=== PATIENT | male | born 1980 | race Caucasian/White ===

== ENCOUNTER → 2019-07-08 | Emergency (ER) | payer SELFPAY | PROVIDERS: Family Provider Family Medicine | DX: R07.9 Chest pain, unspecified (principal); I25.2 Old myocardial infarction; I10 Essential (primary) hypertension; J45.909 Unspecified asthma, uncomplicated; Z86.73 Personal history of transient ischemic attack (TIA), and cerebral infarction without residual deficits; F17.220 Nicotine dependence, chewing tobacco, uncomplicated; Z88.0 Allergy status to penicillin | CPT/HCPCS: 36415; 71045; 80053; 84484 ×2; 85025; 85378; 93005; 96374; 99284; J2270 ==

== ENCOUNTER → 2019-07-15 14:20 | Outpatient (BNVA) | payer OTHER, SELFPAY | PROVIDERS: Family Provider Family Medicine; PCP Family Medicine; Visit Provider Nurse Practitioner | DX: J10.1 Influenza due to other identified influenza virus with other respiratory manifestations (principal) | CPT/HCPCS: 87804 ==

== ENCOUNTER → 2019-08-27 15:39 | Outpatient (BNVA) | payer OTHER, SELFPAY | PROVIDERS: Family Provider Family Medicine; PCP Family Medicine; Visit Provider Family Medicine | DX: I10 Essential (primary) hypertension (principal); R10.13 Epigastric pain; R94.5 Abnormal results of liver function studies; R06.09 Other forms of dyspnea | CPT/HCPCS: 80053 ==

== ENCOUNTER 2019-09-13 11:20 | Emergency (ER) | payer OTHER, SELFPAY ==
[2019-09-13 11:23] VITALS: BP 153/114; PULSE 104; RESP 20; TEMP 36.8; O2SAT 95; BMI 32.1
--- NOTE | 2019-09-13 11:28 | ED_ITS ---
Entered by Elinor Turner, acting as scribe for Karina Frost Sep 13, 2019 11:20 HPI - SOB/Dyspnea General: Chief Complaint: Shortness of Breath/Dyspnea Stated Complaint: SOB Time Seen by Provider: 09/13/19 11:28 Source: patient and RN notes reviewed Mode of arrival: ambulatory Limitations: no limitations History of Present Illness: HPI Narrative: 39 yo male presents to ED with complaints of shortness of breath. The patient has audible wheezes. The patient had the flu about a month ago. The patient states this initially began 2 months ago but worsened this morning. The patient states he has a history of HTN. The patient states he is undergoing outpatient treatment for his breathing problems. MD elicited complaint: shortness of breath Pertinent past history: other (recent flu, bronchitis) Onset (ago): hour(s) (9 (0230)) Context: recent illness (flu) Timing: constant Severity: severe Exacerbating factors: lying flat and exertion Relieving factors: nothing Known history of: other (flu, bronchitis) Associated symptoms: Reports no associated symptoms; Deny abdominal pain, chest congestion, chest pain, diaphoresis, dizziness, extremity pain, fever(s), hemoptysis, nausea, orthopnea, palpitations, polydipsia, syncope or vomiting Treatment prior to arrival: none Related Data: Home oxygen amount: none Review of Systems General: Reports: other (negative unless marked) Const: Denies: fever, chills, body aches, fatigue, malaise or diaphoresis Eyes: Denies: change in vision or blurry vision ENMT: Denies: throat pain, painful swallowing, hoarseness, ear pain, ear discharge, Change in hearing or nasal discharge Card: Denies: chest pain, palpitations, irregular heart rhythm, syncope, pre- syncope, shortness of breath on exertion or shortness of breath when lying down Resp: Reports: shortness of breath, productive cough and wheezing; Denies: coughing up blood or chest congestion GI: Denies: abdominal pain, nausea, vomiting, vomiting blood, coffee grounds in vomit, diarrhea, constipation, cramping, blood in stool or black tarry stool : Denies: flank pain, difficulty urinating, painful urination, urinary frequency, urinary urgency, decreased urine ouput, urinary incontinence or blood in urine Musc: Denies: neck pain, back pain, extremity pain, extremity swelling, joint pain, joint swelling, joint warmth or joint stiffness Skin/Breast: Denies: rash, skin tenderness or yellow skin Neuro: Denies: headache, numbness in extremities, weakness in extremities, changes in sensation, lack of coordination, difficulty walking, dizziness, vertigo or confusion Endo: Denies: excessive thirst, tired all the time, cold intolerance, excessive sweating, flushing or hot flashes Oscar/Lymph: Denies: easy bruising, easy bleeding, petechiae or enlarged lymph nodes All/Imm: Denies: hives, throat swelling, tongue swelling, facial swelling or acute wheezing PFSH ED PFSH: Medical History Benign essential HTN CVA (cerebral vascular accident) Surgical History History of facial surgery History of hand surgery Family History Brother Cancer Grandfather Cancer Grandmother Cancer Family/Other Cancer Other Alcoholic CAD (coronary artery disease) Chronic kidney disease (CKD) Diabetes Stroke Social History Smoking and tobacco status: former smoker Alcohol intake: current Alcohol intake frequency: 0-2 Drinks per Day Alcohol type: beer and hard liquor Physical Exam Const: COMMON NORMALS: no apparent distress, oriented x3, no limitations, healthy appearing and well nourished EXAM LIMITATIONS: no altered mental status GENERAL APPEARANCE: cooperative, well kempt and well developed ORIENTATION/CONSCIOUSNESS: Yes awake HENMT: COMMON NORMALS: normocephalic, head/scalp atraumatic, hearing grossly normal bilaterally, external ears normal, EAC's normal, external nose normal and moist oral mucous membranes HEAD & SCALP: normal to inspection, normocephalic and atraumatic FACE & SINUS: normal facial exam and face symmetric NOSE: external nose normal and nares normal EXTERNAL EAR: Yes external ears normal EXTERNAL AUDITORY CANAL: EAC's normal MOUTH: oral and palatal mucosa normal and tongue normal Eye: COMMON NORMALS: PERRL, EOMs intact bilaterally, conjunctivae normal and no scleral icterus GENERAL EYE: normal appearance of both eyes and normal light reflex CONJUNCTIVA: Yes conjunctivae normal SCLERA: sclerae normal CORNEA: Yes corneas normal PUPIL: Yes PERRL DIRECT OPHTHALMOSCOPY: Yes normal light reflex Neck/C-Spine: COMMON NORMALS: full ROM, no lymphadenopathy, supple, no meningeal signs and no JVD GENERAL: Yes normal visual inspection and Yes trachea midline CERVICAL SPINE: Yes cervical ROM normal Chest: COMMONS NORMALS: inspection of chest normal and palpation of chest normal Resp: COMMON NORMALS: no retractions and no use of accessory muscles EFFORT & INSPECTION: Yes able to speak in complete sentences AUSCULTATION: rhonchi, wheezes and diminished lung sounds Cardio: COMMON NORMALS: no JVD, regular rate, regular rhythm, S1 normal heart sound, S2 normal heart sound, no gallops, no clicks, no murmurs and no rub JUGULAR VENOUS DISTENTION: no JVD RATE: regular rate RHYTHM: regular rhythm HEART SOUNDS: S1 normal and S2 normal GI: COMMON NORMALS: soft to palpation, non-tender, no hepatosplenomegaly and no masses INSPECTION: Yes normal to inspection PALPATION: Yes soft and Yes no hepatosplenomegaly : COMMON NORMALS: Yes no CVA tenderness BLADDER/KIDNEY EXAM: Yes no CVA tenderness Back/Pelvis: COMMON NORMALS: no CVA tenderness, thoracic and lumbar spine normal to inspection, no thoracic nor lumbar tenderness and thoraco-lumbar ROM normal Extremity: COMMON NORMALS: normal to inspection, full ROM, normal capillary refill, no joint enlargement, no clubbing, cyanosis or edema and no calf tenderness Neuro: COMMON NORMALS: oriented x3, CN's II-XII intact bilaterally, moves all extremities, no focal motor deficits and no sensory deficits noted MENINGEAL SIGNS: Yes no meningeal signs Psych: COMMON NORMALS: mental status grossly normal, thought process normal, cooperative, affect normal, speech normal and activity/motor behavior normal APPEARANCE: Yes well kempt SPEECH: Yes normal speech THOUGHT PROCESS: normal thought process Skin: COMMON NORMALS: no rashes or lesions noted, skin turgor normal, no jaundice, no petechiae and no mottling GENERAL SKIN EXAM: no rashes or lesions noted and turgor normal Course Vital Signs: Vital signs: Vital Signs Temperature 98.3 F 09/13/19 11:23 Pulse Rate 120 H 09/13/19 11:52 Respiratory Rate 20 H 09/13/19 11:45 Blood Pressure 153/114 09/13/19 11:23 Pulse Oximetry 94 09/13/19 11:45 MDM - SOB/Dyspnea MDM Narrative: Medical decision making narrative: Arrival - Mr. Pan is a nice 39-year-old male comes in complaining of cough, shortness of breath and wheezing. He denies any fever. List of his possibilities is extensive including bronchitis with bronchospasm, COPD exacerbation, congestive heart failure, pulmonary embolism among many others. Patient is currently undergoing outpatient work-up for breathing issues. Because of his outpatient directed work-up we will go ahead and obtain more thorough evaluation here at this time. Work-up will be geared toward dyspnea with cardiac and pulmonary causes. Discharge -patient's d-dimer is negative as well as his BNP and troponin. I do not believe there is any evidence of acute coronary syndrome, pulmonary embolism using Wells criteria or heart failure. I believe he has bronchitis. He is improved now after his breathing treatments. I believe he is safe and suitable for discharge. He is going to follow-up with his doctor next week denies any other complaints or concerns at this time. He understands to return for symptoms change or he worsens at all. Patient had a heart score of 1 but as he did not complain of chest pain only wheezing and cough and shortness of breath I do not believe it was necessary to keep him here for another troponin. Lab Data: Attestation: I reviewed the patient's lab results. Labs: Lab Results 09/13/19 09/13/19 09/13/19 Range/Units 11:37 11:37 11:37 WBC 8.7 (4.0-10.0) 10^3/ uL RBC 5.90 H (4.1-5.3) 10^6/u L Hgb 18.0 H (11.7-16.6) g/dL Hct 53.0 H (42.0-52.0) % MCV 89.8 (80-94) fL MCH 30.5 (28.0-34.0) pg MCHC 34.0 (30.0-36.0) g/dL RDW 13.5 (12.1-15.1) % Plt Count 265 (130-400) 10^3/c mm MPV 9.0 (7.4-10.4) fL Neut % (Auto) 41.2 % Lymph % (Auto) 30.3 % [place] % (Auto) 6.1 % Eos % (Auto) 21.2 % Baso % (Auto) 1.0 % Neut # (Auto) 3.6 (1.8-7.7) 10^3/u L Lymph # (Auto) 2.6 (0.8-4.8) 10^3/u L [place] # (Auto) 0.5 (0.2-0.9) 10^3/u L Eos # (Auto) 1.9 H (0.0-0.8) 10^3/u L Baso # (Auto) 0.1 (0.0-0.1) 10^3/u L Nucleated RBC % (a uto) 0 % Nucleated RBCs # 0.0 /100WBC D-Dimer (0-0.59) ug/mIFE U Sodium 136 (136-145) mmol/L Potassium 4.6 (3.5-5.1) mmol/L Chloride 99 (98-107) mmol/L Carbon Dioxide 25 (22-29) mmol/L Anion Gap 16.6 (5-19) BUN 8 (6-20) mg/dL Creatinine 1.5 H (0.7-1.2) mg/dL GFR Calculation 51.6 L (90-130) mL/min Glucose 91 (65-115) mg/dL Calcium 10.2 (8.5-10.5) mg/dL Total Bilirubin 0.5 (0.15-1.2) mg/dL AST 42 H (0-40) U/L ALT 65 H (0-41) U/L Alkaline Phosphata se 85 (40-130) IU/L Troponin T Baselin e 6 (0-15) ng/mL NT-Pro-B Natriuret Pep 5 (0-125) pg/mL Total Protein 8.7 (6.6-8.7) g/dL Albumin 4.4 (3.5-5.2) g/dL Globulin 4.3 (1.3-4.6) g/dL Influenza Type A A g (Negative) POC Influenza B Ag (Negative) 09/13/19 09/13/19 Range/Units 11:37 11:45 WBC (4.0-10.0) 10^3/ uL RBC (4.1-5.3) 10^6/u L Hgb (11.7-16.6) g/dL Hct (42.0-52.0) % MCV (80-94) fL MCH (28.0-34.0) pg MCHC (30.0-36.0) g/dL RDW (12.1-15.1) % Plt Count (130-400) 10^3/c mm MPV (7.4-10.4) fL Neut % (Auto) % Lymph % (Auto) % [place] % (Auto) % Eos % (Auto) % Baso % (Auto) % Neut # (Auto) (1.8-7.7) 10^3/u L Lymph # (Auto) (0.8-4.8) 10^3/u L [place] # (Auto) (0.2-0.9) 10^3/u L Eos # (Auto) (0.0-0.8) 10^3/u L Baso # (Auto) (0.0-0.1) 10^3/u L Nucleated RBC % (a uto) % Nucleated RBCs # /100WBC D-Dimer 0.33 (0-0.59) ug/mIFE U Sodium (136-145) mmol/L Potassium (3.5-5.1) mmol/L Chloride (98-107) mmol/L Carbon Dioxide (22-29) mmol/L Anion Gap (5-19) BUN (6-20) mg/dL Creatinine (0.7-1.2) mg/dL GFR Calculation (90-130) mL/min Glucose (65-115) mg/dL Calcium (8.5-10.5) mg/dL Total Bilirubin (0.15-1.2) mg/dL AST (0-40) U/L ALT (0-41) U/L Alkaline Phosphata se (40-130) IU/L Troponin T Baselin e (0-15) ng/mL NT-Pro-B Natriuret Pep (0-125) pg/mL Total Protein (6.6-8.7) g/dL Albumin (3.5-5.2) g/dL Globulin (1.3-4.6) g/dL Influenza Type A A g Negative (Negative) POC Influenza B Ag Negative (Negative) Imaging Data^: CXR: My impression: No acute cardiopulmonary findings. EKG Data^: EKG 1: Attestation: I personally reviewed and interpreted this EKG as follows: EKG Interpretation Date: 09/13/19 EKG interpretation time: 11:44 Interpretation: Normal sinus rhythm at 113 beats a minute, normal axis, normal intervals, no blocks, nonspecific ST and T wave changes, significant baseline artifact. Discharge Plan Discharge Patient Disposition: Home, Self-Care Clinical Impression: Acute wheezy bronchitis Condition: Stable Prescriptions: New doxycycline hyclate 100 mg capsule 100 mg PO BID 10 Days Qty: 20 RF: 0 prednisone 10 mg tablets,dose pack See Rx Instructions .ROUTE .COMPLEX Qty: 21 RF: 0 albuterol sulfate 90 mcg/actuation HFA aerosol inhaler 2 inh INHALATION Q4H PRN (Reason: shortness of breath or wheezing) Qty: 6.7 RF: 0 No Action omeprazole 40 mg capsule,delayed release(DR/EC) 40 mg PO DAILY Qty: 30 RF: 0 lisinopril 20 mg tablet 20 mg PO DAILY Qty: 30 RF: 0 Discharge Orders: Discharge Order (Routine); Ordered 09/13/19 Ordered By: Karina Frost Referrals: Chiquis Daniel DO [Primary Care Provider] - 1-3 days Discharge Diet: Advance as tolerated Discharge Activity: Increase activity as tolerated Patient Instructions: Acute Bronchitis (ED) Activity Restrictions/Additional Instructions: Please return to the ER immediately for any of the signs or symptoms listed on your discharge instruction sheets, worsening/changing of your symptoms, you are not getting better as quickly as expected, or for ANY other cause or concerns. Stand Alone Forms: Work/School Release Coding Level of Care Code ED General Farmworker for Chg Fwd Exam Comprehensive The documentation recorded by the Yue chaudhry Valerie R, accurately reflects the service I personally performed and the decisions made by Santosh holt Eli N Sep 13, 2019 11:20
--- NOTE | 2019-09-13 11:32 | XR_ITS ---
WS: [id number] XR chest 1V portable [id number] REASON FOR EXAM: cough FINDINGS: The heart and mediastinal interfaces were normal. Chest is similar to previous exam of July 08, 2019. The lung alfonso appear to be well aerated. There was no pneumonia, pleural effusion, pulmonary edema, pneumothorax, or mass effect. The hilum and apices are normal. No osseous abnormalities. XR/XR chest 1V portable [id number] IMPRESSION: No active cardiopulmonary changes.
--- NOTE | 2019-09-13 11:32 | ECG_ITS ---
Measurements Intervals [place] Rate: 113 P: 72 PA: 179 QRS: 83 QRSD: 93 T: 52 QT: 319 QTc: 439 SINUS TACHYCARDIA POSSIBLE LEFT ATRIAL ENLARGEMENT [-0.1mV P WAVE IN V1/V2] ABNORMAL RHYTHM ECG Compared to ECG 07/08/2019 17:58:49 Sinus rhythm no longer present Electronically Signed On 09-13-2019 19:05:13 [address] INSPECTOR by Suzanne Tabares M.D. [email or web address]
[2019-09-13 11:37] VITALS: O2SAT 95
[2019-09-13] MEDS: predniSONE 20 mg Tablet 60 MG PO (11:42)
[2019-09-13 11:43] LABS: Basophils # 0.1 10^3/uL (0.0-0.1); Eosinophils # 1.9 10^3/uL (0.0-0.8); Eosinophils % 21.2 %; Lymphocytes # 2.6 10^3/uL (0.8-4.8); Lymphocytes % 30.3 %; Mean Corpuscular Hemoglobin 30.5 pg (28.0-34.0); Mean Corpuscular Volume 89.8 fL (80-94); Monocytes # 0.5 10^3/uL (0.2-0.9); Monocytes % 6.1 %; Neutrophils # 3.6 10^3/uL (1.8-7.7); Neutrophils % 41.2 %; Nucleated Red Blood Cells % 0 %; Platelet Count 265 10^3/cmm (130-400); Red Cell Distribution Width 13.5 % (12.1-15.1); White Blood Count 8.7 10^3/uL (4.0-10.0)
[2019-09-13] MEDS: ipratropium-albuterol 3 mL Neb 9 ML INHALATION (11:44)
[2019-09-13 11:45] VITALS: PULSE 106; RESP 20; O2SAT 94
[2019-09-13 11:52] VITALS: PULSE 120
[2019-09-13 12:03] LABS: D Dimer 0.33 ug/mIFEU (0-0.59); Troponin(5th) Baseline 6 ng/mL (0-15)
[2019-09-13 12:09] LABS: Influenza A by IFA Negative (Negative); Influenza B by IFA Negative (Negative)
[2019-09-13 12:13] LABS: Alanine Aminotransferase 65 U/L (0-41); Albumin Level 4.4 g/dL (3.5-5.2); Alkaline Phosphatase 85 IU/L (40-130); Anion Gap 16.6 (5-19); Aspartate Amino Transferase 42 U/L (0-40); Blood Urea Nitrogen 8 mg/dL (6-20); Calcium 10.2 mg/dL (8.5-10.5); Carbon Dioxide 25 mmol/L (22-29); Chloride 99 mmol/L (98-107); Globulin 4.3 g/dL (1.3-4.6); Glomerular Filtration Rate 51.6 mL/min (90-130); Glucose 91 mg/dL (65-115); NT Pro B Type Natriuretic Pept 5 pg/mL (0-125); Potassium 4.6 mmol/L (3.5-5.1); Sodium 136 mmol/L (136-145); Total Bilirubin 0.5 mg/dL (0.15-1.2); Total Protein 8.7 g/dL (6.6-8.7)
[2019-09-13] MEDS: doxycycline 100 mg Tablet 200 MG PO (12:30)
[2019-09-13 12:43] VITALS: BP 147/82; PULSE 78; RESP 20; O2SAT 97
== END 2019-09-13 12:44 | disposition home or self-care (01) ==
PROVIDERS: Emergency Provider Emergency Medicine; Family Provider Family Medicine; PCP Family Medicine
DX: J20.9 Acute bronchitis, unspecified (principal); I10 Essential (primary) hypertension; Z86.73 Personal history of transient ischemic attack (TIA), and cerebral infarction without residual deficits; R94.31 Abnormal electrocardiogram [ECG] [EKG]
CPT/HCPCS: 12345; 36415; 71045; 80053; 83880; 84484; 85025; 85378; 87804; 93005; 94640; 96374; 99283; 99284; J7512

== ENCOUNTER 2019-09-15 07:04 | Outpatient (CLI) | payer OTHER, SELFPAY ==
[2019-09-15 07:16] VITALS: BMI 32.0
--- NOTE | 2019-09-15 07:25 | ECG_ITS ---
NAME OF STUDY: EXERCISE SESTAMIBI STRESS TEST INDICATION: Dyspnea on Exertion; Chest Pain PROCEDURE: The baseline electrocardiogram showed normal sinus rhythm with normal ST-Ts. At the baseline, the patient's blood pressure was 149/108 mm Hg with a heart rate of 103. The patient exercised for 8 minutes and 1 second on a standard Nico protocol. Patient attained a maximum heart rate of 160 beats per minute( 89 % of the maximum predicted heart rate) with a blood pressure at the peak exercise of 208/85 mm Hg. The EKG at the peak exercise revealed no significant changes. Patient did not have any chest pain or any significant arrhythmis with the exercise Sestamibi was injected 1 minute prior to the peak exercise During the recovery phase, there were no new changes. Blood pressure at the end of the recovery phase was 179/124 mm Hg with a heart rate of 109 per minute. CONCLUSION: 1. No significant EKG changes with the [treadmill exercise 2. No exercise-induced chest pain or cardiac arrhythmia. Hypertensive response to exercise 3. Fair exercise tolerance, attained a maximum of 10.2 METs 4. Sestamibi/Sestamibi perfusion results pending; see separate report. Electronically Signed On 09-18-2019 6:52:08 CDT by Margarita Park M.D. [email or web address]
--- NOTE | 2019-09-15 07:26 | NMCV_ITS ---
NM mitchell perf SPECT r/s* [id number] Ty Pan Age: 39 Gender: M : 1980 Exam Date: 09/15/2019 08:15 Ordering Phys: Chiquis Daniel DO Technologist: MAC Sampson Exam Location: [facility] Indications: DYSPNEA ON EXERTION STRESS TEST Please see separate stress test report in [facility] for full findings IMAGE PROTOCOL Rest/Stress 1 Exercise Day Radiopharmaceutical Dose (mCi) Administration Site Administered by Rest: Tc-99m 10.7 IV MAC Ballesteros Sestamiphilip Stress:Tc-99m 33.0 IV MAC Ballesteros Sestamiphilip Rest: 15-Sep-2019 60 Discovery 630 Stress: 15-Sep-2019 15 Discovery 630 Radiopharmaceutical was injected at 86 % maximum heart rate. Images obtained in supine and prone position. SPECT RESULTS Technical Quality: Excellent Raw Data Analysis: Normal Image Corrections: No attenuation or motion correction applied Summed Stress Score: 0 Summed Rest Score: 0 Summed Difference Score: 0 PERFUSION FINDINGS Fairly uniform myocardial tracer uptake. No significant perfusion normalities were noted FUNCTIONAL RESULTS (calculated via Gated SPECT) Stress Image LV EF (%): 62 Stress EDV (mL):119 TID: 0.82 Stress ESV (mL):45 FUNCTIONAL FINDINGS: Segmental wall motion analysis revealed no gross wall motion normalities IMPRESSIONS 1. Unremarkable myocardial perfusion imaging 2. Normal LV ejection fraction 62%. 3. LV wall motion analysis revealing no gross wall motion normalities. 4. LV volume upper limit of normal, end-systolic volume of 45 mL No significant ischemia, based on the above findings Dr Margarita Park MD FACC (Electronically Signed) Final Date: 15 September 2019 22:39 S
--- NOTE | 2019-09-15 09:06 | US_ITS ---
WS: [id number] RIGHT UPPER QUADRANT ULTRASOUND HISTORY: LIVER ENZYMES COMPARISON: None available. Liver: 16.9 cm in length. Normal size liver. Mild coarsened echotexture. Findings of hepatic steatosi s. No bile duct dilatation. Gallbladder: Normally distended gallbladder with no stones or wall thickening. CBD: 0.6 cm Pancreas: Not visualized. Right kidney: 12.3 cm in length. Normal echogenicity with no mass or hydronephrosis. Aorta and IVC: Unremarkable. No ascites. US/US abdomen limited [id number] IMPRESSION: 1. Mild hepatic steatosis. 2. Normal gallbladder.
--- NOTE | 2019-09-15 09:36 | SUR.PREOP ---
Patient reports no pain or discomfort prior to the start of the procedure.
--- NOTE | 2019-09-15 09:55 | SUR.PHASEII ---
Patient short of breath post procedure. MD notified. Patient states he takes an albuterol inhaler at home as needed but he forgot to bring it today. Orders for one time albuterol nebulizer recieved. Noted.
[2019-09-15 10:04] VITALS: PULSE 109; RESP 20; O2SAT 92
[2019-09-15 10:06] VITALS: BP 172/104; PULSE 110
[2019-09-15 10:13] VITALS: PULSE 106
== END 2019-09-15 07:05 | disposition home or self-care (01) ==
LOC: CDL 07:08
PROVIDERS: Family Provider Family Medicine; PCP Family Medicine; Visit Provider Family Medicine
DX: K76.0 Fatty (change of) liver, not elsewhere classified (principal); R06.09 Other forms of dyspnea; R74.8 Abnormal levels of other serum enzymes
CPT/HCPCS: 76705; 78452; 93017; 94640; A9500; J7611

== ENCOUNTER → 2019-09-22 15:43 | Outpatient (BNVA) | payer OTHER, SELFPAY | PROVIDERS: Family Provider Family Medicine; PCP Family Medicine; Visit Provider Family Medicine | DX: R06.09 Other forms of dyspnea (principal); I10 Essential (primary) hypertension; R10.13 Epigastric pain; R79.89 Other specified abnormal findings of blood chemistry; R94.5 Abnormal results of liver function studies | CPT/HCPCS: 80053; 80074 ==

== ENCOUNTER 2019-11-22 17:19 | Inpatient (IN) | payer OTHER, SELFPAY ==
[2019-11-22] VITALS (7 sets, daily range): BP systolic 156–191; BP diastolic 94–126; PULSE 89–103; RESP 14–20; TEMP 36.7–36.8; O2SAT 92–94; BMI 31.1
--- NOTE | 2019-11-22 17:40 | XRR_ITS ---
PROCEDURE INFORMATION: Exam: XR Chest, 2 Views Exam date and time: 11/22/2019 6:13 PM Age: 39 years old Clinical indication: Dyspnea TECHNIQUE: Imaging protocol: XR of the chest Views: 2 views. COMPARISON: CR XR chest 1V portable [id number] 09/13/2019 11:54 AM FINDINGS: Lungs: Unremarkable. No consolidation. Pleural space: Unremarkable. No pleural effusion. No pneumothorax. Heart/Mediastinum: Unremarkable. No cardiomegaly. Bones/joints: Unremarkable. XR/XR chest 2V* [id number] IMPRESSION: No acute findings.
[2019-11-22] MEDS: predniSONE 20 mg Tablet 60 MG PO (17:43)
--- NOTE | 2019-11-22 17:43 | W.ED.SOB ---
HPI - SOB/Dyspnea General: Chief Complaint: Shortness of Breath/Dyspnea Stated Complaint: sob/cough Time Seen by Provider: 11/22/19 17:27 History of Present Illness: HPI Narrative: Patient is a 39 year old male presenting with shortness of breath and wheezing. He reports that he had asthma as a kid but doesn't remember ever having to use an inhaler. He was born prematurely and his parents smoked in the house when he was young. He is a former smoker - says that he quit about 6 or 7 years ago. He also reports that he has had 3 heart attacks and a stroke, with his first heart attack at age 13. 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 He never had any breathing problems like this until about the past 2 years. For the past two years he has had recurrent episodes like this with cough, wheezing, shortness of breath, productive cough. He has been seeing his PCP and has been to urgent care several times. He says that he gets steroids or antibiotics or both and gets better for a few weeks and then it comes back. This episode is worse than usual and he almost passed out at because of coughing so much. He also feels like he pulled a muscle in his chest due to coughing. He often coughs so hard that he throws up. He has a PFT scheduled for the of this month. He has seen Dr. Park and had an echo and stress test without findings. He has baseline HTN that is poorly controlled. He says that he takes his medications but it doesn't help it. MD elicited complaint: shortness of breath and cough Pertinent past history: asthma and pneumonia Onset (ago): year(s) (2) Timing: constant and progressively worsening Severity: severe Exacerbating factors: lying flat, exertion, movement and coughing Known history of: asthma and recurrent pneumonia Associated symptoms: Reports chest pain, dizziness, lightheadedness and vomiting; Deny fever(s) Treatment prior to arrival: bronchodilator (has an inhaler at home and got a neb treatment at - helps for a short time) Review of Systems General: Reports: 10 or more systems reviewed and unremarkable except in HPI and below Const: Reports: fatigue; Denies: fever(s), chills or body aches ENMT: Denies: throat pain, nasal discharge or nasal congestion Card: Reports: chest pain, lightheadedness and dyspnea on exertion Resp: Reports: dyspnea, productive cough and wheezing GI: Reports: vomiting Musc: Denies: back pain or extremity swelling Neuro: Reports: dizziness PFSH ED PFSH: Medical History Benign essential HTN CVA (cerebral vascular accident) Surgical History History of facial surgery History of hand surgery Family History Brother Cancer Grandfather Cancer Grandmother Cancer Family/Other Cancer Other Alcoholic CAD (coronary artery disease) Chronic kidney disease (CKD) Diabetes Stroke Social History Smoking and tobacco status: never smoked Alcohol intake: former Former alcohol use details: quit heavy drinking in 2019 Physical Exam Const: COMMON NORMALS: average body habitus (very tall), patient oriented x3, healthy appearing, alert and well nourished GENERAL APPEARANCE: cooperative and well developed HENMT: HEAD & SCALP: normal to inspection FACE & SINUS: normal facial exam Neck/C-Spine: COMMON NORMALS: no JVD Chest: COMMONS NORMALS: normal inspection of the chest Resp: EFFORT & INSPECTION: Yes able to speak in complete sentences (but with some dyspnea), Yes symmetric chest movement, Yes tachypneic, Yes uses accessory muscles and Yes audible wheezes AUSCULTATION: wheezes expiratory wheezes, inspiratory wheezes and throughout Cardio: COMMON NORMALS: no JVD, regular rate, regular rhythm and No murmurs present (Cardio) RATE: regular rate RHYTHM: regular rhythm GI: COMMON NORMALS: Normal to inspection, nondistended, normoactive bowel sounds present, Soft to palpation and non-tender PALPATION: Yes Soft to palpation : COMMON NORMALS: Yes no CVA tenderness BLADDER/KIDNEY EXAM: Yes no CVA tenderness Back/Pelvis: COMMON NORMALS: no CVA tenderness and thoracic and lumbar spine normal to inspection Neuro: COMMON NORMALS: patient oriented x3 SENSORIUM/ORIENTATION: Yes alert Psych: COMMON NORMALS: mental status grossly normal, cooperative and normal affect Skin: COMMON NORMALS: no rashes or lesions noted GENERAL SKIN EXAM: no rashes or lesions noted Course ED course: Patient with sat of 89% on recheck - he rested comfortably on the bed - but was still dyspneic after a sentance or two and with ambulating to the bathroom. He has not improved with zaynab bell MDI, prednisone. He is willing to stay in the hospital - he now tells me that he passed out at home last night due to a coughing spell. He also had a near syncope at today. Will admit for further evaluation and treatment. Vital Signs: Vital signs: Vital Signs Temperature 98.3 F 11/22/19 17:26 Pulse Rate 93 11/22/19 18:17 Respiratory Rate 16 11/22/19 18:17 Blood Pressure 191/126 11/22/19 17:26 Pulse Oximetry 93 11/22/19 18:17 Discharge Plan Discharge Admit Provider: Fahad Calderon Coding Level of Care Code ED Vice President [employer]ights for Chg Fwd Exam Comprehensive
--- NOTE | 2019-11-22 20:02 | ECG_ITS ---
Measurements Intervals [place] Rate: 89 P: 60 GA: 174 QRS: 28 QRSD: 93 T: 42 QT: 354 QTc: 433 SINUS RHYTHM Compared to ECG 09/13/2019 11:44:20 Sinus tachycardia no longer present Electronically Signed On 11-23-2019 9:33:35 CDT by Deena Marino M.D. [email or web address]
[2019-11-22] MEDS: sodium chloride 0.9% 1,000 ML 999 ML IV (21:01)
[2019-11-22 21:02] LABS: Procalcitonin 0.12 ng/mL (0-0.5)
--- NOTE | 2019-11-22 21:08 | P.HP_ITS ---
Providers/Chief Complaint Admitting Physician: Fahad Calderon Primary Care Provider: Chiquis Daniel DO Chief Complaint: sob/cough History of Present Illness Ty Pan is a 39 year old male with past medical history of asthma who presents with complaints of shortness of breath and wheezing. Recent worsening of his symptoms started about a week ago. He has to use his albuterol inhaler very frequently. However today even the rescue inhaler did not provide any significant improvement of his symptoms. He states that his wheezing has been present for last year or 2 without any significant long periods of remission. He reports associated productive cough with yellow thick mucus. He reports substernal chest discomfort when he coughs. Denies hemoptysis. No fevers or chills. He reports that breathing treatments in ER helped a little. He also reports that frequently he experiences near fainting episodes when he coughs so hard and long. He does have history of mini stroke/TIA but near fainting episodes are clearly connected with episodes of cough. He denies any problems with speech, headache, focal weakness, sensory loss, facial asymmetry, visual problems. He denies any chest pain which is not related to cough. 3 months ago he underwent nuclear stress test which was unremarkable. Review of systems otherwise is negative except positive and negative pertinence described above. All systems reviewed Review of Systems General: Reports: 10 or more systems reviewed and unremarkable except in HPI and below Medications/Allergies Home Medications Medication Instructions Recorded Confirmed Last Taken Type amlodipine 10 mg tablet 10 mg PO DAILY #30 tab 09/22/19 11/22/19 Unknown Rx lisinopril 20 mg tablet 20 mg PO DAILY #30 tab 09/22/19 11/22/19 Unknown Rx pantoprazole 40 mg tablet,delayed 40 mg PO DAILY #30 tab 09/22/19 11/22/19 Unknown Rx release albuterol sulfate 90 mcg/actuation 2 inh INHALATION Q4H PRN #6.7 gm 10/22/19 11/22/19 Unknown Rx aerosol inhaler Allergies Allergy/AdvReac Type Severity Reaction Status Date / Time Penicillins Allergy Unknown Verified 11/22/19 16:13 PFSH Acute PFSH: Medical History Benign essential HTN CVA (cerebral vascular accident) Surgical History History of facial surgery History of hand surgery Family History Brother Cancer Grandfather Cancer Grandmother Cancer Family/Other Cancer Other Alcoholic CAD (coronary artery disease) Chronic kidney disease (CKD) Diabetes Stroke Social History Smoking and tobacco status: never smoked Alcohol intake: former Former alcohol use details: quit heavy drinking in 2019 Vitals/I&O/Wt Last Vital Signs Temp 98.3 F 11/22/19 17:26 Pulse 93 11/22/19 18:17 Resp 16 11/22/19 18:17 BP 191/126 11/22/19 17:26 Pulse Ox 93 11/22/19 18:17 Weight last 48 hrs Weight 131.542 kg Physical Exam Narrative: EXAM NARRATIVE: The patient is awake alert and oriented. Currently in no acute distress. Mood and affect are appropriate. Responses are adequate. Normal speech in regular sentences. Coughs frequently. Skin is warm and dry. Moist mucous membranes. Eyes Eloisa, extraocular muscle intact. Neck is supple. No JVD Lungs mild tachypnea is present. Bilateral diffuse expiratory wheezes are present. No accessory muscle use. No tripoding. Heart S1, S2, regular Abdomen soft, nontender, bowel sounds are present Extremities no edema cyanosis or calf tenderness bilaterally Neuro examination is nonfocal. Normal gait and balance. Data CXR: My impression: Chest x-ray seems to be unremarkable without any acute cardiopulmonary findings. Please review official radiology report when it is available. A&P Additional A&P Information 39-year-old male with past medical history of recurrent asthma probably not well controlled who is presenting with shortness of breath, wheezing, cough. Severe asthma exacerbation probably secondary to bacterial bronchitis. Starting IV steroids, IV Levaquin, frequent aggressive respiratory treatments. He will also receive a dose of magnesium sulfate IV. He would benefit from outpatient pulmonary referral and probably will need maintenance inhalers at discharge. Near fainting episodes. It sounds like he had vasovagal event. No acute neurologic findings on exam. Continue close monitoring. Since he reports prior history of TIA I will also order baby aspirin for prophylactic reasons. Hypertensive urgency. We will resume his home medications and order as needed hydralazine. DVT prophylaxis. Lovenox. History of GERD. We will continue his home PPI. CODE STATUS he wants to be full code. The plan of care was discussed with the patient. He verbalized understanding and agreement. Attestations Medical Necessity Statement*: Based on my assessment of his current condition and the treatment plan he will require more than 2 midnights in the hospital. 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
[2019-11-22 21:13] LABS: Alanine Aminotransferase 42 U/L (0-41); Albumin Level 4.7 g/dL (3.5-5.2); Alkaline Phosphatase 74 IU/L (40-130); Anion Gap 17.5 (5-19); Aspartate Amino Transferase 32 U/L (0-40); Blood Urea Nitrogen 7 mg/dL (6-20); Calcium 10.3 mg/dL (8.5-10.5); Carbon Dioxide 25 mmol/L (22-29); Chloride 102 mmol/L (98-107); Globulin 3.4 g/dL (1.3-4.6); Glomerular Filtration Rate 55.8 mL/min (90-130); Glucose 109 mg/dL (65-115); Osmolality Calculated 286 mOsm/kg (285-295); Potassium 4.5 mmol/L (3.5-5.1); Sodium 140 mmol/L (136-145); Total Bilirubin 0.6 mg/dL (0.15-1.2); Total Protein 8.1 g/dL (6.6-8.7)
[2019-11-22] MEDS: magnesium sulfate premix 2 GM/50 ML PIGGYBACK IV (22:15)
[2019-11-22 22:40] LABS: Glucose Point of Care 113 mg/dL (70-110)
[2019-11-22] MEDS: ipratropium-albuterol 3 mL Neb INHALATION (23:13)
[2019-11-22] MEDS: levofloxacin-dextrose 5 % 750 MG/150 ML PREMIX 100 MG IV (23:37)
[2019-11-23] VITALS (18 sets, daily range): BP systolic 111–147; BP diastolic 45–95; PULSE 92–125; RESP 13–25; TEMP 36.4–36.8; O2SAT 90–95; BMI 30.8
[2019-11-23 00:47] LABS: Basophils # 0.1 10^3/uL (0.0-0.1); Basophils % 1.1 %; Eosinophils # 0.7 10^3/uL (0.0-0.8); Eosinophils % 7.4 %; Hemoglobin 17.3 g/dL (11.7-16.6); Lymphocytes # 1.6 10^3/uL (0.8-4.8); Lymphocytes % 17.1 %; Mean Corpuscular HGB Conc 33.3 g/dL (30.0-36.0); Mean Corpuscular Hemoglobin 30.9 pg (28.0-34.0); Mean Corpuscular Volume 92.9 fL (80-94); Mean Platelet Volume 9.8 fL (7.4-10.4); Monocytes # 0.3 10^3/uL (0.2-0.9); Monocytes % 2.8 %; Neutrophils # 6.5 10^3/uL (1.8-7.7); Neutrophils % 71.2 %; Nucleated Red Blood Cells % 0 %; Platelet Count 315 10^3/cmm (130-400); Red Cell Distribution Width 13.5 % (12.1-15.1); White Blood Count 9.2 10^3/uL (4.0-10.0)
[2019-11-23 05:00] LABS: Basophils % 0.2 %; Eosinophils % 0.2 %; Lymphocytes # 0.9 10^3/uL (0.8-4.8); Lymphocytes % 9.9 %; Mean Corpuscular HGB Conc 33.3 g/dL (30.0-36.0); Mean Corpuscular Hemoglobin 30.7 pg (28.0-34.0); Mean Platelet Volume 9.5 fL (7.4-10.4); Monocytes # 0.1 10^3/uL (0.2-0.9); Neutrophils # 7.6 10^3/uL (1.8-7.7); Neutrophils % 88.1 %; Nucleated Red Blood Cells % 0 %; Platelet Count 275 10^3/cmm (130-400); Red Blood Count 5.22 10^6/uL (4.1-5.3); Red Cell Distribution Width 13.4 % (12.1-15.1); White Blood Count 8.6 10^3/uL (4.0-10.0)
[2019-11-23] MEDS: ipratropium-albuterol 3 mL Neb INHALATION ×5 (05:00→20:16)
[2019-11-23 05:29] LABS: Anion Gap 17.2 (5-19); Blood Urea Nitrogen 8 mg/dL (6-20); Calcium 10.1 mg/dL (8.5-10.5); Carbon Dioxide 22 mmol/L (22-29); Chloride 104 mmol/L (98-107); Glomerular Filtration Rate 60.8 mL/min (90-130); Glucose 252 mg/dL (65-115); Magnesium 2.3 mg/dL (1.7-2.3); Osmolality Calculated 292 mOsm/kg (285-295); Potassium 4.2 mmol/L (3.5-5.1); Sodium 139 mmol/L (136-145)
[2019-11-23 06:13] LABS: Phosphorus 0.9 mg/dL (2.5-4.5)
[2019-11-23] MEDS: aspirin 81 mg EC Tablet PO (08:34)
[2019-11-23] MEDS: amlodipine 10 mg Tablet PO (08:35)
[2019-11-23] MEDS: lisinopril 20 mg Tablet PO (08:35)
[2019-11-23] MEDS: pantoprazole DR 40 mg Tablet PO (08:35)
[2019-11-23 08:49] LABS: Glucose Point of Care 157 mg/dL (70-110)
[2019-11-23 08:49] LABS: Glucose Point of Care 186 mg/dL (70-110)
[2019-11-23 12:05] LABS: Glucose Point of Care 149 mg/dL (70-110)
--- NOTE | 2019-11-23 14:48 | CTR_ITS ---
PROCEDURE INFORMATION: Exam: CT Angiography Chest With Contrast Exam date and time: 11/23/2019 2:58 PM Age: 39 years old Clinical indication: Shortness of breath; Patient HX: Persistent SOB; Additional info: Persistnet johnston, SOB TECHNIQUE: Imaging protocol: Computed tomographic angiography of the chest with intravenous contrast. 3D rendering: MIP and/or 3D reconstructed images were created by the technologist. Radiation optimization: All CT scans at this facility use at least one of these dose optimization techniques: automated exposure control; mA and/or kV adjustment per patient size (includes targeted exams where dose is matched to clinical indication); or iterative reconstruction. Contrast material: OMNI 350; Contrast volume: 95 ml; Contrast route: 18G; COMPARISON: CR XR chest 2V* [id number] 11/22/2019 6:08 PM RADIATION DOSE METRICS: Total DLP: 648.19 mGy-cm FINDINGS: Pulmonary arteries: Suboptimal pulmonary arterial contrast enhancement. This will limit assessment for pulmonary embolism. Respiratory motion artifact. No grossly visible pulmonary embolism/pulmonary arterial thrombus. Aorta: The thoracic aorta is nonaneurysmal. No visible intimal flap or dissection. Lungs: No active interstitial or alveolar airspace disease. Evidence of antecedent granulomatous disease to include pulmonary parenchymal calcified granulomas. Minimal dependent atelectasis. Pleural space: Unremarkable. No pneumothorax. No pleural effusion. Heart: Cardiac structures and configuration reveal mild coronary artery disease of the left anterior descending and left main coronary artery. No visible pericardial effusion. No cardiomegaly. Lymph nodes: No visible active mediastinal or hilar lymphadenopathy. Bones/joints: No visible active musculoskeletal pathology or acute osseous findings. Soft tissues: Unremarkable. CT/CT angio chest PE protcl [id number] IMPRESSION: 1. Suboptimal pulmonary arterial contrast enhancement and respiratory motion limits diagnostic capability in quality of this examination. 2. No grossly visible pulmonary embolism/pulmonary arterial thrombus. 3. Evidence of antecedent granulomatous disease. 4. Mild coronary artery disease. Radiation Dose CTDIVOL = (mGy): DLP = 648.19 (mGy-cm)
--- NOTE | 2019-11-23 14:53 | PM.PN ---
Subjective Subjective: Interval history: Patient continues to be short of breath and has become more tachycardic today. I suspect some of this is from treatment such as steroids and nebulizers but his oxygen requirement has increased also. CTA of the chest was done. It showed no opacities or infiltrates in the lungs. No obvious or gross PE but was suboptimal study. Patient denies any fever. Reports that he has been having these issues with recurrent dyspnea to this degree going back quite some time even before into last year. He has had multiple clinic visits for this this year. Stress testing in September was done. He is scheduled for PFTs on December 04. He tends to get better with antibiotics and steroids but improvement does not last. He does have some occupational exposures. He can feel himself wheezing. Does not feel like anything is ever sticking in his throat nor does he have any swelling in his tongue or difficulty swallowing. He does have reflux. Shortness of breath impacts his ability to do activities. Medications: Reviewed: Yes Vitals/I&O/Wt Last Vital Signs Temp 97.6 F 11/23/19 04:00 Pulse 92 11/23/19 12:11 Resp 18 11/23/19 12:11 BP 131/95 11/23/19 10:00 Pulse Ox 92 11/23/19 12:11 11/22/19 11/23/19 11/23/19 22:59 06:59 14:59 Intake Total 1000 / 1000 550 / 1550 222 / 222 Balance 1000 / 1000 550 / 1550 222 / 222 Weight last 48 hrs Weight 130.635 kg Weight 131.542 kg Physical Exam Narrative: EXAM NARRATIVE: Patient is having to sit up because he is short of breath. He is tachypneic and has some mild abdominal breathing. No nasal flaring or pursed lip breathing. Face is erythematous in sun exposed areas. Conjunctive are injected. Oropharynx is clear. No stridor noted. At the time of my examination no wheezing. He is got a tachycardic but regular rhythm. Able to talk in full sentences. He pauses every now and then. Abdomen is soft. Trace pitting edema. Moves all extremities. Speech is clear Data : 11/23/19 03:52 11/23/19 16:22 A&P Assessment and plan (1) Respiratory distress: Patient reports a history of asthma. He also uses nicotine products. COPD with an asthmatic component is certainly within the differential. He seems to get better with antibiotics and steroids that are prescribed but symptoms quickly returned. 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 He could also be having recurrent re-exposure to an allergen. No evidence on exam of tracheomalacia. He is on a PPI for known reflux. He has had recent stress testing that did not show evidence of ischemia. Myocardial perfusion showed indicated normal left ventricular wall motion and no evidence of perfusion abnormalities. Still like to keep in mind the possibility of cardiac asthma. He has been set up for pulmonary function studies on December 04. On examination no evidence of shunt. He does have red face but it appears to be due to sun exposure. COVID-19 could be considered but with no infiltrates or opacities of any kind on the CT I would think that that would be less likely. PE is certainly within the differential. There were no grossly visible PEs noted on the CTA today but it was a suboptimal study. Here in the hospital he really required 2 L of oxygen. Currently requiring up to 5 L. Status: Acute (2) Near syncope: Status: Acute (3) Sinus tachycardia: I suspect this is in part due to initiation of steroid therapy and scheduled breathing treatments. He has been given an inhaler before but never been exposed to this much albuterol. Status: Acute (4) Hyperglycemia: Without a history of diabetes, may be related to steroids Status: Acute (5) Benign essential HTN: Initially quite elevated but improved with management Status: Acute (6) Chronic kidney disease, stage 3 (moderate): Appears to be at baseline functioning Status: Chronic (7) Nicotine dependence, chewing tobacco, with unspecified nicotine-induced disorders: Status: Chronic Additional A&P Information See if he improves with BiPAP Continue steroids Add inhaled steroids Continue breathing treatments Antibiotics Telemetry monitoring Consider pulmonology consultation in the morning Hold home amlodipine For now continue lisinopril Echocardiogram Hemoglobin A1c Check TSH Check CK Check BMP Encouraged patient to give up chewing tobacco for his overall health Keep on PPI On Lovenox Supportive care otherwise Full code Attestations Medical Necessity Statement*: Requires ongoing inpatient stay for continued management of significant difficulty breathing that is intermittently improved with treatment but frequently returned Coding Level of Care Code Acute Electrician Journeyman 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
--- NOTE | 2019-11-23 16:41 | PC.NURSE ---
to ct scan via wheechair and O2 tank.
[2019-11-23 16:58] LABS: Anion Gap 19.2 (5-19); Blood Urea Nitrogen 11 mg/dL (6-20); Calcium 10.8 mg/dL (8.5-10.5); Carbon Dioxide 21 mmol/L (22-29); Chloride 104 mmol/L (98-107); Glomerular Filtration Rate 55.8 mL/min (90-130); Glucose 203 mg/dL (65-115); Osmolality Calculated 292 mOsm/kg (285-295); Phosphorus 2.2 mg/dL (2.5-4.5); Potassium 4.2 mmol/L (3.5-5.1); Sodium 140 mmol/L (136-145)
[2019-11-23] MEDS: iohexol 350 mg/mL 100 mL Btl IV (16:59)
[2019-11-23 17:28] LABS: Glucose Point of Care 184 mg/dL (70-110)
[2019-11-23] MEDS: enoxaparin 40 mg/0.4 mL Syringe SUBCUT (19:09)
[2019-11-23] MEDS: budesonide 0.5 mg/2 mL Neb INHALATION (20:16)
[2019-11-23 20:48] LABS: Glucose Point of Care 154 mg/dL (70-110)
--- NOTE | 2019-11-23 20:50 | ECG_ITS ---
Measurements Intervals [place] Rate: 119 P: 48 KS: 154 QRS: 28 QRSD: 102 T: 6 QT: 336 QTc: 473 SINUS TACHYCARDIA Compared to ECG 11/22/2019 21:32:43 Sinus rhythm no longer present Electronically Signed On 11-24-2019 20:21:52 CDT by Deena Marino M.D. [email or web address]
[2019-11-23 20:57] LABS: ABG PCO2 32.8 mmHg (35-45); ABG PH Result 7.43 (7.35-7.45); Arterial Blood Gas Hematocrit 51.5 % (42-52); Base Excess ABG -1.5 mmol/L (-2.0-2.0); Blood Gas Allen Test Pos; Blood Gas Sample Site Radial, right; Blood Gas Sample Type Arterial; HCO3 ABG 21.8 mmol/L (22-26); Oxygen Device NC; PO2 ABG 66.2 mmHg (80.0-100.0)
[2019-11-23] MEDS: acetaminophen 325 mg Tablet 650 MG PO (21:26)
[2019-11-23] MEDS: levofloxacin-dextrose 5 % 750 MG/150 ML PREMIX 100 MG IV (21:29)
[2019-11-24] VITALS (16 sets, daily range): BP systolic 109–135; BP diastolic 51–79; PULSE 95–114; RESP 12–26; TEMP 36.4–36.7; O2SAT 90–94
[2019-11-24] MEDS: ipratropium-albuterol 3 mL Neb INHALATION ×5 (00:38→20:17)
--- NOTE | 2019-11-24 06:00 | USCV_ITS ---
Ty Pan Age: 39 Gender: M : 1980 Exam Date: 11/24/2019 06:55 Ordering Phys: Sherry Martinez MD Technologist: Yanira Doyle Exam Location: [facility] – [place] Indication: SOB BP: 134 / 61 HR: 94 Rhythm: Sinus Technical Quality: Adequate MEASUREMENTS (Male / Female) Normal Values 2D ECHO LV Diastolic Diameter PLAX 5.0 cm 4.2 - 5.9 / 3.9 - 5.3 cm LV Systolic Diameter PLAX 3.2 cm LV Chamber Size 3.6 cm IVS Diastolic Thickness 1.8 cm 0.6 - 1.0 / 0.6 - 0.9 cm IVS Systolic Thickness 2.2 cm LVPW Diastolic Thickness 2.3 cm 0.6 - 1.0 / 0.6 - 0.9 cm LVPW Systolic Thickness 2.9 cm RV Chamber Size 3.7 cm LVOT Diameter 2.1 cm LV Ejection Fraction 2D Teich 66.1 % LV Ejection Fraction MOD 2C 66.5 % LV Ejection Fraction 2C AL 68.7 % LA Diameter 5.1 cm LA Width 3.5 cm LA Height 4.5 cm RA Width 3.6 cm RA Height 4.6 cm Aorta at Sinotubular Diameter 2.8 cm M-MODE LV Diastolic Diameter MM 5.2 cm 4.2 - 5.9 / 3.9 - 5.3 cm LV Systolic Diameter MM 3.2 cm LV Ejection Fraction MM Teich 67.5 % IVS Diastolic Thickness MM 0.9 cm 0.6 - 1.0 / 0.6 - 0.9 cm IVS Systolic Thickness MM 1.0 cm LVPW Diastolic Thickness MM 1.1 cm 0.6 - 1.0 / 0.6 - 0.9 cm LVPW Systolic Thickness MM 1.2 cm Aortic Annulus Diameter 3.7 cm LA Ao Ratio MM 1.4 MV E Point Septal Separation 0.7 cm DOPPLER AV Peak Velocity 158.0 cm/s LVOT Peak Velocity 129.0 cm/s AV Area Cont Eq vti 3.3 cm squared AV Area Cont Eq pk 2.7 cm squared MV Area PHT 6.7 cm squared Mitral E to A Ratio 4.3 MV E' Velocity 18.0 cm/s Mitral E to MV E' Ratio 5.8 Mitral E to LV E' Lateral Ratio 6.1 Mitral E to LV E' Septal Ratio 5.6 TR Peak Velocity 149.0 cm/s TR Peak Gradient 8.8 mmHg TV Peak E Velocity 96.0 cm/s Right Atrial Pressure 3.0 mmHg Pulmonary Artery Systolic Pressu 11.9 mmHg PV Peak Velocity 56.0 cm/s RV Acceleration Time 0.1 s RV Ejection Time 0.2 s RV AcT/ET 0.6 FINDINGS Left Ventricle Normal left ventricular size and systolic function, EF 66 %. No regional wall motion abnormalities. Mild left ventricular hypertrophy. Right Ventricle Normal right ventricular size and systolic function. Right Atrium Normal right atrial size. Left Atrium Normal left atrial size. Mitral Valve No gross abnormalities noted Aortic Valve No gross abnormalities noted Tricuspid Valve Structurally normal tricuspid valve. Pulmonic Valve No gross abnormalities noted Pericardium No pericardial effusion. Aorta Normal aortic annulus size. CONCLUSIONS Normal left ventricular size and systolic function, EF 66 %. No regional wall motion abnormalities. Mild left ventricular hypertrophy. No significant as stenotic or regurgitant lesions. There is no pericardial effusion. There are no intracardiac masses. No previous study is available for comparison. Dr Margarita Park MD FACC (Electronically Signed) Final Date: 24 Nov 2019 14:45 S
[2019-11-24 06:12] LABS: Estmated Average Glucose 126
[2019-11-24 06:30] LABS: Creatine Phosphokinase 119 U/L (39-308); NT Pro B Type Natriuretic Pept 356 pg/mL (0-125)
[2019-11-24 06:36] LABS: Anion Gap 18.5 (5-19); Blood Urea Nitrogen 16 mg/dL (6-20); Calcium 10.1 mg/dL (8.5-10.5); Carbon Dioxide 22 mmol/L (22-29); Chloride 104 mmol/L (98-107); Glomerular Filtration Rate 47.9 mL/min (90-130); Glucose 155 mg/dL (65-115); Magnesium 2.2 mg/dL (1.7-2.3); Osmolality Calculated 289 mOsm/kg (285-295); Phosphorus 3.4 mg/dL (2.5-4.5); Potassium 4.5 mmol/L (3.5-5.1); Sodium 140 mmol/L (136-145); Thyroid Stimulating Hormone 0.47 uIU/mL (0.27-4.20)
[2019-11-24 07:12] LABS: Glucose Point of Care 147 mg/dL (70-110)
[2019-11-24] MEDS: budesonide 0.5 mg/2 mL Neb INHALATION ×2 (07:24→20:17)
[2019-11-24] MEDS: pantoprazole DR 40 mg Tablet PO (09:34)
[2019-11-24] MEDS: aspirin 81 mg EC Tablet PO (09:34)
[2019-11-24] MEDS: lisinopril 20 mg Tablet PO (09:34)
[2019-11-24 11:42] LABS: Glucose Point of Care 205 mg/dL (70-110)
--- NOTE | 2019-11-24 13:42 | PM.PN ---
Subjective Subjective: Interval history: Chart reviewed, continues to require 6 L nasal cannula. Mildly tachycardic and tachypneic. Reports feeling about the same today and is still somewhat ill-appearing. Discussed with who reports that patient has a history of Marfan syndrome, several neck injuries, confirms the patient had childhood history of asthma. Medications: Reviewed: Yes Medication Review Details: Active Medications Generic Name Dose Route Start Last Admin Trade Name Freq PRN Reason Stop Dose Admin Acetaminophen 650 mg 11/22/19 20:57 11/23/19 21:26 Tylenol PO 650 mg Q6H PRN Administration Mild/Mod Pain Or Temp >/= 101 Albuterol/Ipratrop ium 3 ml 11/23/19 00:00 11/24/19 11:08 Duoneb INHALATION 3 ml Q4H.RESPIRATORY S CH Administration Albuterol/Ipratrop ium 3 ml 11/22/19 20:57 Duoneb INHALATION Q2H PRN SHORTNESS OF PAMELA TH Aspirin 81 mg 11/23/19 09:00 11/24/19 09:34 Aspirin Ec PO 81 mg DAILY STEWART Administration Budesonide 0.5 mg 11/23/19 20:00 11/24/19 07:24 Pulmicort INHALATION 0.5 mg BID.RESPIRATORY S CH Administration Dextrose 25 ml 11/22/19 20:57 D50w IVP ONCE PRN hypoglycemia prot ocol Protocol Dextrose 50 ml 11/22/19 20:57 D50w IVP PRN PRN hypoglycemia prot ocol Protocol Enoxaparin Sodium 40 mg 11/23/19 19:00 11/23/19 19:09 Lovenox SUBCUT 40 mg Q24H STEWART Administration Glucagon 1 mg 11/22/19 20:57 Glucagen IM ONCE PRN Adult Acute Hypog lycemia Prot. Protocol Hydralazine HCl 10 mg 11/22/19 20:57 Apresoline IVP Q4H PRN htn Dextrose 500 mls @ 100 mls /hr 11/22/19 20:57 D5w IV ONCE PRN Adult Acute Hypog lycemia Prot Protocol Levofloxacin/Dextr ose 750 mg in 150 mls @ 100 mls/hr 11/22/19 21:15 11/24/19 00:46 Levaquin-D5w IV Infused Q24H STEWART Infusion Protocol Insulin Aspart 0 unit 11/22/19 21:00 11/24/19 09:34 Novolog SUBCUT 1 unit WM&BEDTIME STEWART Administration Protocol Lisinopril 20 mg 11/23/19 09:00 11/24/19 09:34 Prinivil PO 20 mg DAILY STEWART Administration Methylprednisolone Sodium Succinate 60 mg 11/22/19 21:00 11/24/19 09:34 Solu-Medrol IVP 60 mg Q6H STEWART Administration Ondansetron HCl 4 mg 11/22/19 20:57 Zofran IVP Q6H PRN vomiting, or N/V if npo Pantoprazole Sodiu m 40 mg 11/23/19 09:00 11/24/19 09:34 Protonix PO 40 mg DAILY STEWART Administration Tramadol HCl 50 mg 11/22/19 20:57 Ultram PO Q6H PRN MODERATE PAIN Penicillins Allergy (Verified 11/22/19 16:13) Unknown Vitals/I&O/Wt Last Vital Signs Temp 97.7 F 11/24/19 11:05 Pulse 107 H 11/24/19 11:15 Resp 20 H 11/24/19 11:09 BP 120/62 11/24/19 11:05 Pulse Ox 92 11/24/19 11:09 11/23/19 11/24/19 11/24/19 22:59 06:59 14:59 Intake Total 400 / 1122 150 / 1272 480 / 480 Balance 400 / 1122 150 / 1272 480 / 480 Weight last 48 hrs Weight 130.635 kg Weight 131.542 kg Physical Exam Const: COMMON NORMALS: no acute distress and patient oriented x3 GENERAL APPEARANCE: cooperative and comfortable ORIENTATION/CONSCIOUSNESS: Yes awake OTHER: -somewhat ill appearing HENMT: COMMON NORMALS: normocephalic, atraumatic, hearing grossly normal bilaterally and moist oral mucous membranes HEAD & SCALP: normocephalic and atraumatic Eye: COMMON NORMALS: Equal, round and reactive pupils present, EOMs intact bilaterally and conjunctivae normal CONJUNCTIVA: Yes conjunctivae normal PUPIL: Yes Equal, round and reactive pupils present Neck/C-Spine: COMMON NORMALS: full ROM GENERAL: Yes normal visual inspection and Yes trachea midline Resp: COMMON NORMALS: normal respiratory effort, No retractions and No use of accessory muscles EFFORT & INSPECTION: Yes able to speak in complete sentences, Yes symmetric chest movement and Yes tachypneic AUSCULTATION: wheezes expiratory wheezes and diminished lung sounds diffuse OTHER: -on 6 L high flow NC, saturating in low 90s Cardio: COMMON NORMALS: regular rhythm, S1 normal heart sound present, S2 normal heart sound present and No murmurs present (Cardio) RATE: tachycardic RHYTHM: regular rhythm HEART SOUNDS: S1 normal heart sound present and S2 normal heart sound present GI: COMMON NORMALS: Normal to inspection, nondistended, normoactive bowel sounds present, Soft to palpation and non-tender INSPECTION: Yes central obesity PALPATION: Yes Soft to palpation Extremity: COMMON NORMALS: normal to inspection, full ROM, no clubbing, cyanosis or edema and no pedal edema Neuro: COMMON NORMALS: patient oriented x3, moves all extremities, no focal motor deficits and no sensory deficits noted Psych: COMMON NORMALS: mental status grossly normal, Normal thought process present, cooperative, normal affect and speech normal SPEECH: Yes normal speech THOUGHT PROCESS: Normal thought process present Skin: COMMON NORMALS: no rashes or lesions noted, no jaundice, no petechiae and no mottling GENERAL SKIN EXAM: no rashes or lesions noted Data : 11/23/19 03:52 11/24/19 04:17 A&P Assessment and plan (1) Respiratory distress: -Has prior history of asthma, chronic nicotine use -Has required multiple bouts of antibiotics and steroids which seemed to temporarily improve his symptoms -Had recent nuclear stress testing which was negative -Scheduled for PFTs on 12/04 -Noted imaging including CTA which though suboptimal does not show infection or PE -Oxygen requirement appears to be increasing, continue to monitor respiratory status closely -Will discuss case with pulmonology if available -Continue duonebs, steroids, supplemental oxygen as needed, empiric Levaquin -BNP-356; echo ordered but does not clinically appear fluid overloaded -pro calcitonin-0.12 Status: Acute (2) Chronic kidney disease, stage 3 (moderate): -has known CKD stage 3; baseline Cr is around 1.3-1.5 Status: Chronic (3) Benign essential HTN: -Normotensive, continue to monitor vital signs -Amlodipine on hold, continue lisinopril Status: Chronic (4) Hyperglycemia: -A1c-6.0 -Likely reactive and currently on IV steroids Status: Acute (5) Sinus tachycardia: -Likely secondary to respiratory symptoms -TSH wnl Status: Acute Additional A&P Information -Chronic nicotine use, chews tobacco -Obesity: BMI-31 kg/m2 -Marfan's syndrome; no noted aneurysm or dissection on CT scan of chest, no mitral valve abnormality on echo -DVT ppx with Lovenox -GI ppx with PPI -regular diet as tolerated -Dispo: home -Code status: FULL code Attestations Medical Necessity Statement*: Patient requires hospitalization for continued management of respiratory distress with high oxygen requirement. Time Spent in Patient Care: Greater than 35 minutes (>than 50% of time spent in counselling and/or direct pt care on unit). Coding Level of Care Code Acute Assisted Living Home Director for Chg Fwd Exam Comprehensive Diagnoses Respiratory distress R06.03 Chronic kidney disease, stage 3 (moderate) N18.3 Benign essential HTN I10 Hyperglycemia R73.9 Sinus tachycardia R00.0
--- NOTE | 2019-11-24 14:07 | PC.NURSE ---
Pt is asleep and snoring heard V/S: HR-104, rr-15, o2sat is 94% on 6 L NC
[2019-11-24 16:54] LABS: Glucose Point of Care 193 mg/dL (70-110)
[2019-11-24] MEDS: enoxaparin 40 mg/0.4 mL Syringe SUBCUT (19:00)
[2019-11-24 20:26] LABS: Glucose Point of Care 236 mg/dL (70-110)
[2019-11-24] MEDS: levofloxacin-dextrose 5 % 750 MG/150 ML PREMIX 150 MG IV (22:05)
--- NOTE | 2019-11-24 23:20 | PC.NURSE ---
patients went for shower [id number], lung sounds when returned were clear, sat level was 90. when patient went to get back up in bed his sat level went to 85 but leveled out with some breathing and setting. sats running in low 90s at this time.
[2019-11-25] VITALS (16 sets, daily range): BP systolic 118–168; BP diastolic 62–94; PULSE 83–111; RESP 16–28; TEMP 36.5–37.1; O2SAT 90–94
[2019-11-25] MEDS: ipratropium-albuterol 3 mL Neb INHALATION ×5 (01:06→19:34)
[2019-11-25 04:28] LABS: Basophils % 0.1 %; Hematocrit 45.4 % (42.0-52.0); Hemoglobin 14.9 g/dL (11.7-16.6); Lymphocytes % 5.6 %; Mean Corpuscular HGB Conc 32.8 g/dL (30.0-36.0); Mean Corpuscular Hemoglobin 31.5 pg (28.0-34.0); Mean Platelet Volume 9.5 fL (7.4-10.4); Monocytes # 0.5 10^3/uL (0.2-0.9); Monocytes % 3.1 %; Neutrophils # 15.8 10^3/uL (1.8-7.7); Neutrophils % 90.1 %; Nucleated Red Blood Cells % 0 %; Platelet Count 278 10^3/cmm (130-400); Red Blood Count 4.73 10^6/uL (4.1-5.3); White Blood Count 17.6 10^3/uL (4.0-10.0)
[2019-11-25 04:45] LABS: Anion Gap 14.5 (5-19); Blood Urea Nitrogen 19 mg/dL (6-20); Calcium 9.7 mg/dL (8.5-10.5); Carbon Dioxide 23 mmol/L (22-29); Chloride 105 mmol/L (98-107); Glomerular Filtration Rate 60.8 mL/min (90-130); Glucose 172 mg/dL (65-115); Osmolality Calculated 287 mOsm/kg (285-295); Potassium 4.5 mmol/L (3.5-5.1); Sodium 138 mmol/L (136-145)
[2019-11-25 07:14] LABS: Glucose Point of Care 122 mg/dL (70-110)
[2019-11-25] MEDS: budesonide 0.5 mg/2 mL Neb INHALATION ×2 (07:18→19:34)
[2019-11-25] MEDS: aspirin 81 mg EC Tablet PO (08:17)
[2019-11-25] MEDS: lisinopril 20 mg Tablet PO (08:18)
[2019-11-25] MEDS: pantoprazole DR 40 mg Tablet PO (08:19)
[2019-11-25 09:29] LABS: Calcium 9.5 mg/dL (8.5-10.5)
[2019-11-25 11:09] LABS: Glucose Point of Care 139 mg/dL (70-110)
--- NOTE | 2019-11-25 14:58 | PM.PN ---
Subjective Subjective: Interval history: Oxygen requirement decreased to 2 L NC, AM labs noted with increased leukocytosis which is likely steroid induced. Tachycardia improved. Overall, looks better today though feels about the same as he did yesterday. Case discussed with Dr. Mejia with additional testing ordered including ABG, limited echo with bubble study. Medications: Reviewed: Yes Medication Review Details: Active Medications Generic Name Dose Route Start Last Admin Trade Name Freq PRN Reason Stop Dose Admin Acetaminophen 650 mg 11/22/19 20:57 11/23/19 21:26 Tylenol PO 650 mg Q6H PRN Administration Mild/Mod Pain Or Temp >/= 101 Albuterol/Ipratrop ium 3 ml 11/23/19 00:00 11/25/19 11:02 Duoneb INHALATION 3 ml Q4H.RESPIRATORY S CH Administration Albuterol/Ipratrop ium 3 ml 11/22/19 20:57 Duoneb INHALATION Q2H PRN SHORTNESS OF PAMELA TH Aspirin 81 mg 11/23/19 09:00 11/25/19 08:17 Aspirin Ec PO 81 mg DAILY STEWART Administration Budesonide 0.5 mg 11/23/19 20:00 11/25/19 07:18 Pulmicort INHALATION 0.5 mg BID.RESPIRATORY S CH Administration Dextrose 25 ml 11/22/19 20:57 D50w IVP ONCE PRN hypoglycemia prot ocol Protocol Dextrose 50 ml 11/22/19 20:57 D50w IVP PRN PRN hypoglycemia prot ocol Protocol Enoxaparin Sodium 40 mg 11/23/19 19:00 11/24/19 19:00 Lovenox SUBCUT 40 mg Q24H STEWART Administration Glucagon 1 mg 11/22/19 20:57 Glucagen IM ONCE PRN Adult Acute Hypog lycemia Prot. Protocol Hydralazine HCl 10 mg 11/22/19 20:57 Apresoline IVP Q4H PRN htn Dextrose 500 mls @ 100 mls /hr 11/22/19 20:57 D5w IV ONCE PRN Adult Acute Hypog lycemia Prot Protocol Levofloxacin/Dextr ose 750 mg in 150 mls @ 100 mls/hr 11/22/19 21:15 11/24/19 22:05 Levaquin-D5w IV 150 mls/hr Q24H STEWART Administration Protocol Insulin Aspart 0 unit 11/22/19 21:00 11/25/19 11:26 Novolog SUBCUT Not Given WM[facility]ED[facility] Protocol Lisinopril 20 mg 11/23/19 09:00 11/25/19 08:18 Prinivil PO 20 mg DAILY STEWART Administration Methylprednisolone Sodium Succinate 60 mg 11/25/19 20:00 Solu-Medrol IVP Q12H STEWART Metoprolol Tartrat e 25 mg 11/25/19 18:00 Lopressor PO BID STEWART Ondansetron HCl 4 mg 11/22/19 20:57 Zofran IVP Q6H PRN vomiting, or N/V if npo Pantoprazole Sodiu m 40 mg 11/23/19 09:00 11/25/19 08:19 Protonix PO 40 mg DAILY STEWART Administration Tramadol HCl 50 mg 11/22/19 20:57 Ultram PO Q6H PRN MODERATE PAIN Penicillins Allergy (Verified 11/22/19 16:13) Unknown Vitals/I&O/Wt Last Vital Signs Temp 97.9 F 11/25/19 14:51 Pulse 111 H 11/25/19 14:51 Resp 20 H 11/25/19 14:51 BP 168/94 11/25/19 14:51 Pulse Ox 90 11/25/19 14:51 11/24/19 11/25/19 11/25/19 22:59 06:59 14:59 Intake Total 578 / 1058 360 / 1418 480 / 480 Balance 578 / 1058 360 / 1418 480 / 480 Physical Exam Const: COMMON NORMALS: no acute distress and patient oriented x3 GENERAL APPEARANCE: cooperative and comfortable ORIENTATION/CONSCIOUSNESS: Yes awake OTHER: -patient is very tall (6 ft 9 in) HENMT: COMMON NORMALS: normocephalic, atraumatic, hearing grossly normal bilaterally and moist oral mucous membranes HEAD & SCALP: normocephalic and atraumatic Eye: COMMON NORMALS: Equal, round and reactive pupils present, EOMs intact bilaterally and conjunctivae normal CONJUNCTIVA: Yes conjunctivae normal PUPIL: Yes Equal, round and reactive pupils present Neck/C-Spine: COMMON NORMALS: full ROM GENERAL: Yes normal visual inspection and Yes trachea midline Resp: COMMON NORMALS: normal respiratory effort, No retractions and No use of accessory muscles EFFORT & INSPECTION: Yes able to speak in complete sentences, Yes symmetric chest movement and Yes tachypneic AUSCULTATION: no wheezes and diminished lung sounds (air entry improved) diffuse OTHER: -on 2 L NC, saturating in low 90s Cardio: COMMON NORMALS: regular rhythm, S1 normal heart sound present, S2 normal heart sound present and No murmurs present (Cardio) RATE: tachycardic RHYTHM: regular rhythm HEART SOUNDS: S1 normal heart sound present and S2 normal heart sound present GI: COMMON NORMALS: Normal to inspection, nondistended, normoactive bowel sounds present, Soft to palpation and non-tender INSPECTION: Yes central obesity PALPATION: Yes Soft to palpation Extremity: COMMON NORMALS: normal to inspection, full ROM, no clubbing, cyanosis or edema and no pedal edema Neuro: COMMON NORMALS: patient oriented x3, moves all extremities, no focal motor deficits and no sensory deficits noted Psych: COMMON NORMALS: mental status grossly normal, Normal thought process present, cooperative, normal affect and speech normal SPEECH: Yes normal speech THOUGHT PROCESS: Normal thought process present Skin: COMMON NORMALS: no rashes or lesions noted, no jaundice, no petechiae and no mottling GENERAL SKIN EXAM: no rashes or lesions noted Data : 11/25/19 03:35 11/25/19 03:35 A&P Assessment and plan (1) Respiratory distress: -Has prior history of asthma, chronic nicotine use -Has required multiple bouts of antibiotics and steroids which seemed to temporarily improve his symptoms -Had recent nuclear stress testing which was negative -Scheduled for PFTs on 12/04 -Noted imaging including CTA which though suboptimal does not show infection or PE -Oxygen requirement appears to be decreasing today, continue to monitor respiratory status closely. Will likely need home oxygen evaluation prior to discharge -consult by pulmonology, Dr. Mejia appreciated -Continue duonebs, steroids, supplemental oxygen as needed, empiric Levaquin -BNP-356; echo: EF=66%, mild LVH; does not clinically appear fluid overloaded. Ordered limited echo with bubble study for evaluation of shunting particularly in light of underlying connective tissue disease -pro calcitonin-0.12 -respiratory viral PCR ordered -noted leukocytosis today which is likely steroid induced. -pending spirometry -ABG reviewed (7.46/35.4/112), done on 15 L NRB Status: Acute (2) Chronic kidney disease, stage 3 (moderate): -has known CKD stage 3; baseline Cr is around 1.3-1.5 Status: Chronic (3) Benign essential HTN: -BP trending up, continue to monitor vital signs -resume amlodipine, continue lisinopril Status: Chronic (4) Hyperglycemia: -A1c-6.0 -Likely reactive and currently on IV steroids Status: Acute (5) Sinus tachycardia: -Likely secondary to respiratory symptoms -TSH wnl -for optimal BP and HR control, will add low dose metoprolol Status: Acute Additional A&P Information -Chronic nicotine use, chews tobacco -Obesity: BMI-31 kg/m2 -reportedly dx with Marfan's syndrome or some variant thereof during childhood; no noted aneurysm or dissection on CT scan of chest, no mitral valve abnormality on echo -DVT ppx with Lovenox -GI ppx with PPI -regular diet as tolerated -Dispo: home -Code status: FULL code Attestations Medical Necessity Statement*: Patient requires hospitalization for continued management of hypoxia with need for continued supplemental oxygen support and further workup including echo with bubble study. Time Spent in Patient Care: 16 - 35 minutes (>than 50% of time spent in counselling and/or direct pt care on unit). Coding Level of Care Code Acute Picker Machine Operator for Chg Fwd Exam Comprehensive Diagnoses Respiratory distress R06.03 Chronic kidney disease, stage 3 (moderate) N18.3 Benign essential HTN I10 Hyperglycemia R73.9 Sinus tachycardia R00.0
[2019-11-25 16:09] LABS: Glucose Point of Care 138 mg/dL (70-110)
[2019-11-25 16:17] LABS: ABG PCO2 35.4 mmHg (35-45); ABG PH Result 7.46 (7.35-7.45); Arterial Blood Gas Hematocrit 50.2 % (42-52); Base Excess ABG 1.5 mmol/L (-2.0-2.0); Blood Gas Allen Test Pos; Blood Gas Sample Site Radial, left; Blood Gas Sample Type Arterial; HCO3 ABG 24.9 mmol/L (22-26); Oxygen Device NRB
--- NOTE | 2019-11-25 16:35 | P.CONIM_ITS ---
Providers/Reason For Consult Consulting Physican/Specialty*: Pulmonary critical care medicine Reason for Consult*: Hypoxic respiratory failure Attending Physician: Meme Paez MD Primary Care Provider: Chiquis Daniel DO History of Present Illness History of Present Illness Ty Pan is a 39 year old male who presented to the hospital with worsening cough, sputum production, wheezing and exertional shortness of breath. The patient has somewhat of an interesting story. The patient was told as a young person that he had Marfan syndrome. The patient is 6 feet 9 inches tall. I have not examined his arm span. According to the patient, his respiratory status was absolutely normal 2 years ago. In July of last year the patient started experiencing cough, sputum production, intermittent episodes of wheezing and exertional shortness of breath. The patient was diagnosed with asthma as a child however he grew out of it. The patient tells me that over the past year and a half his respiratory status has been progressively getting worse. I am unclear whether the patient was on any controller inhaler medication or he was only using albuterol inhaler. He has also received multiple courses of steroid therapy. Apparently, his symptoms get somewhat better with the steroid however never back to baseline. The patient had been requiring 4 to 6 L of oxygen. Currently the patient is on 4 L oxygen saturating 92%. I have taken the patient off of oxygen and his o xygen saturation dropped to 87% the lowest and varied between 87 and 90%. When I increase the oxygen flow to 15 L his oxygen saturation went up to 93 to 94%. The patient had a CT angiogram which did not reveal any definitive proof for pulmonary embolus. There is no significant emphysema. There is also no evidence of tracheobronchomalacia on the inspiratory film. No lymphadenopathy. The patient had an echocardiogram which is essentially normal. There is no evidence of elevated pulmonary arterial pressure. There is no valvular abnormality or any cardiac chamber enlargement. Cardiac stress test performed in September 2019 did not reveal any abnormality. Abdominal ultrasound performed on September 14 revealed fatty liver and no other abnormalities. The patient does not have significant elevation of his absolute eosinophil level when he presented to the hospital. Review of Systems Narrative: General: No fevers chills night sweats or fatigue Skin: No rash HEENT: No nasal congestion, rhinitis, sinusitis Neck: There is no neck swelling, mass or swollen glands. Respiratory: Please see my HPI. Cardiovascular: No chest pain,orthopnea, paroxysmal nocturnal dyspnea, palpitation or lower extremity edema. Gastrointestinal: No abdominal pain, nausea, vomiting, melena, the patient has occasional heartburns Musculoskeletal: No joint pain or swelling, muscle weakness, morning stiffness, numbness or tingling. Neurological: Patient is awake alert and oriented x3, no paralysis, gross motor function is normal. Psychiatric: No anxiety or depression. Meds/Allergies Home Medications and Allergies Home Medications Medication Instructions Recorded Confirmed Last Taken Type amlodipine 10 mg tablet 10 mg PO DAILY #30 tab 09/22/19 11/22/19 Unknown Rx lisinopril 20 mg tablet 20 mg PO DAILY #30 tab 09/22/19 11/22/19 Unknown Rx pantoprazole 40 mg tablet,delayed 40 mg PO DAILY #30 tab 09/22/19 11/22/19 Unknown Rx release albuterol sulfate 90 mcg/actuation 2 inh INHALATION Q4H PRN #6.7 gm 10/22/19 11/22/19 Unknown Rx aerosol inhaler Allergies Allergy/AdvReac Type Severity Reaction Status Date / Time Penicillins Allergy Unknown Verified 11/22/19 16:13 Current Medications Current Medications Generic Name Dose Route Start Last Admin Trade Name Freq PRN Reason Stop Dose Admin Acetaminophen 650 mg 11/22/19 20:57 11/23/19 21:26 Tylenol PO 650 mg Q6H PRN Administration Mild/Mod Pain Or Temp >/= 101 Albuterol/Ipratropium 3 ml 11/23/19 00:00 11/25/19 11:02 Duoneb INHALATION 3 ml Q4H.RESPIRATORY STEWART Administration Aspirin 81 mg 11/23/19 09:00 11/25/19 08:17 Aspirin Ec PO 81 mg DAILY STEWART Administration Budesonide 0.5 mg 11/23/19 20:00 11/25/19 07:18 Pulmicort INHALATION 0.5 mg BID.RESPIRATORY STEWART Administration Enoxaparin Sodium 40 mg 11/23/19 19:00 11/24/19 19:00 Lovenox SUBCUT 40 mg Q24H STEWART Administration Levofloxacin/Dextrose 750 mg in 150 mls @ 100 mls/hr 11/22/19 21:15 11/24/19 22:05 Levaquin-D5w IV 150 mls/hr Q24H STEWART Administration Protocol Insulin Aspart 0 unit 11/22/19 21:00 11/25/19 16:13 Novolog SUBCUT Not Given WM&BEDTIME STEWART Protocol Lisinopril 20 mg 11/23/19 09:00 11/25/19 08:18 Prinivil PO 20 mg DAILY STEWART Administration Pantoprazole Sodium 40 mg 11/23/19 09:00 11/25/19 08:19 Protonix PO 40 mg DAILY STEWART Administration PFSH Acute PFSH: Medical History Benign essential HTN Chronic kidney disease, stage 3 (moderate) CVA (cerebral vascular accident) History of asthma As a child Surgical History History of facial surgery History of hand surgery Family History Brother Cancer Grandfather Cancer Grandmother Cancer Family/Other Cancer Other Alcoholic CAD (coronary artery disease) Chronic kidney disease (CKD) Diabetes Stroke Social History Smoking and tobacco status: never smoked Alcohol intake: former Former alcohol use details: quit heavy drinking in 2019 Vitals/I&O/Wt Last Vital Signs Temp 97.9 F 11/25/19 14:51 Pulse 111 H 11/25/19 14:51 Resp 20 H 11/25/19 14:51 BP 168/94 11/25/19 14:51 Pulse Ox 90 11/25/19 14:51 11/25/19 11/25/19 11/25/19 06:59 14:59 22:59 Intake Total 360 / 1418 480 / 480 Balance 360 / 1418 480 / 480 Physical Exam Narrative: EXAM NARRATIVE: General: Patient is awake alert and oriented, in no distress while resting. HEENT: Pupil bilateral symmetric, extraocular muscle movement intact, no deformity of the nose Neck: No JVD, no cervical or supraclavicular lymphadenopathy. Respiratory: Inspection: No visible deformity of the chest wall, no scar, tattoos noted Palpation: Trachea is mildly deviated to the right, bilateral symmetric expansion but reduced, bilateral symmetric vocal fremitus present Percussion: Bilateral tympanic percussion note both anterior and posteriorly Auscultation: Bilateral reduced breath sound, no crackles wheezing or rhonchi Cardiovascular: Regular rate and rhythm, S1-S2 present, no murmur, no right ventricular heave, no peripheral edema. Abdomen: Soft, nontender, nondistended, positive bowel sound. No palpable organomegaly. Musculoskeletal: No obvious joint deformity, normal gait. Skin: No rash, no evidence of erythema nodosum or multiforme. Neuro: Mental status is normal, no gross cranial nerve deficit, normal motor and coordination. Data Other Data: Other data: I have reviewed the patient's radiology, microbiologic, laboratory data. Please see the HPI for detail description. A&P Assessment and plan (1) Acute respiratory failure with hypoxia: This is a 38-year-old gentleman with suspected Marfan syndrome with an interesting presentation. The patient had been suffering from cough, sputum production, wheezing and exertional shortness of breath for about a year and a half now. I do not have any previous pulmonary function test available. The patient's chest radiography is essentially normal. As his echocardiogram. His stress test is negative. On physical examination the patient has evidence of reduced airflow bilaterally however there is no significant wheezing or rhonchi. I have obtained an arterial blood gas on 100% oxygen which revealed a pH of 7.46, PCO2 of 35.4, PO2 of 112. This is consistent with significant [id number] shunting. The etiology for this right to left shunting is unclear. The patient could be having intrapulmonary or intracardiac shunting. I am going to obtain a limited echocardiogram with bubble study to evaluate for any evidence of intracardiac or intrapulmonary shunting. There was no evidence of pulmonary artery aneurysm on the CT angiogram of the chest. There is no eosinophilia. I will obtain an IgE level and a comprehensive allergy panel. Currently the patient is receiving Solu-Medrol as well as budesonide and DuoNeb nebulizer. I wonder whether we have a do a pathology. The patient could be having hyperresponsive airway and concomitant shunting. Or there is also a concern whether he has an asthma mimic. There is no evidence of eosinophilic granulomatosis with polyangiitis, tracheobronchomalacia although this cannot be completely ruled out without a bronchoscopy evaluation, allergic bronchopulmonary aspergillosis, diffuse intrapulmonary neuroendocrine cell hyperplasia or carcinoid syndrome. I am going to obtain spirometry tomorrow. We have sent out a respiratory panel PCR. I will continue to follow the patient. Thank you for the interesting consultation. Status: Acute Coding Level of Care Code Acute Funeral Service Licensee for Stella Peck Diagnoses Acute respiratory failure with hypoxia J96.01
[2019-11-25] MEDS: metoprolol tartrate 25 mg Tablet PO (17:40)
[2019-11-25] MEDS: enoxaparin 40 mg/0.4 mL Syringe SUBCUT (17:40)
[2019-11-25 20:23] LABS: Glucose Point of Care 171 mg/dL (70-110)
[2019-11-25] MEDS: levofloxacin-dextrose 5 % 750 MG/150 ML PREMIX 150 MG IV (20:45)
--- NOTE | 2019-11-25 21:08 | PC.NURSE ---
patients said his iv was sore around and above the site. removed iv and inserted new iv, 20 g in right forearm, blood return and flushed well. patient tolerated procedure well.
[2019-11-26] VITALS (14 sets, daily range): BP systolic 135–155; BP diastolic 66–94; PULSE 78–104; RESP 13–23; TEMP 36.4–36.7; O2SAT 89–92
[2019-11-26] MEDS: ipratropium-albuterol 3 mL Neb INHALATION ×6 (00:05→20:52)
[2019-11-26 05:08] LABS: Basophils % 0.1 %; Hematocrit 46.5 % (42.0-52.0); Hemoglobin 15.2 g/dL (11.7-16.6); Mean Corpuscular HGB Conc 32.7 g/dL (30.0-36.0); Mean Corpuscular Hemoglobin 30.8 pg (28.0-34.0); Mean Corpuscular Volume 94.3 fL (80-94); Mean Platelet Volume 9.4 fL (7.4-10.4); Monocytes # 0.6 10^3/uL (0.2-0.9); Monocytes % 4.4 %; Neutrophils # 12.4 10^3/uL (1.8-7.7); Neutrophils % 85.7 %; Nucleated Red Blood Cells % 0 %; Platelet Count 264 10^3/cmm (130-400); Red Blood Count 4.93 10^6/uL (4.1-5.3); Red Cell Distribution Width 13.6 % (12.1-15.1); White Blood Count 14.5 10^3/uL (4.0-10.0)
[2019-11-26 05:35] LABS: Anion Gap 14.4 (5-19); Blood Urea Nitrogen 21 mg/dL (6-20); Calcium 9.6 mg/dL (8.5-10.5); Carbon Dioxide 25 mmol/L (22-29); Chloride 104 mmol/L (98-107); Glomerular Filtration Rate 66.7 mL/min (90-130); Glucose 162 mg/dL (65-115); Osmolality Calculated 288 mOsm/kg (285-295); Potassium 4.4 mmol/L (3.5-5.1); Sodium 139 mmol/L (136-145)
[2019-11-26 06:15] LABS: Glucose Point of Care 153 mg/dL (70-110)
--- NOTE | 2019-11-26 07:00 | USCV_ITS ---
MargaritoTy dimas Age: 39 Gender: M : 1980 Exam Date: 11/26/2019 07:12 Ordering Phys: Suly Mejia MD Technologist: Nayely Garza Exam Location: [facility] [place] Indication: SHUNT EVAL BP: / HR: Rhythm: Sinus Technical Quality: MEASUREMENTS (Male / Female) Normal Values FINDINGS Left Ventricle Normal left ventricular cavity size. Normal left ventricular systolic function. Left ventricular ejection fraction is estimated at 60 %. No regional wall motion abnormalities. Right Ventricle Right Atrium Left Atrium Mitral Valve Aortic Valve Tricuspid Valve Pulmonic Valve Pericardium Aorta CONCLUSIONS Immediate echo to assess intracardiac or pulmonary shunt 1-Normal left ventricular cavity size. Normal left ventricular systolic function. Left ventricular ejection fraction is estimated at 60 %. No regional wall motion abnormalities. 2-Bubble study revealed no intracardiac or intrapulmonary shunt 3-There is no pericardial effusion. 4-Cannot compare with prior echocardiogram due to limited study Suzanne Tabares MD (Electronically Signed) Final Date: 26 Nov 2019 18:18 S
[2019-11-26] MEDS: amlodipine 10 mg Tablet PO (08:46)
[2019-11-26] MEDS: lisinopril 20 mg Tablet PO (08:47)
[2019-11-26] MEDS: aspirin 81 mg EC Tablet PO (08:47)
[2019-11-26] MEDS: metoprolol tartrate 25 mg Tablet PO ×2 (08:47→18:00)
[2019-11-26] MEDS: pantoprazole DR 40 mg Tablet PO (08:47)
--- NOTE | 2019-11-26 09:35 | PC.CHAP ---
Pastoral Care Encounter/Spiritual Assessment Type of Contact [] Declined distribution lead visit [] Patient/Family/Request visit [] Outpatient visit [] Follow-up visit [] Physician referral [] Code/Alert [x] Routine visit [] Staff referral [] Actively dying [] Patient sleeping [] Family support [] [] Out of room [] Palliative care [] [] Receiving care in room [] Pre-surgical visit [] Trauma [] Long length of stay [] ICU visit [] Other: Relational/Emotional Strength [] Patient feels connected with others/family/visitors/staff [] Distress [] Loneliness/isolation [] Abandonment Spirituality of Patient [] Person of Jazmin [] Attends Spiritism of their Jazmin [] Believes in Prayer [] Reads Bible or Holiness materials [] There are Spiritual issues to be addressed [place] Interventions [x] Prayer [] Active listening [] Non-anxious presence [] Spiritual/emotional support [] Crisis/trauma care [] Spiritual counseling [] Bereavement support [] Provided bereavement packet [] Provided Bible/devotional materials [] Provided toy/stuffed animal, coloring book to patient or family member [] Provided Communion [] Anointing/[place] [] Salvation [x] Completed spiritual assessment [] Other: Impact on Illness or Injury [] Angry [] Fearful [] Anxious [] Often cries [] Exhaustion [] Unable to work [] Unable to attend holiness [] Unable to walk/stand [] Unable to read [] Unable to drive [] Unable to eat/drink [] Unable to sleep [] Unable to be with family [] Patient intubated [] Other: Summary Patient finished breathing test. Patient not resting well. Time spent with patient 10 min
[2019-11-26] MEDS: budesonide 0.5 mg/2 mL Neb INHALATION ×2 (09:56→20:51)
--- NOTE | 2019-11-26 11:24 | PM.PN ---
Subjective Subjective: Interval history: Remains on 2-3 L NC, AM labs noted with decreasing leukocytosis, improving Cr. Reports feeling about the same today, has been more ambulatory, desaturates some but compensates quickly. Medications: Reviewed: Yes Medication Review Details: Active Medications Generic Name Dose Route Start Last Admin Trade Name Freq PRN Reason Stop Dose Admin Acetaminophen 650 mg 11/22/19 20:57 11/23/19 21:26 Tylenol PO 650 mg Q6H PRN Administration Mild/Mod Pain Or Temp >/= 101 Albuterol/Ipratrop ium 3 ml 11/23/19 00:00 11/26/19 09:59 Duoneb INHALATION 3 ml Q4H.RESPIRATORY S CH Administration Albuterol/Ipratrop ium 3 ml 11/22/19 20:57 Duoneb INHALATION Q2H PRN SHORTNESS OF PAMELA TH Amlodipine Besylat e 10 mg 11/26/19 09:00 11/26/19 08:46 Norvasc PO 10 mg DAILY STEWART Administration Aspirin 81 mg 11/23/19 09:00 11/26/19 08:47 Aspirin Ec PO 81 mg DAILY STEWART Administration Budesonide 0.5 mg 11/23/19 20:00 11/26/19 09:56 Pulmicort INHALATION 0.5 mg BID.RESPIRATORY S CH Administration Dextrose 25 ml 11/22/19 20:57 D50w IVP ONCE PRN hypoglycemia prot ocol Protocol Dextrose 50 ml 11/22/19 20:57 D50w IVP PRN PRN hypoglycemia prot ocol Protocol Enoxaparin Sodium 40 mg 11/23/19 19:00 11/25/19 17:40 Lovenox SUBCUT 40 mg Q24H STEWART Administration Glucagon 1 mg 11/22/19 20:57 Glucagen IM ONCE PRN Adult Acute Hypog lycemia Prot. Protocol Hydralazine HCl 10 mg 11/22/19 20:57 Apresoline IVP Q4H PRN htn Dextrose 500 mls @ 100 mls /hr 11/22/19 20:57 D5w IV ONCE PRN Adult Acute Hypog lycemia Prot Protocol Levofloxacin/Dextr ose 750 mg in 150 mls @ 100 mls/hr 11/22/19 21:15 11/26/19 00:05 Levaquin-D5w IV Infused Q24H STEWART Infusion Protocol Insulin Aspart 0 unit 11/22/19 21:00 11/26/19 07:18 Novolog SUBCUT 2 unit WM&BEDTIME STEWART Administration Protocol Lisinopril 20 mg 11/23/19 09:00 11/26/19 08:47 Prinivil PO 20 mg DAILY STEWART Administration Methylprednisolone Sodium Succinate 60 mg 11/25/19 20:00 11/26/19 07:16 Solu-Medrol IVP 60 mg Q12H STEWART Administration Metoprolol Tartrat e 25 mg 11/25/19 18:00 11/26/19 08:47 Lopressor PO 25 mg BID STEWART Administration Ondansetron HCl 4 mg 11/22/19 20:57 Zofran IVP Q6H PRN vomiting, or N/V if npo Pantoprazole Sodiu m 40 mg 11/23/19 09:00 11/26/19 08:47 Protonix PO 40 mg DAILY STEWART Administration Tramadol HCl 50 mg 11/22/19 20:57 Ultram PO Q6H PRN MODERATE PAIN Penicillins Allergy (Verified 11/22/19 16:13) Unknown Vitals/I&O/Wt Last Vital Signs Temp 98.1 F 11/26/19 07:43 Pulse 90 11/26/19 10:09 Resp 18 11/26/19 10:09 BP 140/92 11/26/19 07:43 Pulse Ox 91 11/26/19 10:09 11/25/19 11/26/19 11/26/19 22:59 06:59 14:59 Intake Total 240 / 720 150 / 870 480 / 480 Balance 240 / 720 150 / 870 480 / 480 Physical Exam Const: COMMON NORMALS: no acute distress and patient oriented x3 GENERAL APPEARANCE: cooperative and comfortable ORIENTATION/CONSCIOUSNESS: Yes awake OTHER: -patient is very tall (6 ft 9 in) HENMT: COMMON NORMALS: normocephalic, atraumatic, hearing grossly normal bilaterally and moist oral mucous membranes HEAD & SCALP: normocephalic and atraumatic Eye: COMMON NORMALS: Equal, round and reactive pupils present, EOMs intact bilaterally and conjunctivae normal CONJUNCTIVA: Yes conjunctivae normal PUPIL: Yes Equal, round and reactive pupils present Neck/C-Spine: COMMON NORMALS: full ROM GENERAL: Yes normal visual inspection and Yes trachea midline Resp: COMMON NORMALS: normal respiratory effort, No retractions and No use of accessory muscles EFFORT & INSPECTION: Yes able to speak in complete sentences, Yes symmetric chest movement and Yes tachypneic AUSCULTATION: no wheezes and diminished lung sounds (air entry improved) diffuse OTHER: -on 3 L NC, saturating in low 90s Cardio: COMMON NORMALS: regular rhythm, S1 normal heart sound present, S2 normal heart sound present and No murmurs present (Cardio) RATE: tachycardic RHYTHM: regular rhythm HEART SOUNDS: S1 normal heart sound present and S2 normal heart sound present GI: COMMON NORMALS: Normal to inspection, nondistended, normoactive bowel sounds present, Soft to palpation and non-tender INSPECTION: Yes central obesity PALPATION: Yes Soft to palpation Extremity: COMMON NORMALS: normal to inspection, full ROM, no clubbing, cyanosis or edema and no pedal edema Neuro: COMMON NORMALS: patient oriented x3, moves all extremities, no focal motor deficits and no sensory deficits noted Psych: COMMON NORMALS: mental status grossly normal, Normal thought process present, cooperative, normal affect and speech normal SPEECH: Yes normal speech THOUGHT PROCESS: Normal thought process present Skin: COMMON NORMALS: no rashes or lesions noted, no jaundice, no petechiae and no mottling GENERAL SKIN EXAM: no rashes or lesions noted Data : 11/26/19 04:33 11/26/19 04:33 A&P Assessment and plan (1) Acute respiratory failure with hypoxia: -Has prior history of asthma, chronic nicotine use -Has required multiple bouts of antibiotics and steroids which seemed to temporarily improve his symptoms -Had recent nuclear stress testing which was negative -has been scheduled for PFTs on 12/04 -Noted imaging including CTA which though suboptimal does not show infection or PE -Oxygen requirement appears to be decreasing today, continue to monitor respiratory status closely. Will likely need home oxygen evaluation prior to discharge -consult by pulmonology, Dr. Mejia appreciated -Continue duonebs, steroids, supplemental oxygen as needed, empiric Levaquin -BNP-356; echo: EF=66%, mild LVH; does not clinically appear fluid overloaded. Limited echo with bubble study negative for intracardiac or intrapulmonary shunt; done for evaluation of shunting particularly in light of underlying connective tissue disease -pro calcitonin-0.12 -respiratory viral PCR ordered -noted decrease in leukocytosis, this is likely steroid induced. -bedside spirometry done -ABG reviewed (7.46/35.4/112), done on 15 L NRB -comprehensive allergy panel pending; noted IgE elevation (308) Status: Acute (2) Respiratory distress: Status: Resolved (3) Chronic kidney disease, stage 3 (moderate): -has known CKD stage 3; baseline Cr is around 1.3-1.5 -renal function at baseline Status: Chronic (4) Benign essential HTN: -BP better controlled today, continue to monitor vital signs -continue amlodipine, lisinopril Status: Chronic (5) Hyperglycemia: -A1c-6.0 -Likely reactive and currently on steroids Status: Acute (6) Sinus tachycardia: -Likely secondary to respiratory symptoms -TSH wnl -on low dose metoprolol Status: Resolved Additional A&P Information -Chronic nicotine use, chews tobacco -Obesity: BMI-31 kg/m2 -reportedly dx with Marfan's syndrome or some variant thereof during childhood; no noted aneurysm or dissection on CT scan of chest, no mitral valve abnormality on echo -DVT ppx with Lovenox -GI ppx with PPI -regular diet as tolerated -Dispo: home; anticipate discharge home in 24-48 hrs -Code status: FULL code Attestations Medical Necessity Statement*: Patient requires hospitalization for continued management of acute hypoxic respiratory failure, pending completion of workup including echo with bubble study. Time Spent in Patient Care: 16 - 35 minutes (>than 50% of time spent in counselling and/or direct pt care on unit). 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
[2019-11-26 11:46] LABS: Glucose Point of Care 119 mg/dL (70-110)
--- NOTE | 2019-11-26 13:23 | PFTS_ITS ---
Date of Study:11/26/19 Date of Dictation: MECHANICS: Forced vital capacity (FVC) is reduced. Forced expiratory volume in one second (FEV1) is reduced. FEV1/FVC is reduced. FLOW VOLUME LOOP: Significant scooping. LUNG VOLUMES: Not performed DIFFUSING CAPACITY FOR CARBON MONOXIDE: Not performed. INTERPRETATION: The spirometry is consistent with very severe airflow obstruction. MTDD
[2019-11-26 16:46] LABS: Bermuda Class 2; Bermuda Grass (G2) Ige 1.55 kU/L; Cat Dander (E1) Ige 0.63 kU/L; Cat Dander Class 1; Common Ragweed (Short) (W1) Ig 1.45 kU/L; Dog Dander (E5) Ige 1.91 kU/L; Dog Dander Class 2; Elm (T8) Ige 1.44 kU/L; Elm Class 2; English Plantain (W9) Ige 1.36 kU/L; English Plantain Class 2; Immunoglobulin E 284 kU/L (<OR=114); Immunoglobulin E 308 kU/L (<OR=114); Johnson Grass (G10) Ige 1.54 kU/L; Johnson Grass Cl 2; June Grass Class 2; June Grass(Kentucky Blue) (G8) 1.51 kU/L; Lamb'S Quarters (Goose Foot) 1.34 kU/L; Lamb'S Quarters Class 2; Maple (Box Elder) (T1) Ige 1.46 kU/L; Maple Class 2; Meadow Fescue (G4) Ige 1.55 kU/L; Meadow Fescue Class 2; Oak (T7) Ige 1.41 kU/L; Oak Class 2; Orchard Grass (Cocksfoot) (G3) 1.43 kU/L; Perennial Rye Grass (G5) Ige 1.43 kU/L; Perennial Rye Grass Class 2; Ragweeed Class 2; Rough Marsh Elder (W16) Ige 1.36 kU/L; Rough Marsh Elder Class 2; Sweet Vernal Class 2; Sweet Vernal Grass (G1) Ige 1.35 kU/L; Timothy Grass (G6) Ige 1.44 kU/L; Timothy Grass Class 2
[2019-11-26 17:32] LABS: Glucose Point of Care 186 mg/dL (70-110)
[2019-11-26] MEDS: enoxaparin 40 mg/0.4 mL Syringe SUBCUT (18:01)
[2019-11-26 20:50] LABS: Glucose Point of Care 170 mg/dL (70-110)
[2019-11-26] MEDS: levofloxacin-dextrose 5 % 750 MG/150 ML PREMIX 100 MG IV (20:54)
[2019-11-27] VITALS (18 sets, daily range): BP systolic 122–143; BP diastolic 72–102; PULSE 72–90; RESP 13–22; TEMP 36.3–36.9; O2SAT 91–95
[2019-11-27] MEDS: ipratropium-albuterol 3 mL Neb INHALATION ×6 (00:06→20:00)
[2019-11-27 06:42] LABS: Glucose Point of Care 99 mg/dL (70-110)
[2019-11-27] MEDS: budesonide 0.5 mg/2 mL Neb INHALATION ×2 (07:47→20:00)
[2019-11-27] MEDS: predniSONE 20 mg Tablet 40 MG PO (08:46)
[2019-11-27] MEDS: lisinopril 20 mg Tablet PO (08:47)
[2019-11-27] MEDS: aspirin 81 mg EC Tablet PO (08:47)
[2019-11-27] MEDS: amlodipine 10 mg Tablet PO (08:47)
[2019-11-27] MEDS: pantoprazole DR 40 mg Tablet PO (08:47)
[2019-11-27] MEDS: metoprolol tartrate 25 mg Tablet PO ×2 (08:47→18:01)
[2019-11-27 11:50] LABS: Glucose Point of Care 131 mg/dL (70-110)
--- NOTE | 2019-11-27 16:04 | P.PN_ITS ---
Subjective Subjective: Interval history: Patient seen earlier this morning with at bedside, reports sleeping quite well last night, feels about the same as he did yesterday, remains on 2 L NC. Hemodynamically stable. Discussed echo findings. Patient seen again in the afternoon with Dr. Mejia, discussed PFTs results indicating severe airway obstruction, HRCT ordered, eventual need for bron choscopy, continued neb and steroid treatment, and appropriate follow up. Discussed need for continued supplemental oxygen support on d/c as well. Medications: Reviewed: Yes Medication Review Details: Active Medications Generic Name Dose Route Start Last Admin Trade Name Freq PRN Reason Stop Dose Admin Acetaminophen 650 mg 11/22/19 20:57 11/23/19 21:26 Tylenol PO 650 mg Q6H PRN Administration Mild/Mod Pain Or Temp >/= 101 Albuterol/Ipratrop ium 3 ml 11/23/19 00:00 11/27/19 15:00 Duoneb INHALATION 3 ml Q4H.RESPIRATORY S CH Administration Albuterol/Ipratrop ium 3 ml 11/22/19 20:57 Duoneb INHALATION Q2H PRN SHORTNESS OF PAMELA TH Amlodipine Besylat e 10 mg 11/26/19 09:00 11/27/19 08:47 Norvasc PO 10 mg DAILY STEWART Administration Aspirin 81 mg 11/23/19 09:00 11/27/19 08:47 Aspirin Ec PO 81 mg DAILY STEWART Administration Budesonide 0.5 mg 11/23/19 20:00 11/27/19 07:47 Pulmicort INHALATION 0.5 mg BID.RESPIRATORY S CH Administration Dextrose 25 ml 11/22/19 20:57 D50w IVP ONCE PRN hypoglycemia prot ocol Protocol Dextrose 50 ml 11/22/19 20:57 D50w IVP PRN PRN hypoglycemia prot ocol Protocol Enoxaparin Sodium 40 mg 11/23/19 19:00 11/26/19 18:01 Lovenox SUBCUT 40 mg Q24H STEWART Administration Glucagon 1 mg 11/22/19 20:57 Glucagen IM ONCE PRN Adult Acute Hypog lycemia Prot. Protocol Hydralazine HCl 10 mg 11/22/19 20:57 Apresoline IVP Q4H PRN htn Dextrose 500 mls @ 100 mls /hr 11/22/19 20:57 D5w IV ONCE PRN Adult Acute Hypog lycemia Prot Protocol Levofloxacin/Dextr ose 750 mg in 150 mls @ 100 mls/hr 11/22/19 21:15 11/27/19 00:02 Levaquin-D5w IV Infused Q24H STEWART Infusion Protocol Insulin Aspart 0 unit 11/22/19 21:00 11/27/19 11:45 Novolog SUBCUT Not Given WM&BEDTIME STEWART Protocol Lisinopril 20 mg 11/23/19 09:00 11/27/19 08:47 Prinivil PO 20 mg DAILY STEWART Administration Metoprolol Tartrat e 25 mg 11/25/19 18:00 11/27/19 08:47 Lopressor PO 25 mg BID STEWART Administration Ondansetron HCl 4 mg 11/22/19 20:57 Zofran IVP Q6H PRN vomiting, or N/V if npo Pantoprazole Sodiu m 40 mg 11/23/19 09:00 11/27/19 08:47 Protonix PO 40 mg DAILY STEWART Administration Prednisone 40 mg 11/27/19 09:00 11/27/19 08:46 Prednisone PO 40 mg DAILY STEWART Administration Penicillins Allergy (Verified 11/22/19 16:13) Unknown Vitals/I&O/Wt Last Vital Signs Temp 98.5 F 11/27/19 11:57 Pulse 85 11/27/19 15:00 Resp 16 11/27/19 15:00 BP 122/92 11/27/19 15:41 Pulse Ox 95 11/27/19 15:41 11/27/19 11/27/19 11/27/19 06:59 14:59 22:59 Intake Total 550 / 1510 960 / 960 Balance 550 / 1185 960 / 960 Physical Exam Const: COMMON NORMALS: no acute distress and patient oriented x3 GENERAL APPEARANCE: cooperative and comfortable ORIENTATION/CONSCIOUSNESS: Yes awake OTHER: -patient is very tall (6 ft 9 in) HENMT: COMMON NORMALS: normocephalic, atraumatic, hearing grossly normal bilaterally and moist oral mucous membranes HEAD & SCALP: normocephalic and atraumatic Eye: COMMON NORMALS: Equal, round and reactive pupils present, EOMs intact bilaterally and conjunctivae normal CONJUNCTIVA: Yes conjunctivae normal PUPIL: Yes Equal, round and reactive pupils present Neck/C-Spine: COMMON NORMALS: full ROM GENERAL: Yes normal visual inspection and Yes trachea midline Resp: COMMON NORMALS: normal respiratory effort, No retractions and No use of accessory muscles EFFORT & INSPECTION: Yes able to speak in complete sentences, Yes symmetric chest movement and Yes tachypneic AUSCULTATION: no wheezes and diminished lung sounds (air entry improved) diffuse OTHER: -on 2 L NC, saturating in low-mid 90s Cardio: COMMON NORMALS: regular rate, regular rhythm, S1 normal heart sound present, S2 normal heart sound present and No murmurs present (Cardio) RATE: regular rate RHYTHM: regular rhythm HEART SOUNDS: S1 normal heart sound present and S2 normal heart sound present GI: COMMON NORMALS: Normal to inspection, nondistended, normoactive bowel sounds present, Soft to palpation and non-tender INSPECTION: Yes central obesity PALPATION: Yes Soft to palpation Extremity: COMMON NORMALS: normal to inspection, full ROM, no clubbing, cyanosis or edema and no pedal edema Neuro: COMMON NORMALS: patient oriented x3, moves all extremities, no focal motor deficits and no sensory deficits noted Psych: COMMON NORMALS: mental status grossly normal, Normal thought process present, cooperative, normal affect and speech normal SPEECH: Yes normal speech THOUGHT PROCESS: Normal thought process present Skin: COMMON NORMALS: no rashes or lesions noted, no jaundice, no petechiae and no mottling GENERAL SKIN EXAM: no rashes or lesions noted Data : 11/26/19 04:33 11/26/19 04:33 A&P Assessment and plan (1) Acute respiratory failure with hypoxia: -Has prior history of asthma, chronic nicotine use -Has required multiple bouts of antibiotics and steroids which seemed to temporarily improve his symptoms. Will d/c on slow tapering steroid course -Had recent nuclear stress testing which was negative -Noted imaging including CTA which though suboptimal does not show infection or PE -Oxygen requirement appears to be stable, continue to monitor respiratory status closely. Will likely need home oxygen evaluation prior to discharge -consult by pulmonology, Dr. Mejia appreciated -Continue duonebs, steroids, supplemental oxygen as needed, empiric Levaquin -BNP-356; echo: EF=66%, mild LVH; does not clinically appear fluid overloaded. Limited echo with bubble study negative for intracardiac or intrapulmonary shunt; done for evaluation of shunting particularly in light of underlying connective tissue disease -pro calcitonin-0.12 -respiratory viral PCR ordered -noted decrease in leukocytosis, this is likely steroid induced. -bedside spirometry done showing findings consistent with severe airway obstruction -ABG reviewed (7.46/35.4/112), done on 15 L NRB -comprehensive allergy panel with noted sensitivity to multiple allergens; noted IgE elevation (308) -HRCT reviewed with Dr. Mejia, reported as nonspecific bibasilar opacity consistent with atelectasis/pneumonitis, bronchiectasis with mucous plugging, old granulomatous changes -will likely need bronchoscopy Status: Acute (2) Respiratory distress: Status: Resolved (3) Chronic kidney disease, stage 3 (moderate): -has known CKD stage 3; baseline Cr is around 1.3-1.5 -renal function at baseline Status: Chronic (4) Benign essential HTN: -BP controlled, continue to monitor vital signs -continue amlodipine, lisinopril Status: Chronic (5) Hyperglycemia: -A1c-6.0 -Likely reactive and currently on steroids Status: Acute (6) Sinus tachycardia: -Likely secondary to respiratory symptoms -TSH wnl -on low dose metoprolol Status: Resolved Additional A&P Information -Chronic nicotine use, chews tobacco -Obesity: BMI-31 kg/m2 -reportedly dx with Marfan's syndrome or some variant thereof during childhood; no noted aneurysm or dissection on CT scan of chest, no mitral valve abnormality on echo -DVT ppx with Lovenox -GI ppx with PPI -regular diet as tolerated -Dispo: home; anticipate discharge home in 24 hrs -Code status: FULL code Attestations 2 Medical Necessity Statement*: Patient requires hospitalization for continued management of acute hypoxic respiratory failure. Time Spent in Patient Care: 16 - 35 minutes (>than 50% of time spent in counselling and/or direct pt care on unit) . 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
[2019-11-27 16:53] LABS: Glucose Point of Care 110 mg/dL (70-110)
--- NOTE | 2019-11-27 16:59 | CTR_ITS ---
PROCEDURE INFORMATION: Exam: CT Chest Without Contrast Exam date and time: 11/27/2019 5:19 PM Age: 39 years old Clinical indication: Other: Profound spirometric obstruction; Additional info: Profound spirometric obstruction - SOB TECHNIQUE: Imaging protocol: Computed tomography of the chest without contrast. Radiation optimization: All CT scans at this facility use at least one of these dose optimization techniques: automated exposure control; mA and/or kV adjustment per patient size (includes targeted exams where dose is matched to clinical indication); or iterative reconstruction. COMPARISON: CT angio chest PE protcl [id number] 11/23/2019 4:53 PM RADIATION DOSE METRICS: Total DLP: 294.03 mGy-cm FINDINGS: Lungs: Nonspecific bibasilar opacity is present, consistent with atelectasis and/or pneumonitis. There is bronchiectasis with peribronchial thickening and some mucous plugging in the lower lobes and right middle lobe. The trachea and proximal bronchi are widely patent. There is mild pneumonitis with a mild tree-in-bud appearance in the lungs. There is an unchanged calcified granuloma in the right lung. On series 2, there is a 5 mm soft tissue nodule right lower lobe image 19 and a 3 mm nodule right lower lobe image 18 not visualized on the prior exam probably due to some motion artifact. Old granulomatous changes. Pleural space: Unremarkable. No pneumothorax. No pleural effusion. Heart: Unremarkable. No cardiomegaly. No pericardial effusion. Aorta: Unremarkable. No aortic aneurysm. Lymph nodes: Unremarkable. No enlarged lymph nodes. Bones/joints: Unremarkable. No acute fracture. Soft tissues: Unremarkable. Other findings: No foreign body. No end-stage honeycomb fibrosis. CT/CT chest [facility] [id number] IMPRESSION: 1. Nonspecific bibasilar opacity is present, consistent with atelectasis and/or pneumonitis. Bronchiectasis with mucus plugging is noted. 2. Old granulomatous changes. Two soft tissue density pulmonary nodules are noted measuring up to 5 mm in size.For patients at low risk (minimal or absent history of smoking and of other known risk factors), no routine follow-up is indicated. For patients at high risk (history of smoking or of other known risk factors), consider optional CT at 12 months. (Aranza et al., Fleischner Society, 2017) Radiation Dose CTDIVOL = (mGy): DLP = 294.03 (mGy-cm)
[2019-11-27 17:26] LABS: Alternaria Alternata (M6) Ige <0.10 kU/L; Alternaria Class 0; D. Farinae Class 0/1; Dermatophagoides Class 0; Dermatophagoides Farinae (D2) 0.32 kU/L; Dermatophagoides Pteronyssinus <0.10 kU/L; House Dust (Greer) (H1) Ige 0.46 kU/L; House Dust (Hollister- Stier) 0.63 kU/L; House Dust Class 1; Mucor Racemosus Class 0; Penicillium Class 0; Penicillium Notatum (M1) Ige <0.10 kU/L
[2019-11-27] MEDS: montelukast sodium 10 mg Tablet PO (18:01)
[2019-11-27] MEDS: enoxaparin 40 mg/0.4 mL Syringe SUBCUT (18:02)
[2019-11-27 20:25] LABS: Glucose Point of Care 178 mg/dL (70-110)
[2019-11-27] MEDS: levofloxacin-dextrose 5 % 750 MG/150 ML PREMIX 100 MG IV (21:26)
[2019-11-28] VITALS (9 sets, daily range): BP systolic 133–136; BP diastolic 79–94; PULSE 77–85; RESP 14–17; TEMP 36.8; O2SAT 87–95
[2019-11-28] MEDS: ipratropium-albuterol 3 mL Neb INHALATION ×3 (00:20→09:06)
[2019-11-28 06:24] LABS: Glucose Point of Care 91 mg/dL (70-110)
[2019-11-28] MEDS: pantoprazole DR 40 mg Tablet PO (08:07)
[2019-11-28] MEDS: metoprolol tartrate 25 mg Tablet PO (08:07)
[2019-11-28] MEDS: predniSONE 20 mg Tablet 40 MG PO (08:08)
[2019-11-28] MEDS: lisinopril 20 mg Tablet PO (08:08)
[2019-11-28] MEDS: aspirin 81 mg EC Tablet PO (08:08)
[2019-11-28] MEDS: amlodipine 10 mg Tablet PO (08:09)
--- NOTE | 2019-11-28 08:33 | PM.DCS ---
Discharge Providers Date of Admission: 11/22/19 20:07 Date of Discharge: November 28, 2019 Attending Provider at Admission: Fahad Calderon Attending Provider at Discharge: Meme Paez MD Primary Care Provider: Chiquis Daniel DO Diagnoses at Discharge Discharge Diagnosis (1) Acute respiratory failure with hypoxia: Status: Acute Problem details: -Has prior history of asthma, chronic nicotine use -Has required multiple bouts of antibiotics and steroids which seemed to temporarily improve his symptoms. Will d/c on slow tapering steroid course -Had recent nuclear stress testing which was negative -Noted imaging including CTA which though suboptimal does not show infection or PE -Oxygen requirement appears to be stable, continue to monitor respiratory status closely. Will likely need home oxygen evaluation prior to discharge -consult by pulmonology, Dr. Mejia appreciated -Continue duonebs, steroids, supplemental oxygen as needed, empiric Levaquin -BNP-356; echo: EF=66%, mild LVH; does not clinically appear fluid overloaded. Limited echo with bubble study negative for intracardiac or intrapulmonary shunt; done for evaluation of shunting particularly in light of underlying connective tissue disease -pro calcitonin-0.12 -respiratory viral PCR ordered -noted decrease in leukocytosis, this is likely steroid induced. -bedside spirometry done showing findings consistent with severe airway obstruction -ABG reviewed (7.46/35.4/112), done on 15 L NRB -comprehensive allergy panel with noted sensitivity to multiple allergens; noted IgE elevation (308) -HRCT reviewed with Dr. Mejia, reported as nonspecific bibasilar opacity consistent with atelectasis/pneumonitis, bronchiectasis with mucous plugging, old granulomatous changes -will likely need bronchoscopy -based on symptom presentation, was present on admission (2) Respiratory distress: Status: Resolved (3) Chronic kidney disease, stage 3 (moderate): Status: Chronic Problem details: -has known CKD stage 3; baseline Cr is around 1.3-1.5 -renal function at baseline (4) Benign essential HTN: Status: Chronic Problem details: -BP controlled, continue to monitor vital signs -continue amlodipine, lisinopril (5) Hyperglycemia: Status: Acute Problem details: -A1c-6.0 -Likely reactive and currently on steroids (6) Sinus tachycardia: Status: Resolved Problem details: -Likely secondary to respiratory symptoms, neb treatments, steroids -TSH wnl -on low dose metoprolol Other Information Additional DC diagnoses/information: -Chronic nicotine use, chews tobacco -Obesity: BMI-31 kg/m2 -reportedly dx with Marfan's syndrome or some variant thereof during childhood; no noted aneurysm or dissection on CT scan of chest, no mitral valve abnormality on echo Reason for Visit Reason for Visit: Reason For Visit: sob/cough Hospital Course Hospital Course: Patient was admitted to the cardiac stepdown unit and started on empiric antibiotics, nebulizer treatments, IV steroids with close monitoring of his respiratory status given his presenting symptoms and notable acute hypoxic respiratory failure (POA). He has consistently required supplemental oxygen support. There was very low suspicion for COVID-[address] chest findings so this was not done. During the initial part of his admission his oxygen requirement steadily increased to about 5 to 6 L though he is not oxygen dependent at baseline. CTA was grossly negative for PE. He was also noted to have tachycardia likely secondary to hypoxia, steroids and nebulizer treatments. Tachycardia has since resolved. Steadily,oxygen requirement has decreased; however due to initial high requirement and lack of expected improvement on appropriate treatment with relatively unremarkable work-up pulmonology was consulted and Dr. Mejia was gracious enough to evaluate the patient. Dr. Mejia recommended additional evaluation including ABG, bedside spirometry, comprehensive allergy panel, echo with bubble study and high-resolution CT scan. Spirometry indicates significant airflow obstruction, echo with bubble study was not significant for intracardiac or intrapulmonary shunting, allergy panel was positive for sensitivity to multiple allergens, and high-resolution CT scan was relatively unremarkable. He has remained on steroids, nebulizer treatments and empiric Levaquin. Recommendation is to continue slow tapering dose of oral steroids, treatment with ICS-LABA, Spiriva Respimat, Singulair and follow-up in 1 to 2 weeks with pulmonology. Patient may require further evaluation with bronchoscopy and will likely have repeat pulmonary function testing. Home oxygen evaluation was done prior to discharge and he qualifies for 2 L, DME has been arranged. He is cautioned against smoking, exposure to open flame or other flammable material while supplemental oxygen is in use. Cessation of tobacco use is strongly encouraged. Of note he does have underlying chronic kidney disease stage III, current renal function is at baseline for him. He will also require close follow-up with his primary care physician within 1 week. He is advised to seek medical attention immediately should any of his symptoms particularly in terms of his respiratory status worsen. Discharge Summary: -Patient to follow-up with his primary care physician within 1 week -Patient to follow-up with Dr. Mejia in 2 weeks Physical Exam Const: COMMON NORMALS: no acute distress and patient oriented x3 GENERAL APPEARANCE: cooperative and comfortable ORIENTATION/CONSCIOUSNESS: Yes awake OTHER: -patient is very tall (6 ft 9 in) HENMT: COMMON NORMALS: normocephalic, atraumatic, hearing grossly normal bilaterally and moist oral mucous membranes HEAD & SCALP: normocephalic and atraumatic Eye: COMMON NORMALS: Equal, round and reactive pupils present, EOMs intact bilaterally and conjunctivae normal CONJUNCTIVA: Yes conjunctivae normal PUPIL: Yes Equal, round and reactive pupils present Neck/C-Spine: COMMON NORMALS: full ROM GENERAL: Yes normal visual inspection and Yes trachea midline Resp: COMMON NORMALS: normal respiratory effort, No retractions and No use of accessory muscles EFFORT & INSPECTION: Yes able to speak in complete sentences, Yes symmetric chest movement and Yes tachypneic AUSCULTATION: no wheezes and diminished lung sounds (air entry improved) diffuse OTHER: -on 2 L NC, saturating in low-mid 90s Cardio: COMMON NORMALS: regular rate, regular rhythm, S1 normal heart sound present, S2 normal heart sound present and No murmurs present (Cardio) RATE: regular rate RHYTHM: regular rhythm HEART SOUNDS: S1 normal heart sound present and S2 normal heart sound present GI: COMMON NORMALS: Normal to inspection, nondistended, normoactive bowel sounds present, Soft to palpation and non-tender INSPECTION: Yes central obesity PALPATION: Yes Soft to palpation Extremity: COMMON NORMALS: normal to inspection, full ROM, no clubbing, cyanosis or edema and no pedal edema Neuro: COMMON NORMALS: patient oriented x3, moves all extremities, no focal motor deficits and no sensory deficits noted Psych: COMMON NORMALS: mental status grossly normal, Normal thought process present, cooperative, normal affect and speech normal SPEECH: Yes normal speech THOUGHT PROCESS: Normal thought process present Skin: COMMON NORMALS: no rashes or lesions noted, no jaundice, no petechiae and no mottling GENERAL SKIN EXAM: no rashes or lesions noted Discharge Data Data Completed and Pending: Completed Studies During Hospitalization Category Date Time Status CT angio chest PE protcl [id number] Rout ine Cat Scan 11/23/19 14:[address] chest wo con 7 1250 Routine Cat Scan 11/27/19 16:59 Completed XR chest 2V* 7104 6 Stat Exams 11/22/19 17:40 Completed CV echo complete* [id number] Routine Ultrasound 11/24/19 06:00 Completed CV echo lmt wo/w bubble [id number] Routi ne Ultrasound 11/26/19 07:00 Completed Pending at discharge Category Date Time Status Allergy Comprehen sive Profile Urgen t Lab 11/25/19 03:35 Results Respiratory Viral Panel PCR Routine Lab 11/25/19 10:00 Received Labs from last 24 hours 11/28/19 11/27/19 11/27/19 06:11 20:12 16:49 POC Glucose 91 178 110 Alternar. alternat a IgE A. alternata ASM C lass D. farinae IgE Cla ss D. farinae Allrgen IgE D. pteronyssinus C lass D. pteronyssinus I gE M. racemosus Allrg IgE M. racemosus ASM C lass P. notatum Allerg IgE P, notatum ASM Cla ss [place] Ig E Ab [place] M [place] All ergen [place] Ds t ASM 11/27/19 11/25/19 11:36 03:35 POC Glucose 131 Alternar. alternat a IgE <0.10 A. alternata ASM C lass 0 D. farinae IgE Cla ss 0/1 D. farinae Allrgen IgE 0.32 H D. pteronyssinus C lass 0 D. pteronyssinus I gE <0.10 M. racemosus Allrg IgE <0.10 M. racemosus ASM C lass 0 P. notatum Allerg IgE <0.10 P, notatum ASM Cla ss 0 [place] Ig E Ab 0.46 H [place] M 1 [place] Dust All ergen 0.63 H [place] House Ds t ASM 1 Vitals: Treatment forPatient was admitted to the cardiac stepdown unit and started on acute hypoxic respiratory failureLast Vital Signs Temp 98.2 F 11/28/19 07:09 Pulse 82 11/28/19 07:09 Resp 14 11/28/19 07:09 BP 133/94 05/22/20 07:09 Pulse Ox 89 L 11/28/19 07:16 Discharge Plan Discharge Patient Disposition: Home, Self-Care Condition: Stable Prescriptions: New montelukast 10 mg Tablet 10 mg PO QPM 30 Days Qty: 30 RF: 0 Symbicort 160-4.5 mcg/actuation HFA aerosol inhaler 2 inh INHALATION Q12H Qty: 10.2 RF: 0 Spiriva Respimat 1.25 mcg/actuation mist 2 inh INHALATION DAILY Qty: 4 RF: 0 prednisone 10 mg tablet See Rx Instructions .ROUTE .COMPLEX 11 Days Qty: 26 RF: 0 Continued lisinopril 20 mg tablet 20 mg PO DAILY 30 Days Qty: 30 RF: 0 amlodipine 10 mg tablet 10 mg PO DAILY 30 Days Qty: 30 RF: 0 pantoprazole 40 mg tablet,delayed release (DR/EC) 40 mg PO DAILY 30 Days Qty: 30 RF: 0 ProAir HFA 90 mcg/actuation HFA aerosol inhaler 2 inh INHALATION Q4H PRN (Reason: Shortness Of Breath Or Wheezing) Qty: 6.7 RF: 0 Discharge Orders: Discharge Order (Routine); Ordered 11/28/19 Ordered By: Meme Paez Other Ambulatory Orders: DME: Oxygen (Order) Location: None Selected Ordered By: Meme Paez Referrals: Chiquis Daniel DO [Primary Care Provider] - 4-7 days (Post hospital discharge follow up. Treated for acute hypoxic respiratory failure, on tapering dose of steroids with pulmonology follow up. ) Suly Mejia MD [Physician] - 2 weeks (Post hospital discharge follow up.) Discharge Diet: Low Salt Discharge Activity: Increase activity as tolerated and Oxygen as instructed Activity Restrictions/Additional Instructions: -Please note that you are not requiring supplemental oxygen support. Please avoid smoking, close contact with open flames or flammable materials while oxygen is in use Discharge Attestations Time Spent in Discharge Care*: greater than 30 min Specific Discharge Activities: Specific discharge activities: educating patient, educating and/or supporting family/caregiver, discussing with pcp/other providers, discussing with child welfare caseworker/social workers/dc planners, documenting/other paperwork and evaluating patient/reviewing data Status at Discharge: Cognitive status at discharge: cognitively intact, Behavioral status at discharge: cooperative, Functional status at discharge: independent ambulation Overall status at discharge: patient is progressing back to baseline Quality Metrics Clinical Quality Measures During this hospital stay, did patient experience: None Coding Level of Care Code Acute Hooker Machine Tender for Chg Fwd Exam Comprehensive Diagnoses Acute respiratory failure with hypoxia J96.01 Respiratory distress R06.03 Chronic kidney disease, stage 3 (moderate) N18.3 Benign essential HTN I10 Hyperglycemia R73.9 Sinus tachycardia R00.0
[2019-11-28] MEDS: budesonide 0.5 mg/2 mL Neb INHALATION (09:07)
[2019-11-28 10:41] LABS: Adenovirus Not Detected (Not Detected); Human Metapneumovirus Not Detected (Not Detected); Human Parainflu Virus 1 Not Detected (Not Detected); Human Parainflu Virus 2 Not Detected (Not Detected); Human Parainflu Virus 3 Not Detected (Not Detected); Human Rsv A Not Detected (Not Detected); Influenza A Not Detected (Not Detected); Influenza B Not Detected (Not Detected); Rhinovirus/Enterovirus Not Detected (Not Detected)
--- NOTE | 2019-11-28 11:07 | PC.NURSE ---
Discharge instructions given per the physician's orders. Patient verbalized understanding of information and did not have any further questions. Home O2 at bedside. IV removed.
[2019-11-28 16:46] LABS: Aspergillus Fumigatus, Igg Ab, 20.7 mg/L (<=102)
== END 2019-11-28 11:08 | disposition home or self-care (01) | DRG 189 ==
LOC: ER 17:31 → CSU 20:36
PROVIDERS: Emergency Medicine; Hospitalist; Internal Medicine Critical Care Medicine; Admitting Provider Internal Medicine; PCP Family Medicine; Visit Provider Family Medicine
DX: J96.01 Acute respiratory failure with hypoxia (principal); Q87.40 Marfan syndrome, unspecified; J45.901 Unspecified asthma with (acute) exacerbation; N18.3 Chronic kidney disease, stage 3 (moderate); E66.9 Obesity, unspecified; Z68.31 Body mass index [BMI] 31.0-31.9, adult; R00.0 Tachycardia, unspecified; R73.9 Hyperglycemia, unspecified; F17.229 Nicotine dependence, chewing tobacco, with unspecified nicotine-induced disorders; I12.9 Hypertensive chronic kidney disease with stage 1 through stage 4 chronic kidney disease, or unspecified chronic kidney disease; Z86.73 Personal history of transient ischemic attack (TIA), and cerebral infarction without residual deficits; K21.9 Gastro-esophageal reflux disease without esophagitis; I16.0 Hypertensive urgency; J20.8 Acute bronchitis due to other specified organisms
CPT/HCPCS: 12345; 36415; 36416; 36600; 71046; 71250; 71275; 80048; 80053; 82310; 82550; 82785; 82803; 82962; 83036; 83735; 83880; 83970; 84100; 84145; 84443; 85025; 86003; 93005; 93306; 94010; 94640; 94660; 94664; 96372; 96375; 99283; C8924; J1650; J1815; J1956; J2930; J3475; J3535; J7030; J7512; J7626; Q9967

== ENCOUNTER → 2020-06-16 18:58 | Outpatient (BNVA) | payer OTHER, SELFPAY | PROVIDERS: PCP Family Medicine; Visit Provider Internal Medicine Critical Care Medicine | DX: Z20.828 Contact with and (suspected) exposure to other viral communicable diseases (principal) | CPT/HCPCS: 87635 ==

== ENCOUNTER → 2020-06-18 18:41 | Outpatient (BNVA) | payer OTHER, SELFPAY | PROVIDERS: PCP Family Medicine; Visit Provider Internal Medicine Critical Care Medicine | DX: Z20.828 Contact with and (suspected) exposure to other viral communicable diseases (principal) | CPT/HCPCS: 87635 ==

== ENCOUNTER 2020-06-22 09:02 | Outpatient (CLI) | payer OTHER, SELFPAY ==
--- NOTE | 2020-06-22 10:33 | PFTS_ITS ---
Date of Study:06/22/20 Date of Dictation: MECHANICS: Forced vital capacity (FVC) is normal. Forced expiratory volume in one second (FEV1) is normal. FEV1/FVC is normal. FLOW VOLUME LOOP: Mild scooping. LUNG VOLUMES: Total lung capacity (TLC) is increased. Residual volume (RV) is increased. DIFFUSING CAPACITY FOR CARBON MONOXIDE: Normal. INTERPRETATION: The prebronchodilator spirometry is normal. Lung volumes are consistent with air trapping and hyperinflation. This is likely secondary to small airways disease with the patient with known history of asthma. Gas exchange (DLCO) is normal. MTDD
== END 2020-06-22 09:03 | disposition home or self-care (01) ==
PROVIDERS: PCP Family Medicine; Visit Provider Internal Medicine Critical Care Medicine
DX: J45.909 Unspecified asthma, uncomplicated (principal)
CPT/HCPCS: 94010; 94726; 94729

== ENCOUNTER 2020-08-06 13:59 | Emergency (ER) | payer OTHER, SELFPAY ==
[2020-08-06 14:28] VITALS: BP 167/110; PULSE 80; RESP 18; TEMP 37.1; O2SAT 98; BMI 32.1
--- NOTE | 2020-08-06 15:08 | CT_ITS ---
WS: [id number] CT LUMBAR SPINE TECHNIQUE: Noncontrast CT of the lumbar spine with coronal and sagittal reformatted images. CLINICAL INFORMATION: COMPARISON: None. DLP: 2537.[address] scans at [facility] use at least one of these dose optimization techniques: automat ed exposure control; mA and/or kV adjustment per patient size (includes targeted exams where dose is matched to clinical indication); or iterative reconstruction. FINDINGS: Mild lumbar curve convex left. No acute compression fractures. No high-grade central canal stenosis. Disc space heights vertebral body heights relatively well-preserved. L1-L2: Minimal annular bulging. Mild facet arthropathy. Spinal canal foramen are patent. L2-L3: Mild annular bulging with a tiny shallow right pericentral protrusion. Slight narrowing of the right articular recess. Slight encroachment on the right L3 nerve root. Foramen are patent. Moderate facet arthropathy. Minimal annular bulging. Moderate facet arthropathy. Spinal canal and foramen are patent. L3-L4: Normal. L4-L5: Mild annular bulging with narrowing particular recess bilaterally left greater than right. Enc roachment traversing L5 nerve root. Moderate facet arthropathy. Foramen are patent. L5-S1: Tiny shallow central and left pericentral protrusion. Slight contact of the left S1 nerve root . Mild left and no significant right foraminal narrowing. Adrenal glands are normal. Visualized pelvic bony structures: Normal. Paravertebral soft tissues: Normal. CT/CT lumbar spine wo con* [id number] IMPRESSION: 1. Minimal lumbar curve. No acute compression. No high-grade central canal bruna nosis. 2. Tiny shallow right pericentral protrusion L2-3 slightly impinges the right subarticular recess and traversing right L3 nerve root. 3. Mild annular bulging L4-5 with slight crowding of the left subarticular rec ess and traversing left L4 nerve root. Mild central canal stenosis at this leve l. 4. Tiny shallow left pericentral protrusion L5-S1 contacts the traversing left S1 nerve root. Mild left L5-S1 foraminal narrowing. 5. Moderate facet arthropathy L3-L4 and L4-L5.
--- NOTE | 2020-08-06 15:11 | ED_ITS ---
HPI - Back Pain/Injury General: Chief Complaint: Back Pain/Injury Stated Complaint: Got a back adjustment today, can't move legs Time Seen by Provider: 08/06/20 14:43 History of Present Illness: HPI Narrative: 40-year-old male presents emergency room with back pain. He done some heavy lifting yesterday started having back pain went to chiropractor today and after manipulation had worsening back pain with bilateral radicular leg pain he still is ambulatory but it is extremely painful. He can voluntarily move his legs. In the initial nurses note it states I cannot move my legs however he readily admitted he was able to walk and stand and was able to demonstrate that for me in the exam room. He is not had any loss of bowel or bladder control. Has not previously had any back surgery. No recent illness. MD elicited complaint: back pain Pertinent past history: prior back pain Onset (ago): day(s) Timing: constant Severity: severe Similar Symptoms Previously: Yes Quality: sharp and spasming Location: lumbar spine Radiation: left upper leg, right upper leg, left leg below the knee and right leg below the knee Exacerbating factors: movement, sitting upright and walking Relieving factors: supine Associated symptoms: Deny abdominal pain, arthralgias, chills, change in bowel habits, difficulty walking, dysuria, fatigue, fecal incontinence, fever(s), hematuria, myalgias, nausea, numbness, syncope, tingling/numbness/burning, urinary frequency, urinary urgency, vomiting or weakness Treatments prior to arrival: NSAIDS Review of Systems Const: Denies: fever(s), chills or fatigue ENMT: Denies: throat pain, ear or mastoid pain, nasal discharge or nasal congestion Card: Denies: syncope Resp: Denies: dyspnea, productive cough or non-productive cough GI: Denies: abdominal pain, nausea, vomiting, fecal incontinence or change in bowel habits : Denies: dysuria, urinary urgency or hematuria Skin/Breast: Denies: rash or pruritus Neuro: Denies: difficulty walking PFSH ED PFSH: Medical History Benign essential HTN Chronic kidney disease, stage 3 (moderate) -has known CKD stage 3; baseline Cr is around 1.3-1.5 -renal function at baseline CVA (cerebral vascular accident) History of asthma As a child Nicotine dependence, chewing tobacco, with unspecified nicotine-induced disorders Surgical History History of facial surgery History of hand surgery Family History Brother Cancer Grandfather Cancer Grandmother Cancer Family/Other Cancer Other Alcoholic CAD (coronary artery disease) Chronic kidney disease (CKD) Diabetes Stroke Social History Smoking and tobacco status: former smoker Quit status (tobacco): has quit using tobacco Year quit tobacco: 2011 - ciggs x 30 Years Former quit date comment: Chews tobacco daily Second hand smoke exposure: Yes Alcohol intake: current Alcohol intake frequency: 3 or more drinks per day Alcohol type: hard liquor Lives independently: Yes Household members: spouse Marital status: Current occupational status: employed Current occupational exposures/hazards: Yes (Dust, Feed Dust, Chemicals, Animal Dander) History of recent travel: No Current gender identity: Male Physical Exam Const: COMMON NORMALS: no acute distress GENERAL APPEARANCE: cooperative and comfortable ORIENTATION/CONSCIOUSNESS: Yes awake, Yes oriented to person, Yes oriented to place and Yes oriented to time HENMT: COMMON NORMALS: normocephalic, atraumatic and hearing grossly normal bilaterally HEAD & SCALP: normocephalic and atraumatic Eye: COMMON NORMALS: Equal, round and reactive pupils present, EOMs intact bilaterally, conjunctivae normal and no scleral icterus CONJUNCTIVA: Yes conjunctivae normal PUPIL: Yes Equal, round and reactive pupils present Neck/C-Spine: COMMON NORMALS: full ROM, no lymphadenopathy, supple and no JVD Lymph: LYMPHATIC: no lymphadenopathy noted and no lymphedema noted Resp: COMMON NORMALS: normal respiratory effort, No retractions, No use of accessory muscles and clear to auscultation bilaterally AUSCULTATION: clear to auscultation bilaterally Cardio: COMMON NORMALS: no JVD, regular rate, regular rhythm and No murmurs present (Cardio) RATE: regular rate RHYTHM: regular rhythm GI: COMMON NORMALS: Soft to palpation and No hepatosplenomegaly present AUSCULTATION: Yes normoactive bowel sounds PALPATION: Yes Soft to palpation, No Tenderness to palpation present (GI), No Guarding due to palpation present (GI) and Yes No hepatosplenomegaly present Extremity: COMMON NORMALS: normal to inspection, capillary refill normal, no clubbing, cyanosis or edema, no calf tenderness and no pedal edema Neuro: SENSORIUM/ORIENTATION: Yes oriented to person, Yes oriented to place and Yes oriented to time SENSORY EXAM: Yes extremities (normal bilateral in the lower extremities) MOTOR EXAM: 5/5 motor strength present throughout DEEP TENDON REFLEXES: Right patellar reflex intensity grade: 2+, Left patellar reflex intensity grade: 2+, Right ankle reflex intensity grade: 1+ and Left ank le reflex intensity grade: 1+ Skin: COMMON NORMALS: no rashes or lesions noted GENERAL SKIN EXAM: no rashes or lesions noted Course Vital Signs: Vital signs: Vital Signs Temperature 98.7 F 08/06/20 14:28 Pulse Rate 70 08/06/20 16:55 Respiratory Rate 18 08/06/20 16:55 Blood Pressure 137/80 08/06/20 16:55 Pulse Oximetry 94 08/06/20 16:55 MDM - Back Pain/Injury MDM Narrative: Medical decision making narrative: CT of the lumbar spine reviewed discussed with the patient. At this point he does not have any signs of critical neurologic impingement he is able to walk his pain is improved he would prefer to go home we will discharge him home with the below medications. Advised him to follow-up with primary care doctor as soon as he is able for possible referral for advanced imaging if this were to persist. Avoid manipulation at this time. No bending stooping no lifting greater than 10 pounds. Discharge Plan Discharge Patient Disposition: Home Clinical Impression: Lumbar radiculopathy Condition: Stable Prescriptions: New hydrocodone-acetaminophen 5-325 mg tablet 1 tab PO Q6H PRN (Reason: pain) Qty: 25 RF: 0 diclofenac sodium 75 mg tablet,delayed release (DR/EC) 75 mg PO Q12H PRN (Reason: pain) Qty: 20 RF: 0 Medrol (Ollie) 4 mg tablets,dose pack See Rx Instructions .ROUTE .COMPLEX Qty: 21 RF: 0 tizanidine 4 mg capsule 4 mg PO Q8H PRN (Reason: muscle spasticity) Qty: 30 RF: 0 Discontinued ibuprofen [Advil] 200 mg Tablet 1,200 mg PO PRN RF: 0 No Action Symbicort 160-4.5 mcg/actuation HFA aerosol inhaler 2 inh INHALATION Q12H 30 Days Qty: 10.2 RF: 3 Spiriva Respimat 1.25 mcg/actuation mist 2 inh INHALATION DAILY 30 Days Qty: 4 RF: 3 lisinopril 20 mg tablet 20 mg PO BEDTIME RF: 0 amlodipine 10 mg tablet See Rx Instructions .ROUTE .COMPLEX RF: 0 Singulair 10 mg tablet See Rx Instructions .ROUTE .COMPLEX RF: 0 Discharge Orders: Discharge ED (Routine); Ordered 08/06/20 Ordered By: Favio Crespo Referrals: Chiquis Daniel DO [Primary Care Provider] - Coding Level of Care Code ED Resort Keeper for Stella Peck
[2020-08-06] MEDS: dexamethasone 10 mg/mL INJ IM (15:23)
[2020-08-06] MEDS: orphenadrine 30 mg/mL Inj 2 mL 60 MG IM (15:24)
[2020-08-06] MEDS: ketorolac 30 mg/mL INJ IVP (15:24)
[2020-08-06] MEDS: morphine 4 mg/mL SDV 1 mL IVP (15:24)
[2020-08-06 15:35] VITALS: PULSE 70; O2SAT 96
--- NOTE | 2020-08-06 15:52 | PC.NURSE ---
pt to CT scan by stretcher with tech
[2020-08-06 16:55] VITALS: BP 137/80; PULSE 70; RESP 18; O2SAT 94
== END 2020-08-06 17:15 | disposition home or self-care (01) ==
PROVIDERS: Emergency Provider Family Medicine; PCP Family Medicine
DX: M54.16 Radiculopathy, lumbar region (principal); I12.9 Hypertensive chronic kidney disease with stage 1 through stage 4 chronic kidney disease, or unspecified chronic kidney disease; N18.30 Chronic kidney disease, stage 3 unspecified; Z86.73 Personal history of transient ischemic attack (TIA), and cerebral infarction without residual deficits; Z87.891 Personal history of nicotine dependence
CPT/HCPCS: 12345; 72131; 96374; 96375; 99282; 99283; J1100; J1885; J2270; J2360

== ENCOUNTER 2020-08-17 16:01 | Outpatient (RCR) | payer OTHER, SELFPAY | END 2020-09-05 23:59 | disposition home or self-care (01) | LOC: SPT 16:01 | PROVIDERS: PCP Family Medicine; Referring Provider Family Medicine; Visit Provider Family Medicine | DX: M54.16 Radiculopathy, lumbar region (principal) | CPT/HCPCS: 97161 ==

== ENCOUNTER → 2020-09-07 11:56 | Outpatient (BNVA) | payer OTHER, SELFPAY | PROVIDERS: PCP Family Medicine; Visit Provider Family Medicine | DX: M54.16 Radiculopathy, lumbar region (principal); I10 Essential (primary) hypertension; R10.13 Epigastric pain; J45.909 Unspecified asthma, uncomplicated | CPT/HCPCS: 80053; 80061; 82043; 85025 ==

== ENCOUNTER 2020-09-09 17:49 | Inpatient (IN) | payer OTHER, SELFPAY ==
[2020-09-09] VITALS (11 sets, daily range): BP systolic 138–157; BP diastolic 66–89; PULSE 85–117; RESP 18–25; TEMP 36.8–36.9; O2SAT 91–95; BMI 32.1
--- NOTE | 2020-09-09 18:11 | ECG_ITS ---
[facility] Test Date: 2020-09-09 Pat Name: Ty Pan Department: Room: Gender: Male Religious Leader: : 1980 Requested By: Lee Ann Gupta Order Number: [id number] Tyesha MD: Deena Marino M.D. Measurements Intervals Maceo Rate: 100 P: 53 OH: 163 QRS: 57 QRSD: 96 T: 31 QT: 336 QTc: 434 Interpretive Statements SINUS TACHYCARDIA ABNORMAL RHYTHM ECG Compared to ECG 11/23/2019 22:13:16 No significant changes Electronically Signed On 09-09-2020 21:46:47 HEAD HOLDER by Deena Marino M.D. [id number]
--- NOTE | 2020-09-09 18:11 | XR_ITS ---
WS: [id number] Portable AP upright chest, 09/09/2020 Clinical Data: sob Comparison: PA and lateral chest, 11/22/2019. Findings: No nodules, masses or effusions are seen. The heart is normal. The pulmonary vascularity is not increased. No pneumonia or pneumothorax is seen. Monitor leads are on the chest wall. XR/XR chest 1V portable [id number] Impression: Negative chest.
--- NOTE | 2020-09-09 18:12 | W.ED.SOB ---
HPI - SOB/Dyspnea General: Chief Complaint: Shortness of Breath/Dyspnea Stated Complaint: trouble breathing Time Seen by Provider: 09/09/20 18:08 Source: patient Mode of arrival: ambulatory Limitations: no limitations History of Present Illness: HPI Narrative: 40-year-old male who has a history of asthma states that over the last 2 days has had increasing shortness of breath. He has noticeable wheezing. He states that he is on Spiriva at home he does not have a nebulizer. He denies any fever. Has had a slight cough denies any worsening. Denies any vomiting or diarrhea. He states his wheezing and dyspnea does get worse with exertion. Associated symptoms: Deny abdominal pain, chest pain, fever(s), nausea or vomiting Review of Systems Const: Denies: fever(s), chills, body aches or change in appetite Eyes: Denies: blurry vision or eye discomfort ENMT: Denies: throat pain or dental pain Card: Denies: chest pain Resp: Reports: dyspnea, non-productive cough and wheezing GI: Denies: abdominal pain, nausea, vomiting or diarrhea : Denies: dysuria Musc: Denies: neck pain or back pain Skin/Breast: Denies: rash Neuro: Denies: headache(s) Psych: Denies: depression Oscar/Lymph: Denies: easy bruising All/Imm: Denies: urticaria PFSH ED PFSH: Medical History Benign essential HTN Chronic kidney disease, stage 3 (moderate) -has known CKD stage 3; baseline Cr is around 1.3-1.5 -renal function at baseline CVA (cerebral vascular accident) History of asthma As a child Nicotine dependence, chewing tobacco, with unspecified nicotine-induced disorders Surgical History History of facial surgery History of hand surgery Family History Brother Cancer Grandfather Cancer Grandmother Cancer Family/Other Cancer Other Alcoholic CAD (coronary artery disease) Chronic kidney disease (CKD) Diabetes Stroke Social History Smoking and tobacco status: former smoker Quit status (tobacco): has quit using tobacco Year quit tobacco: 2011 - 2 ciggs x 30 Years Former quit date comment: Chews tobacco daily Second hand smoke exposure: Yes Alcohol intake: current Alcohol intake frequency: 3 or more drinks per day Alcohol type: hard liquor Lives independently: Yes Household members: spouse Marital status: Current occupational status: employed Current occupational exposures/hazards: Yes (Dust, Feed Dust, Chemicals, Animal Dander) History of recent travel: No Current gender identity: Male Physical Exam Const: COMMON NORMALS: no acute distress, patient oriented x3 and healthy appearing HENMT: COMMON NORMALS: normocephalic and atraumatic HEAD & SCALP: normocephalic and atraumatic Eye: COMMON NORMALS: Equal, round and reactive pupils present and EOMs intact bilaterally PUPIL: Yes Equal, round and reactive pupils present Neck/C-Spine: COMMON NORMALS: full ROM and supple Chest: COMMONS NORMALS: normal inspection of the chest and normal palpation of entire chest wall Resp: COMMON NORMALS: normal respiratory effort, No retractions and No use of accessory muscles AUSCULTATION: wheezes Cardio: COMMON NORMALS: regular rate, regular rhythm and No murmurs present (Cardio) RATE: regular rate RHYTHM: regular rhythm GI: COMMON NORMALS: Normal to inspection, nondistended, normoactive bowel sounds present, Soft to palpation, non-tender and no masses PALPATION: Yes Soft to palpation Extremity: COMMON NORMALS: normal to inspection and full ROM Neuro: COMMON NORMALS: patient oriented x3, moves all extremities and no focal motor deficits Psych: COMMON NORMALS: mental status grossly normal, Normal thought process present and cooperative THOUGHT PROCESS: Normal thought process present Skin: COMMON NORMALS: no rashes or lesions noted and no wounds GENERAL SKIN EXAM: no rashes or lesions noted Course Vital Signs: Vital signs: Vital Signs Temperature 98.4 F 09/09/20 18:02 Pulse Rate 103 H 09/09/20 20:59 Respiratory Rate 19 H 09/09/20 20:59 Blood Pressure 138/87 09/09/20 18:07 Pulse Oximetry 94 09/09/20 20:59 MDM - SOB/Dyspnea MDM Narrative: Medical decision making narrative: Ty presents here with an asthma exacerbation. He is improved after breathing treatments but still requiring oxygen. I spoke to the hospitalist and will admit for observation. He has no signs of cardiac cause or pulmonary embolism. Lab Data: Labs: Lab Results 09/09/20 09/09/20 Range/Units 18:19 18:19 WBC 12.5 H (4.0-10.0) 10^3/ uL RBC 5.62 H (4.1-5.3) 10^6/u L Hgb 17.5 H (11.7-16.6) g/dL Hct 51.3 (42.0-52.0) % MCV 91.3 (80-94) fL MCH 31.1 (28.0-34.0) pg MCHC 34.1 (30.0-36.0) g/dL RDW 12.8 (12.1-15.1) % Plt Count 312 (130-400) 10^3/c mm MPV 8.9 (7.4-10.4) fL Neut % (Auto) 50.6 % Lymph % (Auto) 25.0 % Cross % (Auto) 6.5 % Eos % (Auto) 16.5 % Baso % (Auto) 0.8 % Neut # (Auto) 6.34 (1.8-7.7) 10^3/u L Lymph # (Auto) 3.1 (0.8-4.8) 10^3/u L Cross # (Auto) 0.8 (0.2-0.9) 10^3/u L Eos # (Auto) 2.1 H (0.0-0.8) 10^3/u L Baso # (Auto) 0.1 (0.0-0.1) 10^3/u L Nucleated RBC % (a uto) 0 % Nucleated RBCs # 0.0 /100WBC Sodium 137 (136-145) mmol/L Potassium 4.5 (3.5-5.1) mmol/L Chloride 102 (98-107) mmol/L Carbon Dioxide 23 (22-29) mmol/L Anion Gap 16.5 (5-19) BUN 9 (6-20) mg/dL Creatinine 1.6 H (0.7-1.2) mg/dL GFR Calculation 47.6 L (90-130) mL/min Glucose 76 (65-115) mg/dL Calculated Osmolal ity 281 L (285-295) mOsm/k g Calcium 9.5 (8.5-10.5) mg/dL Total Bilirubin 0.5 (0.15-1.2) mg/dL AST 32 (0-40) U/L ALT 46 H (0-41) U/L Alkaline Phosphata se 77 (40-130) IU/L NT-Pro-B Natriuret Pep 19 (0-125) pg/mL Total Protein 7.4 (6.6-8.7) g/dL Albumin 4.6 (3.5-5.2) g/dL Globulin 2.8 (1.3-4.6) g/dL Imaging Data^: CXR: Attestation: I personally reviewed and interpreted this imaging study as follows: My impression: No acute abnormality EKG Data^: EKG 1: Attestation: I personally reviewed and interpreted this EKG as follows: EKG Interpretation Date: 09/09/20 EKG interpretation time: 18:35 Interpretation: sinus tach hr [address] or t wave abnormalities qrs 96 qtc 393 Discharge Plan Discharge Patient Disposition: Admitted As Inpatient Clinical Impression: Asthma with exacerbation Condition: Stable Coding Level of Care Code 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
[2020-09-09] MEDS: ipratropium-albuterol 3 mL Neb INHALATION (18:21)
[2020-09-09 18:25] LABS: Basophils # 0.1 10^3/uL (0.0-0.1); Basophils % 0.8 %; Eosinophils # 2.1 10^3/uL (0.0-0.8); Eosinophils % 16.5 %; Hematocrit 51.3 % (42.0-52.0); Hemoglobin 17.5 g/dL (11.7-16.6); Lymphocytes # 3.1 10^3/uL (0.8-4.8); Mean Corpuscular HGB Conc 34.1 g/dL (30.0-36.0); Mean Corpuscular Hemoglobin 31.1 pg (28.0-34.0); Mean Corpuscular Volume 91.3 fL (80-94); Mean Platelet Volume 8.9 fL (7.4-10.4); Monocytes # 0.8 10^3/uL (0.2-0.9); Monocytes % 6.5 %; Neutrophils # 6.34 10^3/uL (1.8-7.7); Neutrophils % 50.6 %; Nucleated Red Blood Cells % 0 %; Platelet Count 312 10^3/cmm (130-400); Red Blood Count 5.62 10^6/uL (4.1-5.3); Red Cell Distribution Width 12.8 % (12.1-15.1); White Blood Count 12.5 10^3/uL (4.0-10.0)
--- NOTE | 2020-09-09 18:38 | PC.NURSE ---
EKG done at 1835 and shown to ER doctor
[2020-09-09 19:02] LABS: Alanine Aminotransferase 46 U/L (0-41); Albumin Level 4.6 g/dL (3.5-5.2); Alkaline Phosphatase 77 IU/L (40-130); Anion Gap 16.5 (5-19); Aspartate Amino Transferase 32 U/L (0-40); Blood Urea Nitrogen 9 mg/dL (6-20); Calcium 9.5 mg/dL (8.5-10.5); Carbon Dioxide 23 mmol/L (22-29); Chloride 102 mmol/L (98-107); Globulin 2.8 g/dL (1.3-4.6); Glomerular Filtration Rate 47.6 mL/min (90-130); Glucose 76 mg/dL (65-115); NT Pro B Type Natriuretic Pept 19 pg/mL (0-125); Osmolality Calculated 281 mOsm/kg (285-295); Potassium 4.5 mmol/L (3.5-5.1); Sodium 137 mmol/L (136-145); Total Bilirubin 0.5 mg/dL (0.15-1.2); Total Protein 7.4 g/dL (6.6-8.7)
--- NOTE | 2020-09-09 22:07 | PC.NURSE ---
Report called to Joie FOREMAN on the Med-surge unit at [id number]
--- NOTE | 2020-09-09 22:09 | PC.NURSE ---
Patient had taken off oxygen via nasal cannula to eat
--- NOTE | 2020-09-09 22:22 | PM.HP ---
Providers/Chief Complaint Admitting Physician: Juan Antonio Cadet Primary Care Provider: Chiquis Daniel DO Chief Complaint: trouble breathing History of Present Illness Ty aPn is a 40 year old male with a history of asthma, hypertension and hypercholesterolemia presented to the emergency department with a complaint of shortness of breath and wheezing and coughing. Patient reports nonproductive. He is not aware of any triggers for his asthma exacerbation. Patient was given breathing treatment and IV steroids in the ED with partial improvement. He was noted to be hypoxic on room air with ambulation. Patient is hospitalized for further management of acute asthma exacerbation. Review of Systems Narrative: He denies any chest pain, he denies any palpitation. Except as documented, all other systems reviewed and negative. Medications/Allergies Home Medications Medication Instructions Recorded Confirmed Last Taken Type budesonide-formoterol HFA 160 2 inh INHALATION Q12H 30 Days 03/22/20 09/09/20 Unknown Rx mcg-4.5 mcg/actuation aerosol #10.2 gm inhaler tiotropium bromide 1.25 2 inh INHALATION DAILY 30 Days #4 03/22/20 09/09/20 Unknown Rx mcg/actuation mist for inhalation gm montelukast [Singulair] 10 mg PO DAILY@0600 08/06/20 09/09/20 Unknown History albuterol sulfate 90 mcg/actuation 2 puff INHALATION QID PRN #8.5 g 08/31/20 09/09/20 09/09/20 Rx aerosol inhaler amlodipine 10 mg PO DAILY@0600 09/09/20 09/09/20 09/09/20 History atorvastatin 40 mg PO BEDTIME@0 09/09/20 09/09/20 Unknown History lisinopril 20 mg PO BEDTIME@0 09/09/20 09/09/20 09/08/20 History pantoprazole 40 mg PO DAILY@0600 09/09/20 09/09/20 09/09/20 History Allergies Allergy/AdvReac Type Severity Reaction Status Date / Time Penicillins Allergy Unknown Verified 09/07/20 11:34 PFSH Acute PFSH: Medical History Benign essential HTN Chronic kidney disease, stage 3 (moderate) -has known CKD stage 3; baseline Cr is around 1.3-1.5 -renal function at baseline CVA (cerebral vascular accident) History of asthma As a child Nicotine dependence, chewing tobacco, with unspecified nicotine-induced disorders Surgical History History of facial surgery History of hand surgery Family History Brother Cancer Grandfather Cancer Grandmother Cancer Family/Other Cancer Other Alcoholic CAD (coronary artery disease) Chronic kidney disease (CKD) Diabetes Stroke Social History Smoking and tobacco status: former smoker Quit status (tobacco): has quit using tobacco Year quit tobacco: 2011 - ciggs x 30 Years Former quit date comment: Chews tobacco daily Second hand smoke exposure: Yes Alcohol intake: current Alcohol intake frequency: 3 or more drinks per day Alcohol type: hard liquor Lives independently: Yes Household members: spouse Marital status: Current occupational status: employed Current occupational exposures/hazards: Yes (Dust, Feed Dust, Chemicals, Animal Dander) History of recent travel: No Current gender identity: Male Vitals/I&O/Wt Last Vital Signs Temp 98.4 F 09/09/20 18:02 Pulse 117 H 09/09/20 22:08 Resp 22 H 09/09/20 22:08 BP 145/80 09/09/20 22:08 Pulse Ox 93 09/09/20 22:08 Weight last 48 hrs Weight 137.892 kg Physical Exam Const: COMMON NORMALS: no acute distress and patient oriented x3 GENERAL APPEARANCE: well developed HENMT: COMMON NORMALS: normocephalic, moist oral mucous membranes and oropharynx normal Eye: COMMON NORMALS: Equal, round and reactive pupils present, EOMs intact bilaterally, conjunctivae normal and no scleral icterus Neck/C-Spine: COMMON NORMALS: supple, no JVD and No carotid bruits Lymph: LYMPHATIC: no lymphadenopathy noted Chest: COMMONS NORMALS: normal inspection of the chest CHEST: Yes Symmetrical chest wall rise Resp: COMMON NORMALS: No use of accessory muscles AUSCULTATION: wheezes expiratory wheezes and throughout and diminished lung sounds bilateral Cardio: COMMON NORMALS: regular rate, regular rhythm, S1 normal heart sound present, S2 normal heart sound present and No murmurs present (Cardio) GI: COMMON NORMALS: Normal to inspection, nondistended, normoactive bowel sounds present, Soft to palpation and non-tender : COMMON NORMALS: Yes no CVA tenderness Back/Pelvis: COMMON NORMALS: no thoracic nor lumbar tenderness and thoraco-lumbar ROM normal Extremity: COMMON NORMALS: normal to inspection, full ROM, no clubbing, cyanosis or edema and no pedal edema Neuro: COMMON NORMALS: patient oriented x3, CN's II-XII intact bilaterally and no focal motor deficits Psych: COMMON NORMALS: mental status grossly normal, Normal thought process present and speech normal Skin: COMMON NORMALS: no rashes or lesions noted, turgor normal and no jaundice Data : 09/10/20 04:48 09/10/20 04:48 A&P Assessment and plan (1) Asthma with exacerbation: Status: Acute (2) Benign essential HTN: Status: Chronic (3) Acute respiratory failure with hypoxia: Status: Acute Additional A&P Information Placed under observation on the medical floor. Treat asthma exacerbation with scheduled DuoNeb, IV Solu-Medrol, albuterol as needed. No indication for antibiotics at this time. Check pro calcitonin. Supplemental oxygen. Continue home antihypertensives. Attestations Medical Necessity Statement*: Patient presenting with acute asthma exacerbation with respiratory failure. He needs to be hospitalized for further treatment. He expected to spend less than 2 midnights. Coding Level of Care Code Acute Rn Clinical Resource for Stella Peck Exam Comprehensive Diagnoses Asthma with exacerbation J45.901 Benign essential HTN I10 Acute respiratory failure with hypoxia J96.01
[2020-09-10] VITALS (17 sets, daily range): BP systolic 124–153; BP diastolic 63–84; PULSE 85–116; RESP 17–24; TEMP 36.3–36.9; O2SAT 92–95
[2020-09-10 05:44] LABS: Basophils % 0.2 %; Eosinophils % 0.4 %; Hemoglobin 16.6 g/dL (11.7-16.6); Lymphocytes # 1.3 10^3/uL (0.8-4.8); Lymphocytes % 12.6 %; Mean Corpuscular HGB Conc 33.2 g/dL (30.0-36.0); Mean Corpuscular Volume 93.3 fL (80-94); Mean Platelet Volume 9.2 fL (7.4-10.4); Monocytes # 0.1 10^3/uL (0.2-0.9); Monocytes % 1.2 %; Neutrophils # 8.83 10^3/uL (1.8-7.7); Neutrophils % 84.7 %; Nucleated Red Blood Cells % 0 %; Platelet Count 310 10^3/cmm (130-400); Red Blood Count 5.36 10^6/uL (4.1-5.3); Red Cell Distribution Width 12.8 % (12.1-15.1); White Blood Count 10.4 10^3/uL (4.0-10.0)
[2020-09-10] MEDS: amlodipine 10 mg Tablet PO (05:50)
[2020-09-10] MEDS: montelukast sodium 10 mg Tablet PO (05:50)
[2020-09-10] MEDS: pantoprazole DR 40 mg Tablet PO (05:50)
[2020-09-10 06:11] LABS: Procalcitonin 0.12 ng/mL (0-0.5)
[2020-09-10 06:17] LABS: Anion Gap 15.7 (5-19); Blood Urea Nitrogen 11 mg/dL (6-20); Calcium 9.5 mg/dL (8.5-10.5); Carbon Dioxide 23 mmol/L (22-29); Chloride 102 mmol/L (98-107); Glomerular Filtration Rate 47.6 mL/min (90-130); Glucose 160 mg/dL (65-115); Magnesium 2.2 mg/dL (1.7-2.3); Osmolality Calculated 285 mOsm/kg (285-295); Phosphorus 2.1 mg/dL (2.5-4.5); Potassium 4.7 mmol/L (3.5-5.1); Sodium 136 mmol/L (136-145); Thyroid Stimulating Hormone 0.96 uIU/mL (0.27-4.20)
[2020-09-10] MEDS: ipratropium-albuterol 3 mL Neb INHALATION ×4 (07:53→20:15)
--- NOTE | 2020-09-10 11:38 | PC.RESP ---
Pt on 2lpm
--- NOTE | 2020-09-10 12:03 | P.PN_ITS ---
Subjective Subjective: Interval history: Patient SOB has improved.Though he still continue to have minimum sob with speaking.Deny any fever,chills,or other complain.He is able to speak complete sentences. Medications: Reviewed: Yes Vitals/I&O/Wt Last Vital Signs Temp 97.8 F 09/10/20 11:17 Pulse 103 H 09/10/20 11:31 Resp 20 H 09/10/20 11:31 BP 133/78 09/10/20 11:17 Pulse Ox 94 09/10/20 11:34 09/09/20 09/10/20 09/10/20 22:59 06:59 14:59 Intake Total 240 / 240 600 / 600 Output Total 730 / 730 Balance -490 / -490 600 / 600 Weight last 48 hrs Weight 137.892 kg Physical Exam Const: COMMON NORMALS: patient oriented x3 HENMT: COMMON NORMALS: normocephalic, atraumatic, hearing grossly normal bilaterally and external ears normal HEAD & SCALP: normocephalic and atraumatic EXTERNAL EAR: Yes external ears normal Eye: COMMON NORMALS: no scleral icterus GENERAL EYE: appearance normal, both eyes and all related structures Resp: COMMON NORMALS: normal respiratory effort, No retractions, No use of accessory muscles and clear to auscultation bilaterally EFFORT & INSPECTION: Yes symmetric chest movement AUSCULTATION: clear to auscultation bilaterally Cardio: COMMON NORMALS: regular rate, regular rhythm, S1 normal heart sound present, S2 normal heart sound present, No gallops present (Cardio), No murmurs present (Cardio), No rub (Cardio) and Peripheral pulses 2+ throughout RATE: regular rate RHYTHM: regular rhythm HEART SOUNDS: S1 normal heart sound present and S2 normal heart sound present PERIPHERAL PULSES: Peripheral pulses 2+ throughout GI: COMMON NORMALS: Normal to inspection, nondistended, normoactive bowel sounds present, Soft to palpation, non-tender, No hepatosplenomegaly present and no masses AUSCULTATION: Yes normoactive bowel sounds PALPATION: Yes Soft to palpation and Yes No hepatosplenomegaly present RECTAL EXAM: Yes deferred Extremity: COMMON NORMALS: no clubbing, cyanosis or edema and no pedal edema Neuro: COMMON NORMALS: patient oriented x3 Data : 09/10/20 04:48 09/10/20 04:48 A&P Assessment and plan (1) Asthma with exacerbation: Status: Acute (2) Benign essential HTN: Status: Chronic (3) Acute respiratory failure with hypoxia: Status: Acute Additional A&P Information Placed under observation on the medical floor. Treat asthma exacerbation with scheduled DuoNeb, IV Solu-Medrol, albuterol as needed. No indication for antibiotics at this time. Check pro calcitonin. Supplemental oxygen. Continue home antihypertensives. Attestations Medical Necessity Statement*: Patient needs to be in hospital for the management of asthma exacerbation. 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
--- NOTE | 2020-09-10 13:36 | PC.CHAP ---
Pastoral Care Encounter/Spiritual Assessment Type of Contact [] Declined handkerchief folder visit [] Patient/Family/Request visit [] Outpatient visit [] Follow-up visit [] Physician referral [] Code/Alert [xx] Routine visit [] Staff referral [] Actively dying [] Patient sleeping [] Family support [] [] Out of room [] Palliative care [] [] Receiving care in room [] Pre-surgical visit [] Trauma [] Long length of stay [] ICU visit [] Other: Relational/Emotional Strength [xx] Patient feels connected with others/family/visitors/staff [] Distress [] Loneliness/isolation [] Abandonment Spirituality of Patient [xx] Person of Jazmin [] Attends Latter Day of their Jazmin [xx] Believes in Prayer [] Reads Bible or Bahai materials [] There are Spiritual issues to be addressed Eviscerator Interventions [xx] Prayer [xx] Active listening [xx] Non-anxious presence [] Spiritual/emotional support [] Crisis/trauma care [] Spiritual counseling [] Bereavement support [] Provided bereavement packet [] Provided Bible/devotional materials [] Provided toy/stuffed animal, coloring book to patient or family member [] Provided Communion [] Anointing/Henry [] Salvation [xx] Completed spiritual assessment [] Other: Impact on Illness or Injury [] Angry [] Fearful [] Anxious [] Often cries [] Exhaustion [] Unable to work [] Unable to attend holiness [] Unable to walk/stand [] Unable to read [] Unable to drive [] Unable to eat/drink [] Unable to sleep [] Unable to be with family [] Patient intubated [] Other: Summary Patient thinks he has asthma/allergy problems that need to be address 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 Time spent with patient 5 minutes
[2020-09-10] MEDS: atorvastatin 40 mg Tablet PO (21:23)
[2020-09-10] MEDS: lisinopril 20 mg Tablet PO (21:24)
[2020-09-11] VITALS (15 sets, daily range): BP systolic 115–138; BP diastolic 60–82; PULSE 81–116; RESP 16–22; TEMP 36.4–36.7; O2SAT 91–94
[2020-09-11] MEDS: montelukast sodium 10 mg Tablet PO (06:25)
[2020-09-11] MEDS: pantoprazole DR 40 mg Tablet PO (06:25)
[2020-09-11] MEDS: amlodipine 10 mg Tablet PO (06:25)
[2020-09-11] MEDS: ipratropium-albuterol 3 mL Neb INHALATION ×4 (07:41→19:19)
--- NOTE | 2020-09-11 13:36 | P.PN_ITS ---
Subjective Subjective: Interval history: Patient SOB has improved.Though he still continue to have minimum sob with speaking.Deny any fever,chills,or other complain.He is able to speak complete sentences. Medications: Reviewed: Yes Vitals/I&O/Wt Last Vital Signs Temp 98.0 F 09/11/20 12:00 Pulse 106 H 09/11/20 12:00 Resp 18 09/11/20 12:00 BP 137/82 09/11/20 12:00 Pulse Ox 94 09/11/20 12:00 09/10/20 09/11/20 09/11/20 22:59 06:59 14:59 Intake Total 480 / 1320 840 / 840 Balance 480 / 1320 840 / 840 Weight last 48 hrs Weight 137.892 kg Physical Exam Const: COMMON NORMALS: patient oriented x3 HENMT: COMMON NORMALS: normocephalic, atraumatic, hearing grossly normal bilaterally and external ears normal HEAD & SCALP: normocephalic and atraumatic EXTERNAL EAR: Yes external ears normal Eye: COMMON NORMALS: no scleral icterus GENERAL EYE: appearance normal, both eyes and all related structures Resp: COMMON NORMALS: normal respiratory effort, No retractions, No use of accessory muscles and clear to auscultation bilaterally EFFORT & INSPECTION: Yes symmetric chest movement AUSCULTATION: clear to auscultation bilaterally Cardio: COMMON NORMALS: regular rate, regular rhythm, S1 normal heart sound present, S2 normal heart sound present, No gallops present (Cardio), No murmurs present (Cardio), No rub (Cardio) and Peripheral pulses 2+ throughout RATE: regular rate RHYTHM: regular rhythm HEART SOUNDS: S1 normal heart sound present and S2 normal heart sound present PERIPHERAL PULSES: Peripheral pulse s 2+ throughout GI: COMMON NORMALS: Normal to inspection, nondistended, normoactive bowel sounds present, Soft to palpation, non-tender, No hepatosplenomegaly present and no masses AUSCULTATION: Yes normoactive bowel sounds PALPATION: Yes Soft to palpation and Yes No hepatosplenomegaly present RECTAL EXAM: Yes deferred Extremity: COMMON NORMALS: no clubbing, cyanosis or edema and no pedal edema Neuro: COMMON NORMALS: patient oriented x3 Data : 09/10/20 04:48 09/10/20 04:48 A&P Assessment and plan (1) Asthma with exacerbation: Status: Acute (2) Benign essential HTN: Status: Chronic (3) Acute respiratory failure with hypoxia: Status: Acute Additional A&P Information Placed under observation on the medical floor. Treat asthma exacerbation with scheduled DuoNeb, IV Solu-Medrol, albuterol as needed. No indication for antibiotics at this time. Check pro calcitonin. Supplemental oxygen. Continue home antihypertensives. Attestations Medical Necessity Statement*: Patient needs to be in hospital for the management of asthma exacerbation. Coding Level of Care Code Acute Briar Shop Supervisor for [facility] Fwd Exam Detailed Diagnoses Asthma with exacerbation J45.901 Benign essential HTN I10 Acute respiratory failure with hypoxia J96.01
[2020-09-11] MEDS: atorvastatin 40 mg Tablet PO (21:25)
[2020-09-11] MEDS: lisinopril 20 mg Tablet PO (21:26)
[2020-09-12] VITALS (12 sets, daily range): BP systolic 108–129; BP diastolic 49–69; PULSE 84–103; RESP 16–20; TEMP 36.5–36.9; O2SAT 89–93
[2020-09-12] MEDS: montelukast sodium 10 mg Tablet PO (06:05)
[2020-09-12] MEDS: pantoprazole DR 40 mg Tablet PO (06:05)
[2020-09-12] MEDS: amlodipine 10 mg Tablet PO (06:05)
[2020-09-12] MEDS: ipratropium-albuterol 3 mL Neb INHALATION ×3 (07:35→15:02)
--- NOTE | 2020-09-12 12:50 | P.DS_ITS ---
Discharge Providers Date of Admission: 09/11/20 19:06 Date of Discharge: September 12, 2020 Attending Provider at Admission: Juan Antonio Cadet Attending Provider at Discharge: Erich Galeana MD Primary Care Provider: Chiquis Daniel DO Diagnoses at Discharge Discharge Diagnosis (1) Asthma with exacerbation: Permanent problem details: Resolved (2) Benign essential HTN: (3) Acute respiratory failure with hypoxia: Permanent problem details: Resolved Reason for Visit Reason for Visit: trouble breathing Hospital Course Hospital Course 40 year old male with a history of asthma, hypertension and hypercholesterolemia presented to the emergency department with a complaint of shortness of breath and wheezing and coughing. Patient reports nonproductive.He was not aware of any triggers for his asthma exacerbation.He was admitted for the management of Ac asthma exacerbation.He received I.V steroids as well as duo nebs while inpatient.He responded well to the above treatment and was discharged on oral prednisone 40 mg daily for 5 days, and was asked to continue with his inhalers and avoid any possible triggers for the asthma exacerbation.He has an appointment with on Sunday. Physical Exam Const: COMMON NORMALS: patient oriented x3 HENMT: COMMON NORMALS: normocephalic, atraumatic, hearing grossly normal bilaterally and external ears normal HEAD & SCALP: normocephalic and atraumatic EXTERNAL EAR: Yes external ears normal Eye: COMMON NORMALS: no scleral icterus GENERAL EYE: appearance normal, both eyes and all related structures Resp: COMMON NORMALS: normal respiratory effort, No retractions and No use of accessory muscles EFFORT & INSPECTION: Yes symmetric chest movement OTHER: Minimal expiratory wheezing present in both lungs alofnso Cardio: COMMON NORMALS: regular rate, regular rhythm, S1 normal heart sound present, S2 normal heart sound present, No gallops present (Cardio), No murmurs present (Cardio), No rub (Cardio) and Peripheral pulses 2+ throughout RATE: regular rate RHYTHM: regular rhythm HEART SOUNDS: S1 normal heart sound present and S2 normal heart sound present PERIPHERAL PULSES: Peripheral pulses 2+ throughout GI: COMMON NORMALS: Normal to inspection, nondistended, normoactive bowel sounds present, Soft to palpation, non-tender, No hepatosplenomegaly present and no masses AUSCULTATION: Yes normoactive bowel sounds PALPATION: Yes Soft to palpation and Yes No hepatosplenomegaly present RECTAL EXAM: Yes deferred Extremity: COMMON NORMALS: no clubbing, cyanosis or edema and no pedal edema Neuro: COMMON NORMALS: patient oriented x3 Discharge Data Data Completed and Pending: Completed Studies During Hospitalization Category Date Time Status XR chest 1V quintin ble [id number] Urgent Exams 09/09/20 18:11 Completed Vitals: Last Vital Signs Temp 97.7 F 09/12/20 12:00 Pulse 103 H 09/12/20 12:00 Resp 18 09/12/20 12:00 BP 123/67 09/12/20 12:00 Pulse Ox 92 09/12/20 12:00 Discharge Plan Discharge Patient Disposition: Home Condition: Stable Prescriptions: New prednisone 50 mg tablet 40 mg PO DAILY 5 Days RF: 0 Continued Symbicort 160-4.5 mcg/actuation HFA aerosol inhaler 2 inh INHALATION Q12H 30 Days Qty: 10.2 RF: 3 Spiriva Respimat 1.25 mcg/actuation mist 2 inh INHALATION DAILY 30 Days Qty: 4 RF: 3 albuterol sulfate [ProAir HFA] 90 mcg/actuation HFA aerosol inhaler 2 puff inhalation QID PRN (Reason: shortness of breath or wheezing) Qty: 8.5 RF: 2 montelukast [Singulair] 10 mg tablet 10 mg PO DAILY@0600 RF: 0 atorvastatin 40 mg tablet 40 mg PO BEDTIME@2200 RF: 0 lisinopril 20 mg tablet 20 mg PO BEDTIME@2200 RF: 0 amlodipine 10 mg tablet 10 mg PO DAILY@0600 RF: 0 pantoprazole 40 mg tablet,delayed release (DR/EC) 40 mg PO DAILY@0600 RF: 0 Discharge Orders: Discharge Order (Routine); Ordered 09/12/20 Ordered By: Erich Galeana Referrals: Chiquis Daniel DO [Primary Care Provider] - (Please call Sunday to schedule a follow up appointment.) Suly Mejia MD [Physician] - 1 week (Please call Sunday to make a follow up appointment.) Discharge Diet: Low Salt Discharge Activity: Resume usual activity Patient Instructions: Asthma Exacerbation - Adult, Prednisone (By mouth), Asthma (GEN) Discharge Attestations Time Spent in Discharge Care*: less than 30 min Specific Discharge Activities: educating patient, educating and/or supporting family/caregiver, discussing with case management associate/social workers/dc planners, documenting/other paperwork and evaluating patient/reviewing data Status at Discharge: Cognitive status at discharge: cognitively intact , Behavioral status at discharge: cooperative , Quality Metrics Clinical Quality Measures During this hospital stay, did patient experience: None Coding Level of Care Code Acute Autotransfusionist for Katieg Fwd Diagnoses Asthma with exacerbation J45.901 Benign essential HTN I10 Acute respiratory failure with hypoxia J96.01
== END 2020-09-12 17:34 | disposition home or self-care (01) | DRG 202 ==
LOC: ER 21:09 → MEDSURG 22:19
PROVIDERS: Admitting Provider Internal Medicine; Emergency Provider Emergency Medicine; PCP Family Medicine; Visit Provider Internal Medicine
DX: J45.901 Unspecified asthma with (acute) exacerbation (principal); J96.01 Acute respiratory failure with hypoxia; E78.00 Pure hypercholesterolemia, unspecified; I12.9 Hypertensive chronic kidney disease with stage 1 through stage 4 chronic kidney disease, or unspecified chronic kidney disease; N18.30 Chronic kidney disease, stage 3 unspecified; Z86.73 Personal history of transient ischemic attack (TIA), and cerebral infarction without residual deficits; F17.220 Nicotine dependence, chewing tobacco, uncomplicated; Z79.51 Long term (current) use of inhaled steroids
CPT/HCPCS: 36415; 71045; 80048; 80053; 83735; 83880; 84100; 84145; 84443; 85025; 93005; 94640; 94664; 99285; G0378; J2930; J7611

== ENCOUNTER 2021-04-22 16:21 | Emergency (ER) | payer OTHER, SELFPAY ==
[2021-04-22] VITALS (8 sets, daily range): BP systolic 152–168; BP diastolic 94–119; PULSE 72–98; RESP 16–20; TEMP 36.8; O2SAT 96–98; BMI 32.1
--- NOTE | 2021-04-22 17:35 | XRR_ITS ---
PROCEDURE INFORMATION: Exam: XR Chest Exam date and time: 04/22/2021 5:35 PM Age: 41 years old Clinical indication: Chest wall pain; Additional info: Chest pain TECHNIQUE: Imaging protocol: XR of the chest. Views: 2 views. COMPARISON: CR XR chest 1V portable [id number] 09/09/2020 6:58 PM FINDINGS: Lungs: Unremarkable. No consolidation. Pleural spaces: Unremarkable. No pleural effusion. No pneumothorax. Heart/Mediastinum: Unremarkable. No cardiomegaly. Bones/joints: Unremarkable. XR/XR chest 2V* [id number] IMPRESSION: No acute findings. Radiation Dose CTDIVOL = (mGy): DLP = (mGy-cm)
[2021-04-22 18:06] LABS: Basophils # 0.1 10^3/uL (0.0-0.1); Basophils % 0.8 %; Eosinophils # 1.9 10^3/uL (0.0-0.8); Eosinophils % 20.2 %; Hematocrit 50.3 % (42.0-52.0); Hemoglobin 17.3 g/dL (11.7-16.6); Lymphocytes # 2.6 10^3/uL (0.8-4.8); Mean Corpuscular HGB Conc 34.4 g/dL (30.0-36.0); Mean Platelet Volume 9.5 fL (7.4-10.4); Monocytes # 0.6 10^3/uL (0.2-0.9); Monocytes % 6.7 %; Neutrophils # 4.14 10^3/uL (1.8-7.7); Nucleated Red Blood Cells % 0 %; Platelet Count 254 10^3/cmm (130-400); Red Blood Count 5.41 10^6/uL (4.1-5.3); Red Cell Distribution Width 13.2 % (12.1-15.1); White Blood Count 9.4 10^3/uL (4.0-10.0)
[2021-04-22 18:19] LABS: Alanine Aminotransferase 51 U/L (0-41); Albumin Level 4.4 g/dL (3.5-5.2); Alkaline Phosphatase 77 IU/L (40-130); Anion Gap 13.3 (5-19); Aspartate Amino Transferase 37 U/L (0-40); Blood Urea Nitrogen 7 mg/dL (6-20); Calcium 9.4 mg/dL (8.5-10.5); Carbon Dioxide 27 mmol/L (22-29); Chloride 103 mmol/L (98-107); Globulin 2.5 g/dL (1.3-4.6); Glomerular Filtration Rate 73.1 mL/min (90-130); Glucose 84 mg/dL (65-115); Osmolality Calculated 285 mOsm/kg (285-295); Potassium 4.3 mmol/L (3.5-5.1); Sodium 139 mmol/L (136-145); Total Bilirubin 0.4 mg/dL (0.15-1.2); Total Protein 6.9 g/dL (6.6-8.7)
[2021-04-22 18:20] LABS: Troponin T (5th) Once 6 ng/L (0-15)
--- NOTE | 2021-04-22 19:02 | ED_ITS ---
HPI - Chest Pain General: Chief Complaint: Chest Pain Stated Complaint: CHEST PAINS SOB Time Seen by Provider: 04/22/21 19:02 History of Present Illness: HPI narrative: 41-year-old male patient comes in today for complaints of increased shortness of breath for the last 2 weeks. Patient has been without his routine medications for hypertension, asthma, and high cholesterol. Associated symptoms: Reports dyspnea Review of Systems General: Reports: 10 or more systems reviewed and unremarkable except in HPI and below Resp: Reports: dyspnea PFSH ED PFSH: Medical History Acute respiratory failure with hypoxia Resolved Asthma with exacerbation Resolved Benign essential HTN Chronic kidney disease, stage 3 (moderate) -has known CKD stage 3; baseline Cr is around 1.3-1.5 -renal function at baseline CVA (cerebral vascular accident) History of asthma As a child Nicotine dependence, chewing tobacco, with unspecified nicotine-induced disorders Surgical History History of facial surgery History of hand surgery Family History Brother Cancer Grandfather Cancer Grandmother Cancer Family/Other Cancer Other Alcoholic CAD (coronary artery disease) Chronic kidney disease (CKD) Diabetes Stroke Social History Smoking and tobacco status: former smoker Quit status (tobacco): has quit using tobacco Year quit tobacco: 2011 - ciggs x 30 Years Former quit date comment: Chews tobacco daily Second hand smoke exposure: Yes Alcohol intake: current Alcohol intake frequency: 3 or more drinks per day Alcohol type: hard liquor Lives independently: Yes Household members: spouse Marital status: Current occupational status: employed Current occupational exposures/hazards: Yes (Dust, Feed Dust, Chemicals, Animal Dander) History of recent travel: No Current gender identity: Male Physical Exam Const: COMMON NORMALS: no acute distress and patient oriented x3 GENERAL APPEARANCE: cooperative HENMT: COMMON NORMALS: normocephalic and Normal external nose present HEAD & SCALP: normal to inspection and normocephalic NOSE: Normal external nose present MOUTH: Normal oral and palatal mucosa present Eye: GENERAL EYE: appearance normal, both eyes and all related structures Neck/C-Spine: COMMON NORMALS: full ROM Lymph: LYMPHATIC: no lymphadenopathy noted Chest: COMMONS NORMALS: normal inspection of the chest Resp: COMMON NORMALS: normal respiratory effort EFFORT & INSPECTION: Yes able to speak in complete sentences AUSCULTATION: wheezes and diminished lung sounds Cardio: COMMON NORMALS: regular rate and regular rhythm RATE: regular rate RHYTHM: regular rhythm GI: COMMON NORMALS: non-tender Back/Pelvis: COMMON NORMALS: thoracic and lumbar spine normal to inspection Extremity: COMMON NORMALS: normal to inspection Neuro: COMMON NORMALS: patient oriented x3 and moves all extremities Psych: COMMON NORMALS: mental status grossly normal and cooperative Skin: COMMON NORMALS: no rashes or lesions noted GENERAL SKIN EXAM: no rashes or lesions noted Course ED course: 2114, patient improvement in aeration throughout lung alfonso and is reported improvement in chest discomfort with respirations after treatments of albuterol and ipratropium. Patient will be discharged with an albuterol inhaler. Patient was given 20 mg of prednisone p.o., along with 125 mg of Solu-Medrol. Vital Signs: Vital signs: Vital Signs Temperature 98.2 F 04/22/21 16:38 Pulse Rate 84 04/22/21 20:44 Respiratory Rate 17 04/22/21 20:39 Blood Pressure 161/119 04/22/21 19:13 Pulse Oximetry 96 04/22/21 20:39 MDM - Chest Pain MDM Narrative: Medical decision making narrative: 41-year-old male patient comes in today with increased shortness of breath. Patient reports being without his routine medications for a while . On exam patient has some decreased lung sounds. She does have some increase in wheezing throughout lung alfonso. Vital signs were normal. Except for some mild elevation in blood pressure of systolic 160. Differential diagnosis includes not limited to pneumonia, ACS, COPD, asthma, CHF. Laboratory values were unremarkable. Chest x-ray showed no signs of pneumonia or CHF. Believe patient probably has exacerbation of his asthma since he has been not using of his inhalers for the last few weeks. Patient reports poor follow-up with primary care due to inability to get in for office visit. We gave patient in the emergency room 125 of Solu-Medrol and a albuterol ipratropium treatment. Patient thinks that he has prescription refills at the pharmacy. I did go ahead and write for patient Symbicort, albuterol, and amlodipine along with a burst of prednisone to cover it until he can get into his primary care and to make sure he has these prescriptions going forward. If he already has prescription refills at the pharmacy he can refill them there. Patient agreed to plan. Lab Data: Labs: Lab Results 04/22/21 04/22/21 04/22/21 17:33 17:33 17:33 WBC 9.4 10^3/uL 10^3/ uL (4.0-10.0) RBC 5.41 10^6/uL H 10 ^6/uL (4.1-5.3) Hgb 17.3 g/dL H g/dL (11.7-16.6) Hct 50.3 % % (42.0-52.0) MCV 93.0 fl fl (80-94) MCH 32.0 pg pg (28.0-34.0) MCHC 34.4 g/dL g/dL (30.0-36.0) RDW 13.2 % % (12.1-15.1) Plt Count 254 10^3/cmm 10^3 /cmm (130-400) MPV 9.5 fL fL (7.4-10.4) Neut % (Auto) 44.0 % % Lymph % (Auto) 28.0 % % Wheeler % (Auto) 6.7 % % Eos % (Auto) 20.2 % % Baso % (Auto) 0.8 % % Neut # (Auto) 4.14 10^3/uL 10^3 /uL (1.8-7.7) Lymph # (Auto) 2.6 10^3/uL 10^3/ uL (0.8-4.8) Wheeler # (Auto) 0.6 10^3/uL 10^3/ uL (0.2-0.9) Eos # (Auto) 1.9 10^3/uL H 10^ 3/uL (0.0-0.8) Baso # (Auto) 0.1 10^3/uL 10^3/ uL (0.0-0.1) Nucleated RBC % (a uto) 0 % % Nucleated RBCs # 0.0 /100WBC /100W BC Sodium 139 mmol/L mmol/L (136-145) Potassium 4.3 mmol/L mmol/L (3.5-5.1) Chloride 103 mmol/L mmol/L (98-107) Carbon Dioxide 27 mmol/L mmol/L (22-29) Anion Gap 13.3 (5-19) BUN 7 mg/dL mg/dL (6-20) Creatinine 1.1 mg/dL mg/dL (0.7-1.2) GFR Calculation 73.1 mL/min L mL/ min (90-130) Glucose 84 mg/dL mg/dL (65-115) Calculated Osmolal ity 285 mOsm/kg mOsm/ kg (285-295) Calcium 9.4 mg/dL mg/dL (8.5-10.5) Total Bilirubin 0.4 mg/dL mg/dL (0.15-1.2) AST 37 U/L U/L (0-40) ALT 51 U/L H U/L (0-41) Alkaline Phosphata se 77 IU/L IU/L (40-130) Troponin T Gen 5 n g/L 6 ng/L ng/L (0-15) Total Protein 6.9 g/dL g/dL (6.6-8.7) Albumin 4.4 g/dL g/dL (3.5-5.2) Globulin 2.5 g/dL g/dL (1.3-4.6) Discharge Plan Discharge Patient Disposition: Home Clinical Impression: Exacerbation of asthma Qualifiers: Asthma severity: unspecified severity Asthma persistence: persistent Qualified Code(s): J45.901 - Unspecified asthma with (acute) exacerbation Condition: Stable Prescriptions: New prednisone 20 mg tablet 20 mg PO BID 5 Days Qty: 10 RF: 0 Continued amlodipine 10 mg tablet 10 mg PO DAILY@0600 Qty: 30 RF: 0 ProAir HFA 90 mcg/actuation HFA aerosol inhaler 2 puff inhalation QID PRN (Reason: shortness of breath or wheezing) Qty: 8.5 RF: 1 Symbicort 160-4.5 mcg/actuation HFA aerosol inhaler 2 inh INHALATION Q12H 30 Days Qty: 10.2 RF: 1 No Action prednisone 10 mg tablet 10 mg PO .COMPLEX Qty: 18 RF: 0 Spiriva Respimat 1.25 mcg/actuation mist 2 inh INHALATION DAILY 30 Days Qty: 4 RF: 0 montelukast [Singulair] 10 mg tablet 10 mg PO DAILY@0600 RF: 0 atorvastatin 40 mg tablet 40 mg PO BEDTIME@2200 RF: 0 lisinopril 20 mg tablet 20 mg PO BEDTIME@2200 RF: 0 pantoprazole 40 mg tablet,delayed release (DR/EC) 40 mg PO DAILY@0600 RF: 0 Discharge Orders: Discharge ED (Routine); Ordered 04/22/21 Ordered By: Hayden Moore Referrals: Chiquis Daniel DO [Primary Care Provider] - Discharge Diet: Usual diet Discharge Activity: Increase activity as tolerated Patient Instructions: Asthma (ED), Opioid Safety Activity Restrictions/Additional Instructions: Continue routine medications as directed. Take prednisone 20 mg twice a day for the next 5 days. Then return to your normal dose of prednisone. Follow-up with primary care in 1 week. Return to the ER for worsening symptoms or new concerns. Coding Level of Care Code ED Peripheral Equipment Operator for Stella Fweligio Exam Comprehensive
[2021-04-22] MEDS: ipratropium-albuterol 3 mL Neb INHALATION (19:43)
[2021-04-22] MEDS: predniSONE 20 mg Tablet PO (20:07)
[2021-04-22] MEDS: albuterol 8 gm MDI 2 PUFF INHALATION (20:43)
[2021-04-22] MEDS: amlodipine 10 mg Tablet PO (21:19)
--- NOTE | 2021-04-28 12:31 | DCPLANNER ---
hotel general manager had message to speak with patient about getting established with a primary care physician. hotel general manager called phone number [phone], unable to speak with patient at this time, a voicemail was left for patient to return renal case manager phone call.
== END 2021-04-22 21:25 | disposition home or self-care (01) ==
PROVIDERS: Emergency Medicine; Emergency Provider Nurse Practitioner Family; PCP Family Medicine
DX: J45.901 Unspecified asthma with (acute) exacerbation (principal); I12.9 Hypertensive chronic kidney disease with stage 1 through stage 4 chronic kidney disease, or unspecified chronic kidney disease; N18.30 Chronic kidney disease, stage 3 unspecified; Z86.73 Personal history of transient ischemic attack (TIA), and cerebral infarction without residual deficits; Z87.891 Personal history of nicotine dependence
CPT/HCPCS: 71046; 80053; 84484; 85025; 94640; 96374; 99284; J2930; J3535; J7512; J7611

== ENCOUNTER → 2021-07-19 13:16 | Outpatient (BNVA) | payer OTHER, SELFPAY | PROVIDERS: PCP Family Medicine; Visit Provider Family Medicine | DX: I10 Essential (primary) hypertension (principal) | CPT/HCPCS: 80048 ==

== ENCOUNTER 2022-02-28 15:13 | Outpatient (CLI) | payer OTHER, SELFPAY ==
--- NOTE | 2022-02-28 15:15 | USCV_ITS ---
MargaritoTy dimas Age: 42 Gender: M : 1980 Exam Date: 02/28/2022 15:31 Ordering Phys: Davy Martinez M.D ([email or web address]) Technologist: JIMENA Exam Location: [facility] – [place] Indication: SOB BP: 190 / 100 HR: 72 Rhythm: Sinus Technical Quality: Good MEASUREMENTS (Male / Female) Normal Values 2D ECHO LV Diastolic Diameter PLAX 5.3 cm 4.2 - 5.9 / 3.9 - 5.3 cm LV Systolic Diameter PLAX 2.7 cm IVS Diastolic Thickness 1.1 cm 0.6 - 1.0 / 0.6 - 0.9 cm IVS Systolic Thickness 1.7 cm LVPW Diastolic Thickness 0.7 cm 0.6 - 1.0 / 0.6 - 0.9 cm LVPW Systolic Thickness 1.8 cm LVOT Diameter 2.1 cm LV Ejection Fraction 2D Teich 80.3 % LV Ejection Fraction MOD 2C 69.6 % LV Ejection Fraction 2C AL 70.2 % LA Diameter 3.4 cm LA Width 2.8 cm LA Height 5.1 cm RA Width 3.2 cm RA Height 4.0 cm Aorta at Sinotubular Diameter 4.1 cm IVC Diameter 2.1 cm M-MODE MV E Point Septal Separation 0.7 cm DOPPLER AV Peak Velocity 107.0 cm/s LVOT Peak Velocity 100.0 cm/s AV Area Cont Eq vti 3.3 cm squared AV Area Cont Eq pk 3.2 cm squared MV Peak Velocity 70.0 cm/s MV Area PHT 2.8 cm squared Mitral E to A Ratio 0.6 MV E' Velocity 25.5 cm/s Mitral E to MV E' Ratio 4.6 Mitral E to LV E' Lateral Ratio 3.6 Mitral E to LV E' Septal Ratio 6.2 TR Peak Velocity 56.0 cm/s TR Peak Gradient 1.3 mmHg Right Atrial Pressure 3.0 mmHg Pulmonary Artery Systolic Pressu 4.3 mmHg PV Peak Velocity 80.0 cm/s RV Acceleration Time 0.1 s RV Ejection Time 0.3 s RV AcT/ET 0.4 FINDINGS Left Ventricle LV is normal in size. LV systolic function is normal with EF of 55-60%. No regional wall motion abnormalities. Grade 1 diastolic dysfunction Right Ventricle Normal in size and function Right Atrium Normal in size Left Atrium Normal in size Mitral Valve Structurally normal mitral valve. Trace mitral regurgitation Aortic Valve Aortic valve is grossly normal. No significant stenosis or regurgitation. Tricuspid Valve Trace tricuspid regurgitation. Insufficient TR jet to calculate RVSP Pulmonic Valve Mild pulmonic regurgitation Pericardium Normal Aorta Mildly dilated IVC CONCLUSIONS LV systolic function is normal with EF of 55-60% Grade 1 diastolic dysfunction Trace mitral regurgitation Trace tricuspid regurgitation Mild pulmonic regurgitation Aorta is mildly dilated Compared to prior echocardiogram from 11/26/2019, no significant changes are noted Davy Martinez MD (Electronically Signed) Final Date: 15 March 2022 20:47 S
== END 2022-02-28 15:14 | disposition home or self-care (01) ==
LOC: RAD 15:13
PROVIDERS: Visit Provider Internal Medicine
DX: R06.02 Shortness of breath (principal); I08.1 Rheumatic disorders of both mitral and tricuspid valves
CPT/HCPCS: 93306

== ENCOUNTER 2022-06-08 14:00 | Emergency (ER) | payer OTHER, SELFPAY ==
[2022-06-08 14:06] VITALS: BP 164/100; PULSE 79; RESP 15; TEMP 36.5; O2SAT 99; BMI 32.1
--- NOTE | 2022-06-08 14:54 | XRR_ITS ---
PROCEDURE INFORMATION: Exam: XR Right Ribs Exam date and time: 06/08/2022 3:12 PM Age: 42 years old Clinical indication: Pain and injury or trauma; Fall; Rib area; Blunt trauma (contusions or hematomas); Chest wall pain; Right; Additional info: Fall with right side rib pain TECHNIQUE: Imaging protocol: Radiologic exam of the Right ribs. Views: 2 views. COMPARISON: CR XR chest 2V* [id number] 04/22/2021 5:48 PM FINDINGS: Bones/joints: There is no evidence for acute fracture or malalignment. Soft tissues: Normal. XR/XR ribs RT 2V* [id number] IMPRESSION: No acute findings.
[2022-06-08 15:36] VITALS: BP 148/99; PULSE 83; RESP 15; TEMP 36.7; O2SAT 98
--- NOTE | 2022-06-08 17:02 | ED_ITS ---
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 He reports that his boot slipped and he fell his whole body weight onto his right side rib cage on that pipe fence. He reports that he has pain with deep inspiration but is not experiencing shortness of breath. He reports that he does have often times difficulty breathing with exertion. And that is a chronic finding. He does offer that he also has chronic kidney disease. Associated symptoms: Deny chest pain, dyspnea or palpitations Review of Systems Const: Denies: fever(s) or chills Card: Denies: chest pain, palpitations or irregular heart rhythm Resp: Reports: wheezing (Chronic) and pain on inspiration; Denies: dyspnea, productive cough or non-productive cough PFSH ED PFSH: Medical History Acute respiratory failure with hypoxia Resolved Asthma with exacerbation Resolved Benign essential HTN Chronic kidney disease, stage 3 (moderate) -has known CKD stage 3; baseline Cr is around 1.3-1.5 -renal function at baseline CVA (cerebral vascular accident) History of asthma As a child Nicotine dependence, chewing tobacco, with unspecified nicotine-induced disorders Surgical History History of facial surgery History of hand surgery Family History Brother Cancer Grandfather Cancer Grandmother Cancer Family/Other Cancer Other Alcoholic CAD (coronary artery disease) Chronic kidney disease (CKD) Diabetes Stroke Social History Smoking and tobacco status: former smoker (uses chewing tobacco daily) Quit status (tobacco): has quit using tobacco Year quit tobacco: 2012 - 2 ciggs x 30 Years Former quit date comment: Chews tobacco daily Second hand smoke exposure: Yes Alcohol intake: current Alcohol intake frequency: 3 or more drinks per day Alcohol type: hard liquor Lives independently: Yes Household members: spouse Marital status: Current occupational status: employed Current occupational exposures/hazards: Yes (Dust, Feed Dust, Chemicals, Animal Dander) History of recent travel: No Current gender identity: Male Physical Exam Const: COMMON NORMALS: no acute distress, patient oriented x3 and alert Neck/C-Spine: COMMON NORMALS: no JVD Chest: OTHER: Tenderness to palpation right lateral and lower ribs. No obvious bony deformity or step-off appreciated. No bruising, swelling. Respirations are even and nonlabored. Negative for crepitus Resp: COMMON NORMALS: normal respiratory effort, No use of accessory muscles and clear to auscultation bilaterally AUSCULTATION: clear to auscultation bilaterally Cardio: COMMON NORMALS: no JVD, regular rate, regular rhythm, S1 normal heart sound present and S2 normal heart sound present RATE: regular rate RHYTHM: regular rhythm HEART SOUNDS: S1 normal heart sound present and S2 normal heart sound present Neuro: COMMON NORMALS: patient oriented x3 SENSORIUM/ORIENTATION: Yes alert Course Vital Signs: Vital signs: Vital Signs Temperature 98.0 F 06/08/22 15:36 Pulse Rate 83 06/08/22 15:36 Respiratory Rate 15 06/08/22 15:36 Blood Pressure 148/99 06/08/22 15:36 Pulse Oximetry 98 06/08/22 15:36 Oxygen Delivery Me thod 06/08/22 15:36 [facility] - General Adult Medical Decision Making Consider rib fracture, rib contusion. X-ray shows no acute findings. Treat patient for rib contusion. Lengthy discussion held about conservative treatment at home. Discussed the importance of splinting so that he can cough and deep breathe to maintain good oxygenation. Discussed the risk of pneumonia after rib trauma. Patient cannot take NSAIDs at this stage III kidney disease. I consulted with Dr. Crespo regarding this patient's care. Dr. Lockett agreed to provide pain control hydrocodone 5 mg 325 mg 1 p.o. every 4-6 hours as needed for pain #15 tabs no refills. Discharge instructions given to the patient. He verbalized understanding. Patient is discharged in stable condition. Follow-up with primary care provider. Return to the ER for new or worsening symptoms. Lab Data Radiology Impressions Ribs X-Ray 06/08/22 14:54 IMPRESSION: No acute findings. Discharge Plan Discharge Patient Disposition: Home Clinical Impression: Contusion of rib on right side Condition: Stable Prescriptions: No Action montelukast [Singulair] 10 mg tablet 10 mg PO DAILY@0600 Qty: 30 3RF Trelegy Ellipta 200-62.5-25 mcg blister with device 1 inh inhalation DAILY Qty: 60 11RF amlodipine 10 mg tablet 10 mg PO DAILY@0600 Qty: 30 5RF lisinopril 20 mg tablet 20 mg PO BID Qty: 60 5RF One-A-Day Men's 50 Plus 400-20-370 mcg tablet 1 tab PO DAILY atorvastatin 40 mg tablet 40 mg PO BEDTIME@2200 pantoprazole 40 mg tablet,delayed release (DR/EC) 40 mg PO DAILY@0600 Discharge Orders: Discharge ED (Routine); Ordered 06/08/22 Ordered By: Zoya Mcmillan Discharge Diet: Usual diet Discharge Activity: Increase activity as tolerated Patient Instructions: Rib Contusion (ED) Activity Restrictions/Additional Instructions: Take hydrocodone as directed as needed for pain. Do not drive after taking hydrocodone do not drink or take any other medications that make you sleepy with this medication. Make sure that you are splinting so that you can cough and deep breathe frequently throughout the day to help prevent development of pneumonia. Follow-up with primary care provider as needed. Return to the ER for new or worsening symptom Coding Level of Care Code ED Final Assembly And Packing Supervisor for Chg Fwd Exam Expanded Problem Focused Documented by User: Favio Crespo DO 06/08/22 18:11 HPI - General Adult General: Chief complaint: General Medical Stated complaint: possible broken ribs Time Seen by Provider: 06/08/22 16:31 PFSH ED PFSH: Medical History Acute respiratory failure with hypoxia Resolved Asthma with exacerbation Resolved Benign essential HTN Chronic kidney disease, stage 3 (moderate) -has known CKD stage 3; baseline Cr is around 1.3-1.5 -renal function at baseline CVA (cerebral vascular accident) History of asthma As a child Nicotine dependence, chewing tobacco, with unspecified nicotine-induced disorders Surgical History History of facial surgery History of hand surgery Family History Brother Cancer Grandfather Cancer Grandmother Cancer Family/Other Cancer Other Alcoholic CAD (coronary artery disease) Chronic kidney disease (CKD) Diabetes Stroke Social History Smoking and tobacco status: former smoker (uses chewing tobacco daily) Quit status (tobacco): has quit using tobacco Year quit tobacco: 2011 - ciggs x 30 Years Former quit date comment: Chews tobacco daily Second hand smoke exposure: Yes Alcohol intake: current Alcohol intake frequency: 3 or more drinks per day Alcohol type: hard liquor Lives independently: Yes Household members: spouse Marital status: Current occupational status: employed Current occupational exposures/hazards: Yes (Dust, Feed Dust, Chemicals, Animal Dander) History of recent travel: No Current gender identity: Male Course Vital Signs: Vital signs: Vital Signs Temperature 98.0 F 06/08/22 15:36 Pulse Rate 83 06/08/22 15:36 Respiratory Rate 15 06/08/22 15:36 Blood Pressure 148/99 06/08/22 15:36 Pulse Oximetry 98 06/08/22 15:36 Oxygen Delivery Me thod 06/08/22 15:36 MDM - General Adult Medical Decision Making Consider rib fracture, rib contusion. X-ray shows no acute findings. Treat patient for rib contusion. Lengthy discussion held about conservative treatment at home. Discussed the importance of splinting so that he can cough and deep breathe to maintain good oxygenation. Discussed the risk of pneumonia after rib trauma. Patient cannot take NSAIDs at this stage III kidney disease. I consulted with Dr. Crespo regarding this patient's care. Dr. Lockett agreed to provide pain control hydrocodone 5 mg 325 mg 1 p.o. every 4-6 hours as needed for pain #15 tabs no refills. Discharge instructions given to the patient. He verbalized understanding. Patient is discharged in stable condition. Follow- up with primary care provider. Return to the ER for new or worsening symptoms. Chart reviewed and patient discussed with midlevel. Agree with assessment and plan. Lab Data Radiology Impressions Ribs X-Ray 06/08/22 14:54 IMPRESSION: No acute findings. Discharge Plan Discharge Patient Disposition: Home Clinical Impression: Contusion of rib on right side Condition: Stable Prescriptions: No Action montelukast [Singulair] 10 mg tablet 10 mg PO DAILY@0600 Qty: 30 3RF Trelegy Ellipta 200-62.5-25 mcg blister with device 1 inh inhalation DAILY Qty: 60 11RF amlodipine 10 mg tablet 10 mg PO DAILY@0600 Qty: 30 5RF lisinopril 20 mg tablet 20 mg PO BID Qty: 60 5RF One-A-Day Men's 50 Plus 400-20-370 mcg tablet 1 tab PO DAILY atorvastatin 40 mg tablet 40 mg PO BEDTIME@2200 pantoprazole 40 mg tablet,delayed release (DR/EC) 40 mg PO DAILY@0600 Discharge Orders: Discharge ED (Routine); Ordered 06/08/22 Ordered By: Zoya Mcmillan Discharge Diet: Usual diet Discharge Activity: Increase activity as tolerated Patient Instructions: Rib Contusion (ED) Activity Restrictions/Additional Instructions: Take hydrocodone as directed as needed for pain. Do not drive after taking hydrocodone do not drink or take any other medications that make you sleepy with this medication. Make sure that you are splinting so that you can cough and deep breathe frequently throughout the day to help prevent development of pneumonia. Follow-up with primary care provider as needed. Return to the ER for new or worsening symptom Coding Level of Care Code ED Final Assembly And Packing Supervisor for Stella Fweligio Exam Expanded Problem Focused
== END 2022-06-08 17:22 | disposition home or self-care (01) ==
PROVIDERS: Emergency Provider Nurse Practitioner Family
DX: S20.211A Contusion of right front wall of thorax, initial encounter (principal); I12.9 Hypertensive chronic kidney disease with stage 1 through stage 4 chronic kidney disease, or unspecified chronic kidney disease; N18.30 Chronic kidney disease, stage 3 unspecified; Z86.73 Personal history of transient ischemic attack (TIA), and cerebral infarction without residual deficits; F17.220 Nicotine dependence, chewing tobacco, uncomplicated; W19.XXXA Unspecified fall, initial encounter
CPT/HCPCS: 71100; 99283

== ENCOUNTER 2023-04-21 17:39 | Emergency (ER) | payer OTHER, SELFPAY ==
[2023-04-21] VITALS (9 sets, daily range): BP systolic 149–178; BP diastolic 100–139; PULSE 88–120; RESP 18–30; TEMP 37; O2SAT 92–98; BMI 26.2
--- NOTE | 2023-04-21 17:46 | ECG_ITS ---
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 Measurements Intervals [place] Rate: 106 P: 76 UT: 177 QRS: 95 QRSD: 86 T: 59 QT: 309 QTc: 410 Interpretive Statements SINUS TACHYCARDIA POSSIBLE LEFT ATRIAL ENLARGEMENT [-0.1mV P-WAVE IN V1/V2] BORDERLINE RIGHT AXIS DEVIATION [QRS AXIS > 90] SEPTAL MYOCARDIAL INFARCTION , OF INDETERMINATE AGE [40+ ms Q WAVE IN V1/V2] Compared to ECG 09/09/2020 18:35:48 Myocardial infarct finding now present Electronically Signed On 04-22-2023 19:22:14 CDT by Margarita Park M.D. [id number]
--- NOTE | 2023-04-21 17:48 | XRR_ITS ---
PROCEDURE INFORMATION: Exam: XR Chest Exam date and time: 04/21/2023 5:56 PM Age: 43 years old Clinical indication: Bronchospasm and shortness of breath and wheezing; Patient HX: SOB; Chest tightness; Wheezing; No cardiac HX; PT states that he has had episodes like this before with no diagnosis. TECHNIQUE: Imaging protocol: Radiologic exam of the chest. Views: 1 view. COMPARISON: CR XR chest 2V* [id number] 04/22/2021 5:48 PM FINDINGS: Lungs: Unremarkable. No consolidation. Pleural spaces: Unremarkable. No pleural effusion. No pneumothorax. Heart/Mediastinum: Unremarkable. No cardiomegaly. Bones/joints: Unremarkable. XR/XR chest 1V portable [id number] IMPRESSION: No acute findings.
[2023-04-21 17:54] LABS: Basophils # 0.1 10^3/uL (0.0-0.1); Eosinophils # 1.5 10^3/uL (0.0-0.8); Eosinophils % 16.3 %; Hematocrit 53.4 % (37-53); Lymphocytes # 3.8 10^3/uL (0.8-4.8); Lymphocytes % 40.1 %; Mean Corpuscular HGB Conc 33.9 g/dL (30-55); Mean Corpuscular Hemoglobin 31.9 pg (27-33); Mean Corpuscular Volume 94.2 fl (82-101); Monocytes # 0.6 10^3/uL (0.2-0.9); Monocytes % 6.7 %; Neutrophils # 3.38 10^3/uL (1.8-7.7); Neutrophils % 35.7 %; Nucleated Red Blood Cells % 0 %; Platelet Count 249 10^3/cmm (157-399); Red Blood Count 5.67 10^6/uL (3.85-5.65); Red Cell Distribution Width 13.4 % (12.1-15.1); White Blood Count 9.45 10^3/uL (3.29-11.43)
[2023-04-21] MEDS: dexamethasone 10 mg/mL INJ IVP (17:54)
--- NOTE | 2023-04-21 18:05 | ED_ITS ---
HPI - SOB/Dyspnea General: Chief Complaint: Shortness of Breath/Dyspnea Stated Complaint: SOB Time Seen by Provider: 04/21/23 17:48 Source: patient Mode of arrival: ambulatory Limitations: no limitations History of Present Illness: HPI Narrative: 43-year-old male has a history of he states breathing issues likely COPD or asthma. States that he had increased shortness of breath this morning got extremely short of breath roughly an hour ago he is tachypneic and in distress h ere with audible wheezing he states he tried his rescue inhaler with no improvement he is feeling diaphoretic denied any chest pain he had no fevers he has had a cough. Associated symptoms: Deny abdominal pain, chest pain, fever(s), nausea or vomiting Review of Systems Const: Denies: fever(s), chills, body aches or change in appetite Eyes: Denies: blurry vision or eye discomfort ENMT: Denies: throat pain or dental pain Card: Denies: chest pain Resp: Reports: dyspnea, non-productive cough and wheezing GI: Denies: abdominal pain, nausea, vomiting or diarrhea : Denies: dysuria Musc: Denies: neck pain or back pain Skin/Breast: Denies: rash Neuro: Denies: headache(s) PFSH ED PFSH: Medical History Acute respiratory failure with hypoxia Resolved Asthma with exacerbation Resolved Benign essential HTN Chronic kidney disease, stage 3 (moderate) -has known CKD stage 3; baseline Cr is around 1.3-1.5 -renal function at baseline CVA (cerebral vascular accident) History of asthma As a child Nicotine dependence, chewing tobacco, with unspecified nicotine-induced disorders Surgical History History of facial surgery History of hand surgery Family History Brother Cancer Grandfather Cancer Grandmother Cancer Family/Other Cancer Other Alcoholic CAD (coronary artery disease) Chronic kidney disease (CKD) Diabetes Stroke Social History Smoking and tobacco/nicotine status: former use of tobacco/nicotine (uses chewing tobacco daily) Quit status (tobacco/nicotine): has quit using Year quit tobacco: 2011 - ciggs x 30 Years Former quit date comment: Chews tobacco daily Second hand smoke exposure: Yes Alcohol intake: current Alcohol intake frequency: 3 or more drinks per day Alcohol type: hard liquor Substance/Drug Use: never Lives independently: Yes Household members: spouse Marital status: Current occupational status: employed Current occupational exposures/hazards: Yes (Dust, Feed Dust, Chemicals, Animal Dander) Do you think of yourself as: Straight/Heterosexual Current gender identity: Male Physical Exam Const: COMMON NORMALS: patient oriented x3 GENERAL APPEARANCE: in distress HENMT: COMMON NORMALS: normocephalic and atraumatic HEAD & SCALP: normocephalic and atraumatic Eye: COMMON NORMALS: Equal, round and reactive pupils present and EOMs intact bilaterally PUPIL: Yes Equal, round and reactive pupils present Neck/C-Spine: COMMON NORMALS: full ROM and supple Chest: COMMONS NORMALS: normal inspection of the chest and normal palpation of entire chest wall Resp: EFFORT & INSPECTION: Yes tachypneic and Yes labored AUSCULTATION: wheezes Cardio: COMMON NORMALS: regular rate, regular rhythm and No murmurs present (Cardio) RATE: regular rate RHYTHM: regular rhythm GI: COMMON NORMALS: Normal to inspection, nondistended, normoactive bowel sounds present, Soft to palpation, non-tender and no masses PALPATION: Yes Soft to palpation Extremity: COMMON NORMALS: normal to inspection and full ROM Neuro: COMMON NORMALS: patient oriented x3, moves all extremities and no focal motor deficits Psych: COMMON NORMALS: mental status grossly normal, Normal thought process present and cooperative THOUGHT PROCESS: Normal thought process present Skin: COMMON NORMALS: no rashes or lesions noted and no wounds GENERAL SKIN EXAM: no rashes or lesions noted Course Vital Signs: Vital signs: Vital Signs Temperature 98.6 F 04/21/23 17:51 Pulse Rate 97 04/21/23 20:01 Respiratory Rate 20 H 04/21/23 20:01 Blood Pressure 150/110 04/21/23 20:01 Pulse Oximetry 98 04/21/23 20:01 Oxygen Delivery Me thod Room Air 04/21/23 19:43 MDM - SOB/Dyspnea Medical Decision Making Patient presents here with likely asthma exacerbation. He feels much improved after breathing treatments pulse ox here has been normal I did offer him admissi on he states he like to try treatment at home he does not have an albuterol inhaler we will dispense him 1 for home I will write prescription for albuterol along with steroids and antibiotic he is return if worsening he understands agrees to plan. Medical Records I reviewed the patient's medical records. Lab Data I reviewed the patient's lab results. 04/21/23 17:51 04/21/23 17:51 Labs/Radiology: Radiology Impressions Chest X-Ray 04/21/23 17:48 IMPRESSION: No acute findings. Laboratory Results WBC 9.45 10^3/uL (3.29-11.43) 04/21/23 17:51 RBC 5.67 10^6/uL (3.85-5.65) H 04/21/23 17:51 Hgb 18.10 g/dL (11.27-16.99) H 04/21/23 17:51 Hct 53.4 % (37-53) H 04/21/23 17:51 MCV 94.2 fl (82-101) 04/21/23 17:51 MCH 31.9 pg (27-33) 04/21/23 17:51 MCHC 33.9 g/dL (30-55) 04/21/23 17:51 RDW 13.4 % (12.1-15.1) 04/21/23 17:51 Plt Count 249 10^3/cmm (157-399) 04/21/23 17:51 MPV 9.0 fL (7.4-10.4) 04/21/23 17:51 Neut % (Auto) 35.7 % 04/21/23 17:51 Lymph % (Auto) 40.1 % 04/21/23 17:51 [place] % (Auto) 6.7 % 04/21/23 17:51 Eos % (Auto) 16.3 % 04/21/23 17:51 Baso % (Auto) 1.0 % 04/21/23 17:51 Neut # (Auto) 3.38 10^3/uL (1.8-7.7) 04/21/23 17:51 Lymph # (Auto) 3.8 10^3/uL (0.8-4.8) 04/21/23 17:51 [place] # (Auto) 0.6 10^3/uL (0.2-0.9) 04/21/23 17:51 Eos # (Auto) 1.5 10^3/uL (0.0-0.8) H 04/21/23 17:51 Baso # (Auto) 0.1 10^3/uL (0.0-0.1) 04/21/23 17:51 Nucleated RBC % (auto) 0 % 04/21/23 17:51 Nucleated RBCs # 0.0 /100WBC 04/21/23 17:51 Specimen Type Arterial 04/21/23 18:26 Sample Site Radial, right 04/21/23 18:26 ABG pH 7.42 (7.35-7.45) 04/21/23 18:26 ABG pCO2 34.0 mmHg (35-45) L 04/21/23 18:26 ABG pO2 66.1 mmHg (80.0-100.0) L 04/21/23 18:26 ABG HCO3 22.3 mmol/L (22-26) 04/21/23 18:26 ABG Base Excess -1.3 mmol/L (-2.0-2.0) 04/21/23 18:26 Josh Test Pos 04/21/23 18:26 Hematocrit 54.7 % (42-52) H 04/21/23 18:26 O2 Delivery Device Room air 04/21/23 18:26 Milk Delivery Driver ID Shemar 04/21/23 18:26 Sodium 140 mmol/L (136-145) 04/21/23 17:51 Potassium 4.2 mmol/L (3.5-5.1) 04/21/23 17:51 Chloride 103 mmol/L (98-107) 04/21/23 17:51 Carbon Dioxide 26 mmol/L (22-29) 04/21/23 17:51 Anion Gap 15.2 (5-19) 04/21/23 17:51 BUN 8 mg/dL (6-20) 04/21/23 17:51 Creatinine 1.4 mg/dL (0.7-1.2) H 04/21/23 17:51 GFR Calculation 54.8 mL/min (90-130) L 04/21/23 17:51 Glucose 76 mg/dL (65-115) 04/21/23 17:51 Calculated Osmolality 287 mOsm/kg (285-295) 04/21/23 17:51 Calcium 9.5 mg/dL (8.5-10.5) 04/21/23 17:51 Total Bilirubin 0.5 mg/dL (0.15-1.2) 04/21/23 17:51 AST 24 U/L (0-40) 04/21/23 17:51 ALT 32 U/L (0-41) 04/21/23 17:51 Alkaline Phosphatase 74 U/L (40-130) 04/21/23 17:51 Troponin T Baseline < 6 ng/L (0-15) 04/21/23 17:51 NT-Pro-B Natriuret Pep 39 pg/mL (0-125) 04/21/23 17:51 Total Protein 7.1 g/dL (6.6-8.7) 04/21/23 17:51 Albumin 4.6 g/dL (3.5-5.2) 04/21/23 17:51 Globulin 2.5 g/dL (1.3-4.6) 04/21/23 17:51 SARS-CoV-2 Ag (Rapid) negative (Negative) 04/21/23 18:26 All radiology interpretation(s) finalized by discharge Discharge Plan Discharge Patient Disposition: Home Clinical Impression: Asthma with exacerbation Condition: Stable Prescriptions: New prednisone 50 mg tablet 50 mg PO DAILY Qty: 5 0RF albuterol sulfate 90 mcg/actuation HFA aerosol inhaler 2 inh INHALATION Q6H PRN (Reason: shortness of breath or wheezing) Qty: 8 0RF doxycycline hyclate 100 mg tablet 100 mg PO BID 7 Days Qty: 14 0RF No Action albuterol sulfate [Ventolin HFA] 90 mcg/actuation HFA aerosol inhaler 2 puff inhalation Q6H PRN (Reason: shortness of breath or wheezing) Qty: 8.5 0RF prednisone 20 mg tablet See Rx Instructions PO BID Qty: 11 0RF Rx Instructions: 60mg the first day, then 40mg for 4 days. albuterol sulfate [Ventolin HFA] 90 mcg/actuation HFA aerosol inhaler 2 puff inhalation Q6H PRN (Reason: shortness of breath or wheezing) Qty: 8.5 0RF azithromycin 250 mg tablet See Rx Instructions PO .COMPLEX Qty: 6 0RF Rx Instructions: take 500 mg today (day 1), then 250 mg for 4 days (days 2-5) PO Discharge Orders: Discharge ED (Routine); Ordered 04/21/23 Ordered By: Lee Ann Gupta Discharge Diet: Advance as tolerated Discharge Activity: Resume usual activity Patient Instructions: Asthma (ED) Coding Level of Care Code ED Radial Drill Press Operator for Stella Peck
[2023-04-21] MEDS: ipratropium-albuterol 3 mL Neb INHALATION (18:08)
[2023-04-21 18:19] LABS: Alanine Aminotransferase 32 U/L (0-41); Albumin Level 4.6 g/dL (3.5-5.2); Alkaline Phosphatase 74 U/L (40-130); Anion Gap 15.2 (5-19); Aspartate Amino Transferase 24 U/L (0-40); Blood Urea Nitrogen 8 mg/dL (6-20); Calcium 9.5 mg/dL (8.5-10.5); Carbon Dioxide 26 mmol/L (22-29); Chloride 103 mmol/L (98-107); Globulin 2.5 g/dL (1.3-4.6); Glomerular Filtration Rate 54.8 mL/min (90-130); Glucose 76 mg/dL (65-115); Osmolality Calculated 287 mOsm/kg (285-295); Potassium 4.2 mmol/L (3.5-5.1); Sodium 140 mmol/L (136-145); Total Bilirubin 0.5 mg/dL (0.15-1.2); Total Protein 7.1 g/dL (6.6-8.7)
[2023-04-21 18:22] LABS: Troponin(5th) Baseline < 6 ng/L (0-15)
[2023-04-21 18:29] LABS: NT Pro B Type Natriuretic Pept 39 pg/mL (0-125)
[2023-04-21 18:37] LABS: ABG PH Result 7.42 (7.35-7.45); Arterial Blood Gas Hematocrit 54.7 % (42-52); Base Excess ABG -1.3 mmol/L (-2.0-2.0); Blood Gas Allen Test Pos; Blood Gas Sample Site Radial, right; Blood Gas Sample Type Arterial; HCO3 ABG 22.3 mmol/L (22-26); Oxygen Device ROOM AIR; PO2 ABG 66.1 mmHg (80.0-100.0)
--- NOTE | 2023-04-21 18:46 | PC.NURSE ---
pt placed on continuous nibp, spo2, and cm
[2023-04-21 18:54] LABS: SARS Covid-2 Antigen negative (Negative)
[2023-04-21] MEDS: doxycycline 100 mg Tablet PO (19:32)
[2023-04-21] MEDS: albuterol 2.5 mg/3 mL Neb 5 MG INHALATION (19:42)
[2023-04-21] MEDS: albuterol 8 gm MDI 2 PUFF INHALATION (19:43)
== END 2023-04-21 20:02 | disposition home or self-care (01) ==
PROVIDERS: Family Medicine; Emergency Provider Emergency Medicine
DX: J45.901 Unspecified asthma with (acute) exacerbation (principal); Z11.52 Encounter for screening for COVID-19; Z87.891 Personal history of nicotine dependence; I12.9 Hypertensive chronic kidney disease with stage 1 through stage 4 chronic kidney disease, or unspecified chronic kidney disease; N18.30 Chronic kidney disease, stage 3 unspecified; Z86.73 Personal history of transient ischemic attack (TIA), and cerebral infarction without residual deficits
CPT/HCPCS: 36600; 71045; 80053; 82803; 83880; 84484; 85025; 87426; 93005; 94640; 96374; 99285; J1100; J3535; J7613

== ENCOUNTER 2025-01-09 18:09 | Emergency (ER) | payer OTHER, SELFPAY ==
[2025-01-09 18:12] VITALS: BP 154/99; PULSE 81; RESP 16; TEMP 37.4; O2SAT 98; BMI 29.5
--- NOTE | 2025-01-09 18:16 | ECG_ITS ---
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
--- NOTE | 2025-01-09 18:55 | XRR_ITS ---
PROCEDURE INFORMATION: Exam: XR Chest Exam date and time: 01/09/2025 6:58 PM Age: 45 years old Clinical indication: Pain; Chest pressure; Additional info: Chest pain TECHNIQUE: Imaging protocol: Radiologic exam of the chest. Views: 1 view. COMPARISON: CR XR chest 1V portable [id number] 04/21/2023 5:56 PM FINDINGS: Lungs: Clear, symmetrically inflated lungs. Pleural spaces: No pleural effusion. No pneumothorax. Heart/Mediastinum: Cardiac silhouette is normal in size for technique. Bones/joints: Age appropriate. XR/XR chest 1V portable [id number] IMPRESSION: No acute cardiopulmonary abnormality.
[2025-01-09 19:29] LABS: Hematocrit 50.0 % (37-53); Hemoglobin 17.00 g/dL (11.27-16.99); Mean Corpuscular HGB Conc 34.0 g/dL (30-55); Mean Corpuscular Hemoglobin 31.7 pg (27-33); Mean Corpuscular Volume 93.1 fl (82-101); Nucleated Red Blood Cells % 0 %; Platelet Count 213 10^3/cmm (157-399); Red Blood Count 5.37 10^6/uL (3.85-5.65); White Blood Count 10.81 10^3/uL (3.29-11.43)
[2025-01-09 19:47] LABS: Alanine Aminotransferase 24 U/L (0-41); Albumin Level 4.4 g/dL (3.5-5.2); Alkaline Phosphatase 73 U/L (40-130); Anion Gap 17.1 (5-19); Aspartate Amino Transferase 19 U/L (0-40); Blood Urea Nitrogen 7 mg/dL (6-20); Calcium 9.2 mg/dL (8.5-10.5); Carbon Dioxide 24 mmol/L (22-29); Chloride 98 mmol/L (98-107); Creatinine Clr Calc Pharmacy 108.1773; Globulin 2.9 g/dL (1.3-4.6); Glucose 91 mg/dL (65-115); Osmolality Calculated 278 mOsm/kg (285-295); Potassium 4.1 mmol/L (3.5-5.1); Sodium 135 mmol/L (136-145); Total Protein 7.3 g/dL (6.6-8.7)
[2025-01-09 19:48] LABS: Troponin(5th) Baseline < 6 ng/L (0-15)
[2025-01-09 20:45] VITALS: BP 155/89; PULSE 80; RESP 18; O2SAT 97
--- NOTE | 2025-01-09 20:59 | W.ED.WEAKNES ---
HPI - Weakness General: Chief complaint: Weakness Stated complaint: weakness Time Seen by Provider: 01/09/25 20:44 History of Present Illness: This patient is a 45 year old presenting with weakness, headache, feeling hot and cold, back pain, muscle pain since he passed on on Sunday while working out in the heat. 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 He started to have tunnel vision and felt like his legs wouldn't move - then he woke up in the [employer] office in the air conditioning. He doesn't know how long he was out. He doesn't know how he got there. He was about 5 miles away from the office when he passed out. He says that after he came to he slept for about 2 hours. He has felt bad since then - but has been able to work although it has been a struggle. He is concerned that his potassium might be low - that last time it was checked - about a month ago - it was 2.8. He has been taking OTC potassium supplements. He also tells me that he has extensive medical history including episodes of passing out - not necessarily associated with working in the heat or anything else - for many years. He also says that he was on oxygen 4 years ago because he had oxygen levels in the 60% range. He doesn't know why. He says that he was on 18 horse pills but he stopped going to the doctor and is on no medication now. He has had multiple injuries to his head, neck, back and many concussions. 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 He doesn't think he has ever been tested. He chews tobacco - nearly two containers per day and drinks 2 gallons of bourbon per week. He does not smoke or use other drugs although he has in the past. [facility] ED PFSH: Medical History Acute respiratory failure with hypoxia Resolved Asthma with exacerbation Resolved Benign essential HTN Chronic kidney disease, stage 3 (moderate) -has known CKD stage 3; baseline Cr is around 1.3-1.5 -renal function at baseline CVA (cerebral vascular accident) History of asthma As a child Nicotine dependence, chewing tobacco, with unspecified nicotine-induced disorders Surgical History History of facial surgery History of hand surgery Family History Brother Cancer Grandfather Cancer Grandmother Cancer Family/Other Cancer Other Alcoholic CAD (coronary artery disease) Chronic kidney disease (CKD) Diabetes Stroke Social History Smoking and tobacco/nicotine status: former use of tobacco/nicotine (uses chewing tobacco daily) Quit status (tobacco/nicotine): has quit using Year quit tobacco: 2011 - ciggs x 30 Years Former quit date comment: Chews tobacco daily Second hand smoke exposure: Yes Alcohol intake: current Alcohol intake frequency: 3 or more drinks per day Alcohol type: hard liquor Substance/Drug Use: never Lives independently: Yes Household members: spouse Marital status: Current occupational status: employed Current occupational exposures/hazards: Yes (Dust, Feed Dust, Chemicals, Animal Dander) Do you think of yourself as: Straight/Heterosexual Current gender identity: Male Physical Exam Const: COMMON NORMALS: no acute distress, patient oriented x3, no limitations and alert GENERAL APPEARANCE: cooperative and comfortable HENMT: HEAD & SCALP: normal to inspection FACE & SINUS: normal facial exam Eye: GENERAL EYE: appearance normal, both eyes and all related structures Neck/C-Spine: COMMON NORMALS: supple, no meningeal signs and no JVD Chest: COMMONS NORMALS: normal inspection of the chest Resp: COMMON NORMALS: normal respiratory effort, No use of accessory muscles and clear to auscultation bilaterally AUSCULTATION: clear to auscultation bilaterally Cardio: COMMON NORMALS: no JVD, regular rate, regular rhythm and No murmurs present (Cardio) RATE: regular rate RHYTHM: regular rhythm GI: COMMON NORMALS: Normal to inspection, nondistended, normoactive bowel sounds present, Soft to palpation and non-tender INSPECTION: Yes normal to inspection AUSCULTATION: Yes normoactive bowel sounds PALPATION: Yes Soft to palpation Back/Pelvis: COMMON NORMALS: thoracic and lumbar spine normal to inspection Extremity: COMMON NORMALS: normal to inspection Neuro: COMMON NORMALS: patient oriented x3, moves all extremities, no focal motor deficits and no sensory deficits noted SENSORIUM/ORIENTATION: Yes alert MENINGEAL SIGNS: Yes no meningeal signs Psych: COMMON NORMALS: mental status grossly normal, cooperative and normal affect Skin: COMMON NORMALS: no rashes or lesions noted and turgor normal GENERAL SKIN EXAM: no rashes or lesions noted and turgor normal Course Vital Signs: Vital signs: Vital Signs Temperature 99.4 F 01/09/25 18:12 Pulse Rate 80 01/09/25 22:00 Respiratory Rate 16 01/09/25 22:00 Blood Pressure 126/62 01/09/25 22:00 Pulse Oximetry 96 01/09/25 22:00 Oxygen Delivery Me thod Room Air 01/09/25 22:00 MDM - Weakness Medical Decision Making This patient is here with a syncopal episode 4 days ago and ongoing not feeling well. He reports a lot of medical history - but is not under the care of a PCP and is not on any medications. His exam is normal. His work up is normal. He was mildly dehydrated and was given a liter of fluid. He was encouraged to follow up with a PCP for further evaluation - but there is no indication for admission tonight. Lab Data 01/09/25 19:10 01/09/25 19:10 Radiology Impressions Chest X-Ray 01/09/25 18:55 IMPRESSION: No acute cardiopulmonary abnormality. Laboratory Results WBC 10.81 10^3/uL (3.29-11.43) 01/09/25 19:10 RBC 5.37 10^6/uL (3.85-5.65) 01/09/25 19:10 Hgb 17.00 g/dL (11.27-16.99) H 01/09/25 19:10 Hct 50.0 % (37-53) 01/09/25 19:10 MCV 93.1 fl (82-101) 01/09/25 19:10 MCH 31.7 pg (27-33) 01/09/25 19:10 MCHC 34.0 g/dL (30-55) 01/09/25 19:10 RDW 13.6 % (12.1-15.1) 01/09/25 19:10 Plt Count 213 10^3/cmm (157-399) 01/09/25 19:10 MPV 8.8 fL (7.4-10.4) 01/09/25 19:10 Neut % (Auto) 66.7 % 01/09/25 19:10 Lymph % (Auto) 19.3 % 01/09/25 19:10 [place] % (Auto) 7.0 % 01/09/25 19:10 Eos % (Auto) 6.1 % 01/09/25 19:10 Baso % (Auto) 0.5 % 01/09/25 19:10 Neut # (Auto) 7.21 10^3/uL (1.8-7.7) 01/09/25 19:10 Lymph # (Auto) 2.1 10^3/uL (0.8-4.8) 01/09/25 19:10 [place] # (Auto) 0.8 10^3/uL (0.2-0.9) 01/09/25 19:10 Eos # (Auto) 0.7 10^3/uL (0.0-0.8) 01/09/25 19:10 Baso # (Auto) 0.1 10^3/uL (0.0-0.1) 01/09/25 19:10 Nucleated RBC % (auto) 0 % 01/09/25 19:10 Nucleated RBCs # 0.0 /100WBC 01/09/25 19:10 Sodium 135 mmol/L (136-145) L 01/09/25 19:10 Potassium 4.1 mmol/L (3.5-5.1) 01/09/25 19:10 Chloride 98 mmol/L (98-107) 01/09/25 19:10 Carbon Dioxide 24 mmol/L (22-29) 01/09/25 19:10 Anion Gap 17.1 (5-19) 01/09/25 19:10 BUN 7 mg/dL (6-20) 01/09/25 19:10 Creatinine 1.3 mg/dL (0.7-1.2) H 01/09/25 19:10 GFR Calculation 59.2 mL/min (90-130) L 01/09/25 19:10 Glucose 91 mg/dL (65-115) 01/09/25 19:10 Calculated Osmolality 278 mOsm/kg (285-295) L 01/09/25 19:10 Calcium 9.2 mg/dL (8.5-10.5) 01/09/25 19:10 Total Bilirubin 1.0 mg/dL (0.15-1.2) 01/09/25 19:10 AST 19 U/L (0-40) 01/09/25 19:10 ALT 24 U/L (0-41) 01/09/25 19:10 Alkaline Phosphatase 73 U/L (40-130) 01/09/25 19:10 Troponin T Baseline < 6 ng/L (0-15) 01/09/25 19:10 Troponin T 120 Minute < 6.0 ng/L (0-15) 01/09/25 21:11 Delta Troponin T 0 ABS# (0-10) 01/09/25 21:11 Total Protein 7.3 g/dL (6.6-8.7) 01/09/25 19:10 Albumin 4.4 g/dL (3.5-5.2) 01/09/25 19:10 Globulin 2.9 g/dL (1.3-4.6) 01/09/25 19:10 Urine Color [place] (Yellow) A 01/09/25 21:17 Urine Appearance Clear (CLEAR) 01/09/25 21:17 Urine pH 6.5 (5-7) 01/09/25 21:17 Ur Specific [place] 1.006 (1.005-1.030) 01/09/25 21:17 Urine Protein Negative (Negative) 01/09/25 21:17 Urine Glucose (UA) Negative (Normal) 01/09/25 21:17 Urine Ketones Negative (Negative) 01/09/25 21:17 Urine Blood Negative (Negative) 01/09/25 21:17 Urine Nitrate Negative (Negative) 01/09/25 21:17 Urine Bilirubin Negative (Negative) 01/09/25 21:17 Urine Urobilinogen 1.0 mg/dL (Negative) 01/09/25 21:17 Ur Leukocyte Esterase Trace (Negative) A 01/09/25 21:17 Urine RBC 0-2 /hpf (0-2) 01/09/25 21:17 Urine WBC 0-5 /hpf (0-5) 01/09/25 21:17 Ur Squamous Epith Cells 0-5 /hpf (0-5) 01/09/25 21:17 Amorphous Sediment Not Reportable 01/09/25 21:17 Urine Bacteria None seen /hpf (NONE) 01/09/25 21:17 Hyaline Casts 0-4 /lpf H 01/09/25 21:17 All radiology interpretation(s) finalized by discharge Discharge Plan Discharge Patient Disposition: Home Clinical Impression: Dehydration, Syncope Condition: Stable Prescriptions: No Action albuterol sulfate [Ventolin HFA] 90 mcg/actuation HFA aerosol inhaler 2 puff inhalation Q6H PRN (Reason: shortness of breath or wheezing) Qty: 8.5 0RF prednisone 20 mg tablet See Rx Instructions PO BID Qty: 11 0RF Rx Instructions: 60mg the first day, then 40mg for 4 days. albuterol sulfate [Ventolin HFA] 90 mcg/actuation HFA aerosol inhaler 2 puff inhalation Q6H PRN (Reason: shortness of breath or wheezing) Qty: 8.5 0RF azithromycin 250 mg tablet See Rx Instructions PO .COMPLEX Qty: 6 0RF Rx Instructions: take 500 mg today (day 1), then 250 mg for 4 days (days 2-5) PO prednisone 50 mg tablet 50 mg PO DAILY Qty: 5 0RF albuterol sulfate 90 mcg/actuation HFA aerosol inhaler 2 inh INHALATION Q6H PRN (Reason: shortness of breath or wheezing) Qty: 8 0RF Discharge Orders: Discharge ED (Routine); Ordered 01/09/25 Ordered By: Mariana Kemp Patient Instructions: Opioid Safety, Pain Management, Patient Portal & Robert Instructions Print Language: Canadian Coding Level of Care Code ED 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 for 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 Fwd Related Data Previous Rx's ?Medication ?Instructions ?Recorded albuterol sulfate 90 mcg/actuation 2 puff inhalation Q6H PRN 11/06/22 aerosol inhaler (Ventolin HFA) shortness of breath or wheezing #8.5 grams albuterol sulfate 90 mcg/actuation 2 puff inhalation Q6H PRN 03/12/23 aerosol inhaler (Ventolin HFA) shortness of breath or wheezing #8.5 grams azithromycin 250 mg tablet See Rx Instructions PO .COMPLEX #6 03/12/23 tabs prednisone 20 mg tablet See Rx Instructions PO BID #11 tabs 03/12/23 albuterol sulfate 90 mcg/actuation 2 inh inhalation Q6H PRN shortness 04/21/23 aerosol inhaler of breath or wheezing #8 grams prednisone 50 mg tablet 50 mg PO DAILY #5 tabs 10/14/23 Allergies Allergy/AdvReac Type Severity Reaction Status Date / Time Penicillins Allergy Unknown Verified 01/09/25 18:19
--- NOTE | 2025-01-09 21:07 | ECG_ITS ---
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
[2025-01-09 21:23] LABS: Glucose Urine UA Negative (Normal); Nitrate Urine Negative (Negative); Specific Gravity, Urine 1.006 (1.005-1.030)
[2025-01-09 21:28] LABS: Add Urine Microscopic? YES
[2025-01-09 21:40] LABS: Troponin 5 2HR < 6.0 ng/L (0-15); Troponin 5 2HR Delta 0 ABS# (0-10)
[2025-01-09 22:00] VITALS: BP 122/87; BP 126/62; BP 144/90; PULSE 80; RESP 16; O2SAT 96
[2025-01-09 23:10] VITALS: BP 122/79; PULSE 74; RESP 16; TEMP 37.2; O2SAT 97
== END 2025-01-09 23:11 | disposition home or self-care (01) ==
PROVIDERS: Emergency Medicine; Emergency Provider Emergency Medicine
DX: E86.0 Dehydration (principal); R55 Syncope and collapse; F17.220 Nicotine dependence, chewing tobacco, uncomplicated; I12.9 Hypertensive chronic kidney disease with stage 1 through stage 4 chronic kidney disease, or unspecified chronic kidney disease; N18.9 Chronic kidney disease, unspecified
CPT/HCPCS: 36415; 71045; 80053; 81001; 84484; 85025; 93005; 93010; 96360; 96361; 99285; J7030

== ENCOUNTER 2025-03-20 23:37 | Emergency (ER) | payer OTHER, SELFPAY ==
[2025-03-20 23:39] VITALS: BP 152/92; PULSE 79; RESP 16; TEMP 36.6; O2SAT 97; BMI 32.1
== END 2025-03-21 02:19 | disposition left against medical advice (07) ==
PROVIDERS: Emergency Provider Emergency Medicine
DX: Z53.21 Procedure and treatment not carried out due to patient leaving prior to being seen by health care provider (principal)

== ENCOUNTER 2025-03-21 10:03 | Emergency (ER) | payer OTHER, SELFPAY ==
[2025-03-21 10:10] VITALS: BP 164/121; PULSE 89; RESP 20; TEMP 36.4; O2SAT 98
[2025-03-21] MEDS: tetanus-dipt-pertussis 0.5 mL SDV IM (10:23)
[2025-03-21] MEDS: lidocaine-epi 1% 20 mL INJ INJECTION (10:43)
--- NOTE | 2025-03-21 12:11 | ED_ITS ---
HPI - Wound/Laceration 2 General: Chief Complaint: Wound/Laceration Stated Complaint: R hand Cut Time Seen by Provider: 03/21/25 10:07 History of Present Illness: 45-year-old male presents emergency room with laceration on his dorsum of his right hand after he was removing a window that occurred last night. He is unsure of his last tetanus shot Related Data Home Medications ?Medication ?Instructions ?Recorded ?Confirmed ibuprofen 200 mg tablet (Advil) 800 mg PO Q6H PRN Feve r Or Pain 03/21/25 03/21/25 Allergies Allergy/AdvReac Type Severity Reaction Status Date / Time Penicillins Allergy Unknown Verified 03/20/25 23:44 [facility] ED 2 PFS: Medical History Asthma with exacerbation Resolved Acute respiratory failure with hypoxia Resolved Chronic kidney disease, stage 3 (moderate) -has known CKD stage 3; baseline Cr is around 1.3-1.5 -renal function at baseline History of asthma As a child Nicotine dependence, chewing tobacco, with unspecified nicotine-induced disorders CVA (cerebral vascular accident) Benign essential HTN Surgical History History of facial surgery History of hand surgery Family History Brother Cancer Grandfather Cancer Grandmother Cancer Family/Other Cancer Other Alcoholic CAD (coronary artery disease) Chronic kidney disease (CKD) Diabetes Stroke Social History Smoking and tobacco/nicotine status: former use of tobacco/nicotine (uses chewing tobacco daily) Quit status (tobacco/nicotine): has quit using Year quit tobacco: 2011 - 2 ciggs x 30 Years Former quit date comment: Chews tobacco daily Second hand smoke exposure: Yes Alcohol intake: current Alcohol intake frequency: 3 or more drinks per day Alcohol type: hard liquor Substance/Drug Use: never Lives independently: Yes Household members: spouse Marital status: Current occupational status: employed Current occupational exposures/hazards: Yes (Dust, Feed Dust, Chemicals, Animal Dander) Do you think of yourself as: Straight/Heterosexual Current gender identity: Male Physical Exam 2 Const: COMMON NORMALS: no acute distress GENERAL APPEARANCE: cooperative and comfortable ORIENTATION/CONSCIOUSNESS: Yes awake HENMT: COMMON NORMALS: normocephalic, atraumatic and hearing grossly normal bilaterally HEAD & SCALP: normocephalic and atraumatic Resp: COMMON NORMALS: normal respiratory effort, No retractions, No use of accessory muscles and clear to auscultation bilaterally AUSCULTATION: clear to auscultation bilaterally Extremity: OTHER: Procedures Laceration Laceration 1: Site: hand (Dorsal hand laceration overlying the proximal second metacarpal) Side (If applicable): right Size (cm): 2 Description: linear Depth: simple, single layer Local Anesthetic: lidocaine 1% and with epi Amount of anesthesia used (mL): 2 Pre-repair: irrigated extensively Skin layer closed with: nylon Size (cm): 4-0 Number of sutures: 1 Technique: running Laceration 2: Site: hand (Dorsal hand laceration overlying mid 3rd and 4th metacarpals) Side (If applicable): right Size (cm): 4 Description: linear Depth: simple, single layer Local Anesthetic: lidocaine 1% and with epi Amount of anesthesia used (mL): 3 Pre-repair: irrigated extensively Skin layer closed with: nylon Size (cm): 4-0 Number of sutures: 1 Technique: running Laceration 3: Site: hand (Laceration overlying dorsum of distal fifth metacarpal) Side (If applicable): right Size (cm): 2.5 Description: flap Local Anesthetic: lidocaine 1% and with epi Amount of anesthesia used (mL): 1 Pre-repair: irrigated extensively Skin layer closed with: nylon Size (cm): 4-0 Number of sutures: 1 Technique: running Course 2 Vital Signs: Vital signs: Vital Signs Temperature 97.6 F 03/21/25 10:10 Pulse Rate 89 03/21/25 10:10 Respiratory Rate 20 H 03/21/25 10:10 Blood Pressure 164/121 03/21/25 10:10 Pulse Oximetry 98 03/21/25 10:10 Oxygen Delivery Me thod Room Air 03/21/25 10:10 MDM - Wound/Laceration Medical Decision Making Tetanus updated. Lacerations of the dorsum of the right hand closed, see description above. Will discharge patient home apply topical antibiotic ointment to the wounds wound care instructions given sutures to be removed in 7 to 10 days. No radiology studies performed this visit Discharge Plan Discharge Patient Disposition: Home Clinical Impression: Laceration of hand Condition: Stable Prescriptions: No Action ibuprofen [Advil] 200 mg Tablet 800 mg PO Q6H PRN (Reason: Fever Or Pain) Discharge Orders: Discharge ED (Routine); Ordered 03/21/25 Ordered By: Favio Crespo Discharge Diet: Usual diet Discharge Activity: Increase activity as tolerated Patient Instructions: Opioid Safety, Pain Management, Patient Portal & Robert Instructions Activity Restrictions/Additional Instructions: [facility] your healthcare needs today. It is very important that you follow up as instructed or that you return to the Emergency Department should you have concerns or if your condition changes or worsens in any way. Emergency department visits are focused on emergent conditions, in some cases you may require further evaluation on an outpatient basis. You were seen in the emergency room after sustaining a laceration to your hand. Apply [id number] topical antibiotic ointment to the wound twice a day until the stitches are removed. Stitches should be removed in 7 to 10 days. Keep the wound when you are working. In the evenings if you are not working you should leave it open to the air for at least a few hours a night. Return if there are any signs of infection (Please note that included in your discharge packet is information concerning opioid safety and pain management. This information is given to all patients were discharged from the ER regardless of their discharge diagnosis or the medicines they usually take or are prescribed.) Print Language: Niuean Coding Level of Care Code ED Charter Boat Captain for Stella Peck
== END 2025-03-21 13:38 | disposition home or self-care (01) ==
PROVIDERS: Emergency Provider Family Medicine
DX: S61.411A Laceration without foreign body of right hand, initial encounter (principal); Z87.891 Personal history of nicotine dependence; Z86.73 Personal history of transient ischemic attack (TIA), and cerebral infarction without residual deficits; I12.9 Hypertensive chronic kidney disease with stage 1 through stage 4 chronic kidney disease, or unspecified chronic kidney disease; N18.30 Chronic kidney disease, stage 3 unspecified; X58.XXXA Exposure to other specified factors, initial encounter
CPT/HCPCS: 12004; 90471; 90715; 99283; J9999